=== PATIENT | female | born 1980 | race Caucasian/White ===

== ENCOUNTER 2020-04-11 17:10 | Inpatient (IN) | payer MEDICAID ==
[~2020-04-11] VITALS: Ht 160 cm; Wt 64.0 kg
[2020-04-11] MEDS ORDERED: IV NS 0.9% 1,000 ML BAG IV ONE ×2 (18:00→21:00)
--- NOTE | 2020-04-11 18:00 | NUR ---
SUDDEN ONSET EPIGASTRIC/RUQ PAIN X 15 MINS KITCHEN HAND. PT AAOX4, VSS. RR EVEN & UNLABORED. DENIES SOB, DIZZINESS, N/V/D AT THIS TIME. AWAITING EVAL BY DAYSI/PA. WILL CONT TO MONITOR.
[2020-04-11 18:04] LABS: BASOPHILS # (AUTO) 0.1 /CMM (0.0-0.2); BASOPHILS % (AUTO) 1.1 % (0.0-2.0); EOSINOPHILS % (AUTO) 1.3 % (0.0-6.0); HEMATOCRIT 32 % (33-45); HEMOGLOBIN 9.8 g/dL (11.5-14.8); LYMPHOCYTES # (AUTO) 1.7 /CMM (0.8-4.8); LYMPHOCYTES % (AUTO) 31.3 % (20.0-44.0); MEAN CORPUSCULAR HGB CONC 30 g/dl (31.0-36.0); MEAN CORPUSCULAR VOLUME 87 fL (82-100); MONOCYTES # (AUTO) 0.6 /CMM (0.1-1.30); MONOCYTES % (AUTO) 10.2 % (2.0-12.0); NEUTROPHILS % (AUTO) 56.1 % (43.0-81.0); PLATELET COUNT (AUTO) 185 /CMM (150-450); RED BLOOD CELL COUNT(AUTO) 3.73 MIL/uL (4.0-5.2); WHITE BLOOD COUNT (AUTO) 5.4 K/uL (4.3-11.0)
[2020-04-11 18:21] LABS: ALBUMIN 3.6 g/dL (3.4-5.0); BILIRUBIN,DIRECT 0.2 mg/dL (0.0-0.2); BILIRUBIN,TOTAL 0.5 mg/dL (0.2-1.0); TOTAL PROTEIN, SERUM 7.3 g/dL (6.4-8.2)
[2020-04-11] MEDS ORDERED: HYDROMORPHONE 1 MG/1 ML DISP.SYRIN ONE (18:35)
[2020-04-11] MEDS ORDERED: ONDANSETRON HCL/PF 4 MG/2 ML VIAL ONE (18:35)
[2020-04-11] MEDS ORDERED: LORAZEPAM INJ 2 MG/ML VIAL ONE (18:36)
--- NOTE | 2020-04-11 18:45 | NUR ---
MEDICATED FOR PAIN PER PA'S ORDER, PT JAMILA WELL.
[2020-04-11] MEDS ORDERED: LORAZEPAM INJ 2 MG/ML VIAL IV ONE (19:00)
[2020-04-11] MEDS ORDERED: ONDANSETRON HCL/PF - ER 4 MG/2 ML VIAL IV ONE (19:00)
[2020-04-11] MEDS ORDERED: HYDROMORPHONE 1 MG/1 ML DISP.SYRIN IV ONE (19:00)
--- NOTE | 2020-04-11 19:26 | NUR ---
PT TO CT VIA [facility].
--- NOTE | 2020-04-11 19:50 | NUR ---
PT BACK FROM CT. PT VSS. RR EVEN & UNLABORED. PT STS PAIN " A LITTLE BETTER " ABD PAIN 01/15. DENIES CP, SOB, DIZZINESS, N/V AT THIS TIME. WILL CONT TO MONITOR.
[2020-04-11] MEDS ORDERED: HALOPERIDOL LACTATE INJ 5 MG/ML VIAL IV ONE (21:00)
--- NOTE | 2020-04-11 21:32 | NUR ---
LAB CALLED REGARDING NEGATIVE COVID RESULT.
[2020-04-11 21:56] LABS: BILIRUBIN,URINE Negative (NEGATIVE); BLOOD, URINE Large Ery/uL (NEGATIVE); COLOR,URINE Yellow (YELLOW); LEUKOCYTE ESTERASE ,URINE Negative (NEGATIVE); NITRITE, URINE Negative (NEGATIVE); PH,URINE 7.5 (5.0-8.0); PROTEIN,URINE Trace mg/dl (NEGATIVE); UGLUCOSE Negative (NEGATIVE)
[2020-04-11] MEDS ORDERED: HALOPERIDOL LACTATE INJ 5 MG/ML VIAL ONE (21:58)
--- NOTE | 2020-04-11 21:59 | NUR ---
M/S 322-2
[2020-04-11 22:02] LABS: BACTERIA,URINE Rare /HPF (None Seen); RBC,URINE 21-50 /HPF (0-2); SQUAMOUS EPITHELIAL CELL,UR Few /HPF (None Seen); WBC,URINE NONE SEEN /HPF (0-3)
[2020-04-11 22:05] LABS: CALCIUM, SERUM 9.4 mg/dL (8.5-10.1); CREATININE 0.6 mg/dL (0.6-1.3); POTASSIUM 3.8 mmol/L (3.5-5.1)
--- NOTE | 2020-04-11 22:13 | NUR ---
REPORT GIVEN TO IOANA JONES FOR IRON.
[2020-04-11] MEDS ORDERED: ONDANSETRON HCL/PF 4 MG/2 ML VIAL IVP PRN (22:30)
[2020-04-11] MEDS ORDERED: Potassium Chloride 10 MEQ in IV D5/0.45 NACL 1,000 ML IV PRN (22:30)
[2020-04-11] MEDS ORDERED: ACETAMINOPHEN 650 MG/SUPP.RECT RC PRN (22:30)
--- NOTE | 2020-04-11 22:35 | NUR ---
RN MS OPENING ADMITTING NOTES RECEIVED PATIENT FROM ER SAFELY TRANSFERRED TO BED AMBULATORY STEADY, AWAKE ALERT AND ORIENTED X4, RESPIRATIONS EVEN AND UNLABORED WITH EQUAL RISE AND FALL OF CHEST, IV SITE TO RIGHT FA #22 G INTACT AND PATENT, NO REDNESS, NO INFILTRATION PRESENT, VS WNL, ORIENTED TO STAFF AND CALL LIGHT AND KEPT WITHIN REACH, SAFETY PRECAUTIONS RENDERED LOW BED AND LOCKED, BELONGINGS LIST DONE, DENIES ANY SKIN ISSUES, ALL NEEDS ATTENDED AT THIS TIME, WILL CONTINUE TO MONITOR AND ATTEND TO NEEDS.
[2020-04-11] MEDS: HYDROMORPHONE INJ 2 MG/ML DISP.SYRIN IV PRN (22:47)
--- NOTE | 2020-04-11 22:47 | NUR ---
RN NOTES PATIENT COMPLAINED OF PAIN 9/10 TO ABDOMEN AREA, REQUESTING FOR PAIN MEDICATION, DILAUDID PRN ORDERED GIVEN , WITNESSED AND WASTED WITH IOANA BRYAN, ALL NEEDS ATTENDED WILL CONTINUE TO MONITOR AND ATTEND TO NEEDS, AWAITING IVF FROM NIGHT LOCKER.
[2020-04-11 23:11] VITALS: BP 135/89
--- NOTE | 2020-04-11 23:47 | NUR ---
RN MS NOTES MD MADE AWARE D5 1/2 NS 10 MEQ POTASSIUM CHLORIDE NOT AVAILABLE WITH NEW ORDER FOR D5 1/2 NS AT 125ML/HR, ORDER READ BACK AND CARRIED OUT.
[2020-04-11] MEDS: IV D5/0.45 NACL 1,000 ML IV SCH (23:49)
[2020-04-12] MEDS: HYDROMORPHONE INJ 2 MG/ML DISP.SYRIN IV PRN ×5 (04:23→21:31)
--- NOTE | 2020-04-12 04:23 | NUR ---
rn notes patient c/o pain to abdomen 02/15 requested for pain medication, dilaudid prn given as ordered ,witness and wasted with meliton carr, vs wnl, will continue to monitor.
[2020-04-12 06:27] LABS: BASOPHILS % (AUTO) 0.3 % (0.0-2.0); EOSINOPHILS % (AUTO) 0.6 % (0.0-6.0); HEMATOCRIT 27 % (33-45); HEMOGLOBIN 8.4 g/dL (11.5-14.8); LYMPHOCYTES # (AUTO) 0.7 /CMM (0.8-4.8); LYMPHOCYTES % (AUTO) 15.5 % (20.0-44.0); MEAN CORPUSCULAR HGB CONC 31 g/dl (31.0-36.0); MEAN CORPUSCULAR VOLUME 84 fL (82-100); MONOCYTES # (AUTO) 0.4 /CMM (0.1-1.30); MONOCYTES % (AUTO) 10.4 % (2.0-12.0); NEUTROPHILS # (AUTO) 3.2 /CMM (1.8-8.9); NEUTROPHILS % (AUTO) 73.2 % (43.0-81.0); PLATELET COUNT (AUTO) 141 /CMM (150-450); RED BLOOD CELL COUNT(AUTO) 3.24 MIL/uL (4.0-5.2); WHITE BLOOD COUNT (AUTO) 4.3 K/uL (4.3-11.0)
[2020-04-12 06:48] LABS: ALBUMIN 2.7 g/dL (3.4-5.0); BILIRUBIN,TOTAL 0.5 mg/dL (0.2-1.0); CALCIUM, SERUM 7.7 mg/dL (8.5-10.1); CREATININE 0.4 mg/dL (0.6-1.3); MAGNESIUM 1.7 mg/dL (1.8-2.4); PHOSPHORUS 3.1 mg/dL (2.5-4.9); POTASSIUM 3.3 mmol/L (3.5-5.1); THYROID STIMULATING HORMONE 5.366 uIU/mL (0.358-3.74); TOTAL PROTEIN, SERUM 5.5 g/dL (6.4-8.2)
--- NOTE | 2020-04-12 06:53 | NUR ---
RN MS CLOSING NOTES PATIENT IN BED CURRENTLY SLEEPING , EASILY AROUSABLE. ALERT AND ORIENTED X4, RESPIRATIONS EVEN AND UNLABORED WITH EQUAL RISE AND FALL OF CHEST, IV SITE TO RIGHT FA #22 G INTACT AND PATENT, NO REDNESS, NO INFILTRATION PRESENT, VS WNL, IVF RUNNING ORDERED, CALL LIGHT KEPT WITHIN REACH, SAFETY PRECAUTIONS RENDERED LOW BED AND LOCKED, REMAINS NPO, DENIES ANY SKIN ISSUES, ALL NEEDS ATTENDED AT THIS TIME, WILL CONTINUE TO MONITOR AND ATTEND TO NEEDS AND ENDORSE TO NEXT SHIFT.
[2020-04-12] MEDS: IV D5/0.45 NACL 1,000 ML IV SCH (07:14)
--- NOTE | 2020-04-12 07:17 | NUR ---
RN MS NOTES TOILETING OFFERED STATES SHE IS OKAY DOESNT NEED TO USE RESTROOM AT THIS TIME.
--- NOTE | 2020-04-12 07:30 | NUR ---
RN OPENING NOTES RECEIVED PT IN BED. AWAKE ALERT AND ORIENTED X3. NO CARDIAC OR RESPIRATORY DISTRESS NOTED. NO SOB NOTED. SATURATING WELL ON ROOM AIR. CONTINOUS TO BE NPO. IV ACCESS NOTED ON RFA G20. INTACT AND PATENT AND FLUSHING WELL. NO S/D OF INFECTION OR INFILTRATION NOTED. SAFETY PRECAUTIONS IN PLACE. BED LOCKED AND IN LOW POSITION. SIDE RAILS UP X2. BED ALARM DICTAPHONE TRANSCRIBER LIGHT WITHIN REACH.
[2020-04-12 08:00] VITALS: BP 113/71
[2020-04-12] MEDS ORDERED: CLON0.5T PO (10:55)
[2020-04-12] MEDS: POTASSIUM CL. PREMIX PERIPHER. 50 ML IV SCH ×2 (12:06→13:05)
[2020-04-12] MEDS: LORAZEPAM INJ 2 MG/ML VIAL IV PRN ×2 (12:18→18:21)
[2020-04-12] MEDS: Magnesium 1GM/D5W 100ML PREMIX 100 ML IV SCH ×2 (14:20→15:41)
[2020-04-12] MEDS ORDERED: IBUP-1953 PO (14:50)
[2020-04-12 16:00] VITALS: BP 122/76
--- NOTE | 2020-04-12 18:20 | NUR ---
PT COMPLAINING OF ANXIETY AND BEING NERVOUS AND WORRIED. PROVIDED CALM ENVIRONMENT AND DISTRACTION. ADMINSTERED ATIVAN 1MG VIA IV. TOLERATED WELL.
--- NOTE | 2020-04-12 18:33 | NUR ---
RN CLOSING NOTES PT IN BED. AWAKE ALERT AND ORIENTED X3. NO CARDIAC OR RESPIRATORY DISTRESS NOTED. NO SOB NOTED. SATURATING WELL ON ROOM AIR. CONTINOUS TO BE NPO. IV ACCESS NOTED ON RFA G20. INTACT AND PATENT AND FLUSHING WELL. NO S/S OF INFECTION OR INFILTRATION NOTED. ALL NEEDS MET AND ATTENDED. ALL DUE MEDS ADMINISTERED. NO ASE NOTED. SAFETY PRECAUTIONS IN PLACE. BED LOCKED AND IN LOW POSITION. SIDE RAILS UP X2. BED ALARM EVENT CREW TECHNICIAN LIGHT WITHIN REACH.
--- NOTE | 2020-04-12 19:00 | NUR ---
RN MS OPENING NOTES RECEIVED PATIENT IN BED CURRENTLY SLEEPING , EASILY AROUSABLE. ALERT AND ORIENTED X4, RESPIRATIONS EVEN AND UNLABORED WITH EQUAL RISE AND FALL OF CHEST, IV SITE TO RIGHT FA #20 G INTACT AND PATENT, NO REDNESS, NO INFILTRATION PRESENT, VS WNL, IVF RUNNING ORDERED, ORIENTED TO STAFF AND CALL LIGHT, KEPT WITHIN REACH, SAFETY PRECAUTIONS RENDERED LOW BED AND LOCKED, REMAINS NPO, DENIES ANY SKIN ISSUES, ALL NEEDS ATTENDED AT THIS TIME, WILL CONTINUE TO MONITOR AND ATTEND TO NEEDS .
[2020-04-12 19:54] VITALS: BP 122/73
[2020-04-12 20:00] VITALS: BP 122/73
--- NOTE | 2020-04-12 21:33 | NUR ---
rn notes pt complained of pain 10/10 to abdomen area, requested for pain medication, dilaudid prn as ordered given. vs wnl.will continue to monitor for effectiveness. dilaudid prn was given as ordered, witnessed and wasted with meliton carr, 1mg/0.5ml was given, 1mg wasted.
[2020-04-13] MEDS: IV D5/0.45 NACL 1,000 ML IV SCH (02:34)
[2020-04-13] MEDS: HYDROMORPHONE INJ 2 MG/ML DISP.SYRIN IV PRN ×4 (02:46→19:31)
[2020-04-13 06:24] LABS: BASOPHILS % (AUTO) 0.4 % (0.0-2.0); EOSINOPHILS % (AUTO) 0.5 % (0.0-6.0); HEMATOCRIT 28 % (33-45); HEMOGLOBIN 8.9 g/dL (11.5-14.8); LYMPHOCYTES % (AUTO) 14.4 % (20.0-44.0); MEAN CORPUSCULAR HGB CONC 32 g/dl (31.0-36.0); MEAN CORPUSCULAR VOLUME 84 fL (82-100); MONOCYTES # (AUTO) 0.9 /CMM (0.1-1.30); MONOCYTES % (AUTO) 13.4 % (2.0-12.0); NEUTROPHILS # (AUTO) 4.9 /CMM (1.8-8.9); NEUTROPHILS % (AUTO) 71.3 % (43.0-81.0); PLATELET COUNT (AUTO) 147 /CMM (150-450); RED BLOOD CELL COUNT(AUTO) 3.36 MIL/uL (4.0-5.2); WHITE BLOOD COUNT (AUTO) 6.9 K/uL (4.3-11.0)
--- NOTE | 2020-04-13 06:26 | NUR ---
RN MS CLOSING NOTES PATIENT IN BED CURRENTLY SLEEPING , EASILY AROUSABLE. ALERT AND ORIENTED X4, RESPIRATIONS EVEN AND UNLABORED WITH EQUAL RISE AND FALL OF CHEST, IV SITE TO RIGHT FA #20 G INTACT AND PATENT, NO REDNESS, NO INFILTRATION PRESENT, VS WNL, IVF RUNNING ORDERED, CALL LIGHT KEPT WITHIN REACH, SAFETY PRECAUTIONS RENDERED LOW BED AND LOCKED, REMAINS NPO, DENIES ANY SKIN ISSUES, ALL NEEDS ATTENDED AT THIS TIME, WILL CONTINUE TO MONITOR AND ATTEND TO NEEDS AND ENDORSE TO NEXT SHIFT.
[2020-04-13 06:58] LABS: CALCIUM, SERUM 8.1 mg/dL (8.5-10.1); CREATININE 0.3 mg/dL (0.6-1.3); MAGNESIUM 2.2 mg/dL (1.8-2.4); POTASSIUM 3.2 mmol/L (3.5-5.1)
--- NOTE | 2020-04-13 07:11 | NUR ---
MS RN OPENING NOTES RECEIVED PATIENT IN BED, AWAKE, A/O X4. PATIENT ON ROOM AIR; BREATHING EVEN AND UNLABORED; NO SOB NOTED. PATIENT ABLE TO SELF AMBULATE AND MAKES NEEDS KNOWN. NO COMPLAINS OF PAIN AT THIS TIME. RFA # 20 INTACT AND INFUSING D5 1/2 NS AT 125 MLS/HR. SAFETY PRECAUTIONS IN PLACE; BED IN LOW POSITION AND LOCKED, RAILS UP X2, CALL LIGHT WITHIN REACH. WILL CONTINUE TO MONITOR PATIENT.
[2020-04-13 08:00] VITALS: BP 124/64
--- NOTE | 2020-04-13 08:01 | NUR ---
MS RN NOTES PATIENT REQUESTED PAIN MEDICATION FOR PAIN 8/10 IN THE UPPER ABDOMEN. PRN MEDICATION GIVEN PER MD ORDER.
[2020-04-13] MEDS ORDERED: IBUPROFEN 400 MG TABLET PO PRN (08:30)
[2020-04-13] MEDS ORDERED: clonazePAM 0.5 MG TABLET PO PRN (08:30)
[2020-04-13] MEDS: POTASSIUM CL. PREMIX PERIPHER. 50 ML IV SCH ×4 (09:39→12:54)
--- NOTE | 2020-04-13 13:08 | NUR ---
MS RN NOTES PATIENT REQUESTED PAIN MEDICATION AGAIN FOR PAIN 8/10 IN THE UPPER ABDOMEN. PRN MEDICATION GIVEN PER MD ORDER.
--- NOTE | 2020-04-13 15:50 | NUR ---
MS RN NOTES ENDORSED PATIENT CARE TO NURSE PÉREZ. PATIENT MEDICALLY STABLE AND RESTING COMFORTABLY.
[2020-04-13 16:00] VITALS: BP 106/76
--- NOTE | 2020-04-13 16:00 | NUR ---
RN NOTES RECEIVED PATIENT FROM FELIBERTO TRIPLETT, PATIENT ALERT ORIENTED X 4. NO ACUTE DISTRESS NOTED ,BREATHING UNLABORED, NO SOB NOTED. IV ACCESS PATENT AND INTACT, NO REDNESS, NO SWELLING NOTED. SAFETY MEASURES IN PLACE. CALL LIGHT WITHIN REACH. WILL CONTINUE TO MONITOR ACCORDINGLY.
--- NOTE | 2020-04-13 19:00 | NUR ---
MS RN NOTES PATIENT IN BED ALERT ORIENTED X 4. NO ACUTE DISTRESS NOTED ,BREATHING UNLABORED, NO SOB NOTED. IV ACCESS PATENT AND INTACT, NO REDNESS, NO SWELLING NOTED. NEEDS ATTENDED AND ANTICIPATED. SAFETY MEASURES IN PLACE. CALL LIGHT WITHIN REACH. WILL ENDORSE TO NIGHT NURSE FOR CONTINUITY OF CARE.
--- NOTE | 2020-04-13 20:00 | NUR ---
MS/RN OPENING NOTE Patient awake in bed A/O x4, ambulatory. Breath sounds symmetrical, clear, unlabored. No JVD. CRP <3seconds. Pedal pulses 2+. Skin warm, pink, dry, appropriate for ethnicity, intact. ROM good in all extremities. Abdomen small, round, tenderness noted in RUQ. No difficulty voiding. Urine output clear, yellow, with BRP. IV site RFA 24g running D51/2NS @ 125 ml/hr, no redness or infiltration. Bed in low position, wheels locked, side rails up x2, call light within reach.
[2020-04-13 20:12] VITALS: BP 111/73
[2020-04-13 22:25] VITALS: BP 111/73
[2020-04-14] MEDS: HYDROMORPHONE INJ 2 MG/ML DISP.SYRIN IV PRN ×5 (00:29→19:49)
--- NOTE | 2020-04-14 00:29 | NUR ---
MS/RN NOTE Patient c/o pain in abdomen level 8, aching. Administered PRN dilaudid as ordered. VSS. Will continue to monitor.
--- NOTE | 2020-04-14 06:04 | NUR ---
MS/RN CLOSING NOTE Patient awake in bed A/O x4, ambulatory. Breath sounds symmetrical, clear, unlabored. No pain, N/V/D noted. No SOB or distress. Abdomen small, round, generalized tenderness noted on abdomen.. No difficulty voiding. Urine output clear, yellow, with BRP, void 2x no bowel movement. IV site RFA 24g running D51/2NS @ 125 ml/hr, no redness or infiltration. Bed in low position, wheels locked, side rails up x2, call light within reach.
[2020-04-14 08:00] VITALS: BP 121/83
[2020-04-14] MEDS: DOCUSATE SODIUM 100 MG CAPSULE PO SCH (10:10)
--- NOTE | 2020-04-14 15:58 | NUR ---
MEDICATED X2 THUS FAR FOR ABD. PAIN. STATES PASSING FLATUS.
[2020-04-14 16:00] VITALS: BP 119/70
--- NOTE | 2020-04-14 17:13 | NUR ---
iv site irritated and hep lock removed.restart of #24 angio.rt. upper arm.
--- NOTE | 2020-04-14 19:15 | NUR ---
RN OPENING NOTES Received patient awake on bed. On RA, no complaints made at this time. Call light within easy reach. Will continue to monitor accordingly.
[2020-04-14] MEDS: IV D5/0.45 NACL 1,000 ML IV SCH (19:43)
[2020-04-14 20:00] VITALS: BP 116/66
[2020-04-15] MEDS: HYDROMORPHONE INJ 2 MG/ML DISP.SYRIN IV PRN ×5 (03:53→20:42)
[2020-04-15] MEDS: IV D5/0.45 NACL 1,000 ML IV SCH (06:13)
--- NOTE | 2020-04-15 06:31 | NUR ---
RN CLOSING NOTES Pt resting on bed. Medicated for pain noted effective. All nursing needs attended, no new complaints noted. Endorsed.
[2020-04-15 08:00] VITALS: BP 116/71
[2020-04-15 08:21] LABS: BASOPHILS # (AUTO) 0.1 /CMM (0.0-0.2); BASOPHILS % (AUTO) 0.6 % (0.0-2.0); EOSINOPHILS % (AUTO) 1.5 % (0.0-6.0); HEMATOCRIT 28 % (33-45); HEMOGLOBIN 8.8 g/dL (11.5-14.8); LYMPHOCYTES # (AUTO) 1.1 /CMM (0.8-4.8); LYMPHOCYTES % (AUTO) 11.3 % (20.0-44.0); MEAN CORPUSCULAR HGB CONC 32 g/dl (31.0-36.0); MEAN CORPUSCULAR VOLUME 83 fL (82-100); MONOCYTES # (AUTO) 1.6 /CMM (0.1-1.30); MONOCYTES % (AUTO) 16.7 % (2.0-12.0); NEUTROPHILS # (AUTO) 6.5 /CMM (1.8-8.9); NEUTROPHILS % (AUTO) 69.9 % (43.0-81.0); PLATELET COUNT (AUTO) 228 /CMM (150-450); RED BLOOD CELL COUNT(AUTO) 3.36 MIL/uL (4.0-5.2); WHITE BLOOD COUNT (AUTO) 9.3 K/uL (4.3-11.0)
[2020-04-15] MEDS ORDERED: POTASSIUM CHLORIDE 20 MEQ TAB.PRT.SR PO ONE ×2 (08:30→12:00)
[2020-04-15 08:52] LABS: CALCIUM, SERUM 8.6 mg/dL (8.5-10.1); CREATININE 0.6 mg/dL (0.6-1.3); POTASSIUM 2.9 mmol/L (3.5-5.1)
[2020-04-15 09:17] LABS: EOSINOPHILS % (MANUAL) 2 % (0-4); LYMPHOCYTES % (MANUAL) 14 % (16-48); MONOCYTES % (MANUAL) 11 % (0-11.0); NEUTROPHILS % (MANUAL) 73 (42-76)
[2020-04-15] MEDS: DOCUSATE SODIUM 100 MG CAPSULE PO SCH (09:27)
[2020-04-15] MEDS ORDERED: MAGNESIUM HYDROXIDE 30 ML UDC PO PRN (14:30)
[2020-04-15 15:35] VITALS: BP 127/72
--- NOTE | 2020-04-15 18:30 | NUR ---
Patient is resting in room, awake alert and oriented x4. Steady gait , able to ambulate with no assistance. IV line intact and patent; flushing well. Patien was able to tolerate soft diet with no nausea and vomiting. She still complain of pain but stats it's getting better. Encourage patient to take milk of magnesia; per patient she hasn't have BM since Thursday. All needs attended. Patient kept comfortable at all times. will endorse to next shift for IRON
--- NOTE | 2020-04-15 19:40 | NUR ---
MS RN OPENING NOTES PATIENT AWAKE IN BED. A/OX4. STABLE ON RA. NO C/O SOB; BREATHING IS EVEN AND UNLABORED. PATIENT C/O SLIGHT ABDOMINAL CRAMPING; PER DAY SHIFT RN, PRN DILAUDID 1MG GIVEN EARLIER. IV PRESENT ON RIGHT UPPER ARM, SIZE 24, INTACT & PATENT, HEP LOCKED. SAFETY MEASURES IN PLACE AND PATIENT'S NEEDS MET. BED LOCKED, HOB ELEVATED, SIDE RAILS X2, CALL LIGHT WITHIN REACH. WILL CONTINUE TO MONITOR.
[2020-04-15 20:00] VITALS: BP 120/69
[2020-04-16 00:43] VITALS: BP 120/75
[2020-04-16] MEDS: HYDROMORPHONE INJ 2 MG/ML DISP.SYRIN IV PRN ×3 (00:46→09:49)
[2020-04-16 05:44] VITALS: BP 132/77
--- NOTE | 2020-04-16 06:49 | NUR ---
MS RN CLOSING NOTES PATIENT RESTING COMFORTABLY IN BED. A/OX4. STABLE ON RA. NO C/O SOB; BREATHING IS EVEN AND UNLABORED. NO C/O PAIN AT THIS TIME. IV PRESENT ON RIGHT UPPER ARM, SIZE 24, INTACT & PATENT, HEP LOCKED. SAFETY MEASURES IN PLACE AND PATIENT'S NEEDS MET. BED LOCKED, HOB ELEVATED, SIDE RAILS X2, CALL LIGHT WITHIN REACH. WILL ENDORSE TO DAY SHIFT RN PLAN OF CARE.
[2020-04-16 07:15] LABS: CALCIUM, SERUM 8.6 mg/dL (8.5-10.1); CREATININE 0.5 mg/dL (0.6-1.3); POTASSIUM 3.2 mmol/L (3.5-5.1)
[2020-04-16] MEDS ORDERED: HYDR-4384 PO (07:30)
--- NOTE | 2020-04-16 07:40 | NUR ---
MS RN OPENING NOTES BEDSIDE ENDORSEMENT DONE. PATIENT IS IN BED AWAKE AND VERBALLY RESPONSIVE. A/O X4, ABLE TO MAKE NEEDS KNOWN. BREATHING EVEN AND UNLABORED, TOLERATING ROOM AIR. NO SIGNS OF ACUTE DISTRESS. IV ON CHRIS #24 INTACT AND PATENT. SEEN BY DR. PHILLIP W/ BROOKE. SAFETY PRECAUTIONS IN PLACE: BED LOCKED AND ON LOWEST POSITION, SIDE RAILS UP X2, CALL LIGHT WITHIN REACH. WILL CONTINUE TO MONITOR.
[2020-04-16 08:00] VITALS: BP 113/71
[2020-04-16] MEDS ORDERED: POTASSIUM CHLORIDE 20 MEQ TAB.PRT.SR PO ONE (08:00)
[2020-04-16] MEDS: DOCUSATE SODIUM 100 MG CAPSULE PO SCH (08:39)
[2020-04-16 09:26] LABS: BASOPHILS # (AUTO) 0.1 /CMM (0.0-0.2); BASOPHILS % (AUTO) 0.8 % (0.0-2.0); EOSINOPHILS % (AUTO) 2.8 % (0.0-6.0); HEMATOCRIT 26 % (33-45); HEMOGLOBIN 8.1 g/dL (11.5-14.8); LYMPHOCYTES # (AUTO) 0.8 /CMM (0.8-4.8); LYMPHOCYTES % (AUTO) 11.1 % (20.0-44.0); MEAN CORPUSCULAR HGB CONC 31 g/dl (31.0-36.0); MEAN CORPUSCULAR VOLUME 83 fL (82-100); MONOCYTES # (AUTO) 1.3 /CMM (0.1-1.30); NEUTROPHILS % (AUTO) 67.3 % (43.0-81.0); PLATELET COUNT (AUTO) 286 /CMM (150-450); RED BLOOD CELL COUNT(AUTO) 3.15 MIL/uL (4.0-5.2); WHITE BLOOD COUNT (AUTO) 7.5 K/uL (4.3-11.0)
[2020-04-16 11:32] LABS: BAND % (MANUAL) 1 % (0.0-5.0); LYMPHOCYTES % (MANUAL) 6 % (16-48); MONOCYTES % (MANUAL) 13 % (0-11.0); NEUTROPHILS % (MANUAL) 80 (42-76)
--- NOTE | 2020-04-16 12:20 | NUR ---
PERSONNEL WORKER NOTES PATIENT WAS SEEN BY DR. PHILLIP TODAY W/ ORDER FOR DISCHARGE. PATIENT IS AWAKE AND VERBALLY RESPONSIVE, A/O X4, ABLE TO MAKE NEEDS KNOWN. BREATHING EVEN AND UNLABORED ON ROOM AIR. DISCHARGE INSTRUCTIONS AND EDUCATION PROVIDED TO PATIENT, VERBALIZED UNDERSTANDING OF INSTRUCTIONS AND HOME MEDICATION. BELONGINGS LIST AND DISCHARGE FORM SIGNED; BELONGINGS SENT HOME WITH PATIENT. NAME ARMBAND AND PERIPHERAL IV LINES REMOVED. ACCOMPANIED BY ME TO THE LOBBY VIA WHEELCHAIR AND PICKED UP BY [facility] VIA PRIVATE CAR. CHARGE NURSE AND MD AWARE OF DISCHARGE.
== END 2020-04-16 12:20 | disposition home or self-care (01) | DRG 282 ==
LOC: ER 17:30 → MED 22:18
PROVIDERS: ADMIT Nurse Practitioner Acute Care; ATTEND Family Medicine
DX: K85.90 Acute pancreatitis without necrosis or infection, unspecified (principal); D50.9 Iron deficiency anemia, unspecified; K76.0 Fatty (change of) liver, not elsewhere classified; F41.9 Anxiety disorder, unspecified; F10.10 Alcohol abuse, uncomplicated; Y90.0 Blood alcohol level of less than 20 mg/100 ml; Z88.8 Allergy status to other drugs, medicaments and biological substances; Z82.49 Family history of ischemic heart disease and other diseases of the circulatory system; R79.89 Other specified abnormal findings of blood chemistry; D63.8 Anemia in other chronic diseases classified elsewhere; N92.0 Excessive and frequent menstruation with regular cycle; E87.6 Hypokalemia
CPT/HCPCS: 36415; 71045-TC; 76700-TC; 80048-TC; 80053-TC; 80061-TC; 80076-TC; 81000-TC; 82728-TC; 83540-TC; 83690-TC; 83735-TC; 84100-TC; 84443-TC; 84484-TC; 84703-TC; 85025-TC; 87081-TC; C9803; G0378; G0480; J1170; J1630; J2060; J2405; J3475; J3480; J3490; J7030

== ENCOUNTER 2020-11-25 12:40 | Inpatient (IN) | payer MEDICAID, OTHER ==
[~2020-11-25] VITALS: Ht 160 cm; Wt 49.9 kg
[~2020-11-25 12:40] MED LIST: CLON0.5T PO; HYDR-4384 PO; IBUP-1953 PO
--- NOTE | 2020-11-25 12:40 | NUR ---
PT BIB FRIEND C/O ABDOMINAL PAIN AND N/V STARTED THIS MORNING. PT IS AAOX4, NOT IN RESPIRATORY DISTRESS, V/S STABLE, KEPT AND COMFORTABLE. WILL CONTINUE TO MONITOR.
[2020-11-25] MEDS ORDERED: ONDANSETRON HCL/PF 4 MG/2 ML VIAL ONE (12:51)
[2020-11-25] MEDS ORDERED: ONDANSETRON HCL/PF 4 MG/2 ML VIAL IVP ONE (13:00)
[2020-11-25] MEDS ORDERED: HYDROMORPHONE 1 MG/1 ML DISP.SYRIN ONE ×3 (13:00→16:38)
[2020-11-25] MEDS ORDERED: HYDROMORPHONE INJ 2 MG/ML DISP.SYRIN IV ONE (13:00)
[2020-11-25] MEDS ORDERED: IV NS 0.9% 1,000 ML BAG IV ONE ×2 (13:00→18:30)
--- NOTE | 2020-11-25 13:00 | NUR ---
IV LINE ESTABLISHED BLOOD DRAWN AND SENT TO LAB.
[2020-11-25 13:11] LABS: BASOPHILS # (AUTO) 0.1 /CMM (0.0-0.2); BASOPHILS % (AUTO) 1.1 % (0.0-2.0); EOSINOPHILS % (AUTO) 0.2 % (0.0-6.0); HEMATOCRIT 37 % (33-45); HEMOGLOBIN 11.2 g/dL (11.5-14.8); LYMPHOCYTES # (AUTO) 2.1 /CMM (0.8-4.8); LYMPHOCYTES % (AUTO) 18.7 % (20.0-44.0); MEAN CORPUSCULAR HGB CONC 31 g/dl (31.0-36.0); MEAN CORPUSCULAR VOLUME 74 fL (82-100); MONOCYTES # (AUTO) 0.8 /CMM (0.1-1.30); MONOCYTES % (AUTO) 7.1 % (2.0-12.0); NEUTROPHILS # (AUTO) 8.3 /CMM (1.8-8.9); NEUTROPHILS % (AUTO) 72.9 % (43.0-81.0); PLATELET COUNT (AUTO) 251 /CMM (150-450); RED BLOOD CELL COUNT(AUTO) 4.93 MIL/uL (4.0-5.2); WHITE BLOOD COUNT (AUTO) 11.4 K/uL (4.3-11.0)
[2020-11-25 13:32] LABS: BILIRUBIN,DIRECT 0.2 mg/dL (0.0-0.2); BILIRUBIN,TOTAL 0.6 mg/dL (0.2-1.0); CALCIUM, SERUM 9.3 mg/dL (8.5-10.1); CREATININE 0.5 mg/dL (0.6-1.3); TOTAL PROTEIN, SERUM 7.7 g/dL (6.4-8.2)
[2020-11-25 13:35] LABS: POTASSIUM 2.7 mmol/L (3.5-5.1)
[2020-11-25 14:06] LABS: LYMPHOCYTES % (MANUAL) 25 % (16-48); MONOCYTES % (MANUAL) 6 % (0-11.0); NEUTROPHILS % (MANUAL) 69 (42-76)
[2020-11-25] MEDS ORDERED: HYDR-4303 PO (14:18)
--- NOTE | 2020-11-25 14:27 | NUR ---
CALLED NURSING SUP FOR BED
--- NOTE | 2020-11-25 14:28 | NUR ---
SUBMITTED MOVE SHEET
[2020-11-25] MEDS ORDERED: POTASSIUM CL. PREMIX PERIPHER. 200 ML ONE (14:29)
[2020-11-25] MEDS ORDERED: ONDANSETRON HCL/PF 4 MG/2 ML VIAL IVP PRN (14:30)
[2020-11-25] MEDS ORDERED: HYDROMORPHONE 1 MG/1 ML DISP.SYRIN IV ONE ×2 (14:30→17:00)
[2020-11-25] MEDS ORDERED: MORPHINE SULFATE INJ 2 MG/ML DISP.SYRIN IV PRN (14:30)
[2020-11-25] MEDS: POTASSIUM CL. PREMIX PERIPHER. 50 ML IV SCH ×4 (14:36→17:25)
[2020-11-25 14:50] LABS: ALCOHOL, BLOOD < 3 mg/dL (0-0); MAGNESIUM 1.2 mg/dL (1.8-2.4)
[2020-11-25] MEDS ORDERED: Magnesium 1GM/D5W 100ML PREMIX 100 ML IV SCH (15:30)
[2020-11-25] MEDS ORDERED: Magnesium 1GM/D5W 100ML PREMIX 100 ML IV ONE (15:30)
--- NOTE | 2020-11-25 16:20 | NUR ---
PT IS WHEELED TO CT SCAN VIA [facility].
--- NOTE | 2020-11-25 17:14 | NUR ---
CALLED NURSING SUP FOR A BED. BED WILL OPEN AT 1800
--- NOTE | 2020-11-25 18:13 | NUR ---
BED 308-1
--- NOTE | 2020-11-25 18:22 | NUR ---
REPORT GIVEN TO IOANA SOL FOR IRON.
[2020-11-25] MEDS ORDERED: ONDANSETRON HCL/PF - ER 4 MG/2 ML VIAL IV ONE (18:30)
--- NOTE | 2020-11-25 18:39 | NUR ---
PATIENT TRANSFERRED FROM ER REPORTED BY ESME/RN. VITAL SIGN DOCUMENTED IN INTERVENTION.
[2020-11-25 18:43] VITALS: BP 166/98
[2020-11-25 20:00] VITALS: BP 158/103
--- NOTE | 2020-11-25 20:00 | NUR ---
TRANSFER CONTROLLER NOTES PT RECEIVED IN BED PT ALERT X 4 PT ON ROOM AIR TOLERATING WELL. PT REPORTING 10/10 ABDOMINAL PAIN PRN MORPHINE GIVEN. PT HAS IV ACCES IN THE RIGHT FOREARM 20 G INTACT CURRENTLY RUNNING IV FLUIDS IV PATENT AND INTACT. PT AMBULATORY STEADY GAIT. ALL NURSING NEEDS MET. CALL LIGHT WITHIN REACH. PT ORIENTED TO UNIT AND ROOM. SAFETY PRECAUTIONS FOLLOWED AT ALL TIMES. WILL CONTINUE TO MONITOR.
--- NOTE | 2020-11-25 21:00 | NUR ---
ENAMEL FINISHER NOTES PT REPORTING SEVERE PAIN EVEN THOUGH MORPHINE WAS GIVEN CONTACTED DIETARY AIDE . DIETARY AIDE MD DR PHILLIP GAVE ORDER TO D/C MORPHINE AND START THE PT ON DILAUDID 1MG Q4 PRN. ORDER NOTED AND CARRIED OUT.
[2020-11-26] VITALS: BP 153/102
[2020-11-26] MEDS: HYDROMORPHONE 1 MG/1 ML DISP.SYRIN IV PRN ×7 (00:11→21:55)
[2020-11-26] MEDS: IV NS 0.9% 1,000 ML IV PRN ×4 (01:32→19:25)
[2020-11-26 04:00] VITALS: BP 148/96
[2020-11-26 06:00] LABS: BASOPHILS % (AUTO) 0.1 % (0.0-2.0); HEMATOCRIT 35 % (33-45); HEMOGLOBIN 10.5 g/dL (11.5-14.8); LYMPHOCYTES # (AUTO) 0.5 /CMM (0.8-4.8); LYMPHOCYTES % (AUTO) 4.6 % (20.0-44.0); MEAN CORPUSCULAR HGB CONC 30 g/dl (31.0-36.0); MEAN CORPUSCULAR VOLUME 77 fL (82-100); MONOCYTES # (AUTO) 0.7 /CMM (0.1-1.30); MONOCYTES % (AUTO) 6.6 % (2.0-12.0); NEUTROPHILS # (AUTO) 9.7 /CMM (1.8-8.9); NEUTROPHILS % (AUTO) 88.7 % (43.0-81.0); PLATELET COUNT (AUTO) 167 /CMM (150-450); RED BLOOD CELL COUNT(AUTO) 4.53 MIL/uL (4.0-5.2); WHITE BLOOD COUNT (AUTO) 10.9 K/uL (4.3-11.0)
[2020-11-26 06:38] LABS: CALCIUM, SERUM 7.9 mg/dL (8.5-10.1); CREATININE 0.3 mg/dL (0.6-1.3); MAGNESIUM 1.6 mg/dL (1.8-2.4); POTASSIUM 3.7 mmol/L (3.5-5.1)
[2020-11-26 06:45] LABS: THYROID STIMULATING HORMONE 1.416 uIU/mL (0.358-3.74)
--- NOTE | 2020-11-26 08:00 | NUR ---
VIDEO PRODUCTION INTERN OPENING NOTES RECEIVED PATIENT IN BED, AWAKE. A/O X4. STABLE ON ROOM AIR - NO SOB NOTED. PATIENT STATES 10/10 ABDOMINAL PAIN AND BACK PAIN - DILAUDID 1MG WAS GIVEN AT 0600. I GAVE THE PATIENT A HOT PACK FOR NOW. PATIENT IS NPO. IV ACCESS TO RIGHT FOREARM #20 - INTACT - RUNNING NS @ 200ML/HR. SAFETY MEASURES IN PLACE. CALL LIGHT WITHIN REACH. WILL CONTINUE TO MONITOR.
--- NOTE | 2020-11-26 08:30 | NUR ---
GOVERNMENT AFFAIRS MANAGER NOTE PATIENT'S BLOOD PRESSURE @ 151/102. NOTIFIED MD FOR MEDICATION. CHARGE NURSE AWARE
[2020-11-26 08:48] VITALS: BP 151/102
[2020-11-26] MEDS: Magnesium 1GM/D5W 100ML PREMIX 100 ML IV SCH ×2 (10:00→11:21)
--- NOTE | 2020-11-26 11:36 | NUR ---
MOLDER MACHINE TENDER NOTE PER DR OSORIO - DOES NOT WANT TO GIVE BP MEDICATION.
[2020-11-26 12:11] VITALS: BP 160/100
--- NOTE | 2020-11-26 15:29 | NUR ---
Costume Designer consult: java web services developer consult requested for substance use. Patient is a 39-year-old, female. SW met with patient at her bedside in the med-surg unit. Patient was alert and oriented x4. Patient presented calm and appears well-groomed. Patient's girlfriend, Marco Delgadillo, , was at the bedside. Per chart, patient was brought in to the hospital on 11/25/20 for pancreatitis. Patient stated that she is currently living with her girlfriend at [address] [place] [id number] . 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 SW assessed patient's history of substance use and patient reported recent alcohol use. Patient did not want to elaborate on her frequency of alcohol use. Patient denied drug use. SW assessed patient's history of mental illness and patient stated that she has a history of Depression and Anxiety. Patient is currently taking Klonopin. Patient reported that she utilizes outpatient counseling services regularly. Patient denied suicidal or homicidal ideation. SW offered patient substance use and counseling resources and patient declined resources stating that she did not need them at this time. SW discussed discharge plan with the patient and patient stated that she will return to her prior living arrangement at home. Patient's girlfriend, Marco will provide patient with transportation. PLAN: Patient will return to her prior living arrangement at the time of discharge. No further SS intervention at this time, however, SW will remain available as needed.
--- NOTE | 2020-11-26 15:57 | NUR ---
MS RN NOTE PATIENT BP 160/105 - MD AWARE, STATES IT IS PAIN RELATED. DOES NOT WANT TO GIVE BP MEDICATION AT THIS TIME.
[2020-11-26 16:27] VITALS: BP 160/105
--- NOTE | 2020-11-26 18:34 | NUR ---
MS RN CLOSING NOTE PATIENT CURRENTLY LYING IN BED, AWAKE. FAMILY AT BEDSIDE. A/O X4. STABLE ON ROOM AIR - NO SOB OR DISTRESS NOTED. PATIENT STATES 10/ PAIN. LAST PAIN MED GIVEN @ 1830 - DILAUDID 1MG IV. PATIENT IS STILL NPO PER DIAGNOSIS. ICE CHIPS OK PER MD. IV ACCESS TO RIGHT AC #18 - PATENT AND INTACT - RUNNING NS @ 200ML/HR. PATIENT IS AMBULATORY. SAFETY MEASURES IN PLACE. CALL LIGHT WITHIN REACH. WILL ENDORSE TO OFFICE AIDE NURSE FOR IRON.
--- NOTE | 2020-11-26 19:15 | NUR ---
RN OPENING NOTE PATIENT IN BED, AWAKE. BREATHING EVEN AND UNLABORED, TOLERATES ROOM AIR AT 98% O2 SATURATION. PATIENT COMPLAINS SOF ABDOMINAL PAIN 03/17, PATIENT WAS GIVEN DILAUDID AT 1834. PROVIDED PATIENT A HOT PACK TO HELP WITH THE PAIN. IV ACCESS PATENT AND INTACT, IV FLUIDS RUNNING WELL. PATIENT AMBULATES TO THE BATHROOM. SAFETY MEASURES IN PLACE: JAGJIT LIGHT WITHIN REACH, BED IN LOCKED AND LOWEST POSITION, SIDE RAILS UP. WILL MONITOR PATIENT CLOSELY.
[2020-11-26 20:00] VITALS: BP 148/97
--- NOTE | 2020-11-26 21:55 | NUR ---
ADMINISTERED DILAUDID 1 MG FOR ABDOMINAL PAIN 10/10 ON PAIN SCALE 0-10. WILL REASSESS. INFORMED DR. PHILLIP REGARDING PATIENT'S REQUEST OF SLEEPING MEDICINE AND HOME MED OF KLONOPIN THAT WAS HELD DURING ADMISSION. PER MD, JUST CONTINUE PAIN CONTROL NO NEW ORDERS.
[2020-11-27] MEDS: HYDROMORPHONE 1 MG/1 ML DISP.SYRIN IV PRN ×8 (00:55→21:59)
[2020-11-27] MEDS: IV NS 0.9% 1,000 ML IV PRN ×3 (00:55→11:45)
--- NOTE | 2020-11-27 01:00 | NUR ---
GAVE PATIENT DILAUDID 1 MG FOR ABDOMINAL PAIN 10/10 ON PAIN SCALE 0-10. WILL REASSESS.
[2020-11-27 06:03] LABS: BASOPHILS % (AUTO) 0.2 % (0.0-2.0); EOSINOPHILS % (AUTO) 0.1 % (0.0-6.0); HEMATOCRIT 33 % (33-45); HEMOGLOBIN 10.3 g/dL (11.5-14.8); LYMPHOCYTES # (AUTO) 0.6 /CMM (0.8-4.8); LYMPHOCYTES % (AUTO) 5.1 % (20.0-44.0); MEAN CORPUSCULAR HGB CONC 31 g/dl (31.0-36.0); MEAN CORPUSCULAR VOLUME 75 fL (82-100); MONOCYTES % (AUTO) 8.1 % (2.0-12.0); NEUTROPHILS # (AUTO) 10.5 /CMM (1.8-8.9); NEUTROPHILS % (AUTO) 86.5 % (43.0-81.0); PLATELET COUNT (AUTO) 147 /CMM (150-450); RED BLOOD CELL COUNT(AUTO) 4.44 MIL/uL (4.0-5.2); WHITE BLOOD COUNT (AUTO) 12.1 K/uL (4.3-11.0)
[2020-11-27 07:02] LABS: ALBUMIN 2.7 g/dL (3.4-5.0); BILIRUBIN,TOTAL 0.5 mg/dL (0.2-1.0); CALCIUM, SERUM 7.9 mg/dL (8.5-10.1); CREATININE 0.3 mg/dL (0.6-1.3); MAGNESIUM 1.8 mg/dL (1.8-2.4); PHOSPHORUS 1.9 mg/dL (2.5-4.9); POTASSIUM 3.1 mmol/L (3.5-5.1); TOTAL PROTEIN, SERUM 5.7 g/dL (6.4-8.2)
--- NOTE | 2020-11-27 07:30 | NUR ---
RN CLOSING NOTE PATIENT IN BED, AWAKE. ABLE TO MAKE NEEDS KNOWN. BREATHING EVEN AND UNLABORED, TOLERATES ROOM AIR AT 98% O2 SATURATION. PATIENT COMPLAINS OF ABDOMINAL PAIN 03/17, PATIENT WAS GIVEN DILAUDID AT 0655. PROVIDED PATIENT A HOT PACK TO HELP WITH THE PAIN. IV ACCESS PATENT AND INTACT, IV FLUIDS RUNNING WELL. PATIENT AMBULATES TO THE BATHROOM. SAFETY MEASURES MAINTAINED. ALL NEEDS MET AND ATTENDED, ALL ORDERS CARRIED OUT. ENDORSED TO DAY SHIFT NURSE FOR IRON.
--- NOTE | 2020-11-27 07:39 | NUR ---
DERMATOLOGY PHYSICIAN OPENING NOTES RECEIVED PATIENT IN BED, AWAKE. A/O X4. STABLE ON ROOM AIR - NO SOB NOTED. PATIENT STATES 03/17 ABDOMINAL PAIN AND BACK PAIN - NEXT DOSE OF DILAUDID NOT DUE UNTIL 954. PATIENT IS STILL NPO. IV ACCESS TO RIGHT FOREARM #20 - INTACT - RUNNING NS @ 200ML/HR. SAFETY MEASURES IN PLACE. CALL LIGHT WITHIN REACH. WILL CONTINUE TO MONITOR. Addendum: 11/27/20 at 0744 by JULIEN THORPE RN PATIENT IS MS, NOT TELE
[2020-11-27 08:00] VITALS: BP 112/48
[2020-11-27] MEDS ORDERED: ACETAMINOPHEN 325 MG TABLET PO PRN ×2 (09:00→09:30)
[2020-11-27] MEDS: POTASSIUM CL. PREMIX PERIPHER. 50 ML IV SCH ×4 (11:31→14:53)
[2020-11-27 16:00] VITALS: BP 142/81
[2020-11-27] MEDS ORDERED: Sodium Phosphate 15 MMOL in IV NS 0.9% 245 ML IV SCH (16:00)
--- NOTE | 2020-11-27 18:42 | NUR ---
MS RN CLOSING NOTE PATIENT CURRENTLY LYING IN BED, AWAKE. FAMILY AT BEDSIDE. A/O X4. STABLE ON ROOM AIR - NO SOB OR DISTRESS NOTED. PATIENT STATES 10/10 PAIN. LAST PAIN MED GIVEN @ 1555 - DILAUDID 1MG IV. PATIENT IS FULL LIQUID DIET TOLERATED. IV ACCESS TO RIGHT HAND #22 - PATENT AND INTACT - RUNNING NS @ 200ML/HR. PATIENT IS AMBULATORY. SAFETY MEASURES IN PLACE. CALL LIGHT WITHIN REACH. WILL ENDORSE TO FRONT END WEB DEVELOPER NURSE FOR IRON.
--- NOTE | 2020-11-27 19:44 | NUR ---
MS RN OPENING PATIENT IN BED WITH HER OWN CLOTHES. A/OX4. IN HER LAPTOP, FAMILY MEMBER IN THE ROOM. NO S/S OF APPARENT DISTRESS. NO C/O PAIN AT THE MOMENT. IV ANTIBIOTIC RUNNING. SAFETY IN PLACE: BED IN LOWEST, LOCKED POSITION; CALL LIGHT WITHIN REACH. WILL CONTINUE TO MONITOR.
[2020-11-27 20:38] VITALS: BP 139/90
--- NOTE | 2020-11-27 22:03 | NUR ---
MS TRIPLETT NOTES]] Addendum: 11/27/20 at 2204 by AALIYAH EDUARDO RN MS TRIPLETT NOTES PATIENT C/O 02/15 PAIN. DILAUDID GIVEN AT THIS TIME. WILL REASSESS.
[2020-11-28] MEDS: HYDROMORPHONE 1 MG/1 ML DISP.SYRIN IV PRN ×8 (01:20→22:55)
--- NOTE | 2020-11-28 01:25 | NUR ---
MS RN NOTES PATIENT C/O 10/10 PAIN. DILAUDID GIVEN 1ML PRN. WILL REASSESS.
--- NOTE | 2020-11-28 04:24 | NUR ---
MS RN NOTES PATIENT C/O 10/10 PAIN. DILAUDID GIVEN PRN. V/S STABLE.
--- NOTE | 2020-11-28 06:52 | NUR ---
MS RN CLOSING NOTE PATIENT IN BED WITH EYES CLOSED. EASY TO AROUSE. A/OX4. NO S/S OF APPARENT DISTRESS. PAIN MANAGED WITH MEDICATIONS. AMBULATES WITHOUT ASSISTS. ALL NEEDS ATTENDED. SAFETY KEPT IN PLACE THE WHOLE SHIFT: BED IN LOWEST, LOCKED POSITION;CALL LIGHT WITHIN REACH. NO SIGNIFICANT CHANGE SINCE LAST SHIFT. WILL ENDORSE CARE TO AM SHIFT RN.
[2020-11-28 06:53] LABS: CALCIUM, SERUM 8.6 mg/dL (8.5-10.1); CREATININE 0.3 mg/dL (0.6-1.3); PHOSPHORUS 2.1 mg/dL (2.5-4.9); POTASSIUM 2.9 mmol/L (3.5-5.1)
--- NOTE | 2020-11-28 07:20 | NUR ---
MS RN NOTE PAIN 10/10. GIVEN DILAUDID 1ML. WILL ENDORSE ASSESSMENT TO AM NURSE.
--- NOTE | 2020-11-28 07:56 | NUR ---
MS RN OPENING NOTE PATIENT IS IN BED RESTING, PATIENT IS IN NO ACUTE DISTRESS. PATIENT IS ON ROOM AIR TOLERATING WELL. PATIENT IS ON DILAUDID EVERY 4 HOURS, DUE TO PAIN. SAFETY PRECAUTIONS ARE ON, BED IS LOCKED IN THE LOWEST POSITION, WITH SIDE RAILS UP, CALL LIGHT WITHIN REACH, WILL CONTINUE TO MONITOR CLOSELY THOROUGH OUT THE SHIFT.
[2020-11-28 08:00] VITALS: BP 132/90
[2020-11-28] MEDS: IV NS 0.9% 1,000 ML IV PRN (09:02)
[2020-11-28] MEDS ORDERED: K PHOS NEUTRAL 250 MG TABLET PO ONE (10:00)
[2020-11-28] MEDS: POTASSIUM CHLORIDE 20 MEQ TAB.PRT.SR PO SCH ×2 (10:05→11:37)
--- NOTE | 2020-11-28 18:38 | NUR ---
MS RN CLOSING NOTE PATIENT IS IN BED RESTING, PATIENT IS IN NO ACUTE DISTRESS. PATIENT IS ON ROOM AIR TOLERATING WELL. PATIENT IS ON DILAUDID EVERY 3 HOURS, DUE TO PAIN. SAFETY PRECAUTIONS ARE ON, BED IS LOCKED IN THE LOWEST POSITION, WITH SIDE RAILS UP, CALL LIGHT WITHIN REACH, ENDORSE PATIENT TO ANIMAL SITTER NURSE FOR IRON.
--- NOTE | 2020-11-28 19:30 | NUR ---
MS RN OPENING NOTE PATIENT IS IN BED AWAKE ALERT AND ORIENTED X4, PATIENT IS IN NO ACUTE DISTRESS NOTED. PATIENT IS ON ROOM AIR TOLERATING WELL, NO SOB NOTED AT THIS TIME. IV ACCES ON R HAND G#22 PATENT AND FLUSHES WELL. SAFETY PRECAUTIONS OBSERVED: BED ON LOWEST LOCKED POSITION, KEPT SIDE RAILS UP X 2, KEPT CALL LIGHT WITHIN EASY REACH, INSTRUCTED TO USE CALL LIGHT WHEN ASSISTANCE IS NEEDED, PATIENT VERBALIZED UNDERSTANDING. NO COMPLAINTS OF PAIN AND/OR DISCOMFORT AT THIS TIME. WILL CONTINUE TO MONITOR PATIENT'S CURRENT STATUS.
--- NOTE | 2020-11-28 19:47 | NUR ---
PAIN MANAGEMENT PATIENT HAS C/O OF ABDOMINAL PAIN WITH PAIN SCALE OF 10/10. DUE PRN DILAUDID GIVEN ORDERED. WILL CONTINUE TO MONITOR PATIENT'S PAIN STATUS.
[2020-11-28 20:00] VITALS: BP 139/90
[2020-11-28 20:16] VITALS: BP 139/90
--- NOTE | 2020-11-28 22:55 | NUR ---
PAIN MANAGEMENT PATIENT HAS C/O OF ABDOMINAL PAIN WITH PAIN SCALE OF 8/10. DUE DILAUDID GIVEN ORDERED. WILL CONTINUE TO MONITOR PATIENT'S PAIN STATUS.
[2020-11-29] MEDS: HYDROMORPHONE 1 MG/1 ML DISP.SYRIN IV PRN ×7 (01:57→21:09)
--- NOTE | 2020-11-29 05:18 | NUR ---
PAIN MANAGEMENT PATIENT HAS C/O OF ABDOMINAL PAIN WITH PAIN SCALE OF 8/10. DUE DILAUDID GIVEN ORDERED. WILL CONTINUE TO MONITOR PATIENT'S PAIN STATUS.
--- NOTE | 2020-11-29 06:41 | NUR ---
MS RN CLOSING NOTES PATIENT IN BED, AWAKE, A&O X 4, VS WNL. NOT IN ANY FORM OF ACUTE DISTRESS NOTED. ON ROOM AIR TOLERATING WELL. NO SOB NOTED. NO COMPLAINTS OF PAIN AT THIS TIME. NO N/V THROUGHOUT THE SHIFT. SAFETY PRECAUTIONS OBSERVED AND MAINTAINED DURING THE SHIFT: BED ON LOWEST LOCKED POSITION, SIDE RAILS UP X 2. KEPT CALL LIGHT WITHIN EASY REACH. ALL NEEDS ATTENDED AND MET. DUE MEDS GIVEN ORDERED. ENDORSED TO MORNING SHIFT NURSE FOR CONTINUITY OF CARE.
--- NOTE | 2020-11-29 07:15 | NUR ---
MS RN OPENING NOTE PATIENT IS IN BED RESTING, PATIENT IS IN NO ACUTE DISTRESS. PATIENT IS ON ROOM AIR TOLERATING WELL. PATIENT WITH PERIPHERAL IV ACCESS ON THE RIGHT HAND G22, PATENT AND INTACT. SAFETY PRECAUTIONS ARE ON, BED IS LOCKED IN THE LOWEST POSITION, WITH SIDE RAILS UP, CALL LIGHT WITHIN REACH, WILL CONTINUE TO MONITOR CLOSELY THOROUGH OUT THE SHIFT.
[2020-11-29 07:32] LABS: CALCIUM, SERUM 8.7 mg/dL (8.5-10.1); CREATININE 0.4 mg/dL (0.6-1.3); PHOSPHORUS 3.2 mg/dL (2.5-4.9); POTASSIUM 2.9 mmol/L (3.5-5.1)
[2020-11-29] MEDS ORDERED: POTASSIUM CHLORIDE 20 MEQ TAB.PRT.SR PO ONE ×2 (10:30→13:00)
[2020-11-29] MEDS: POTASSIUM CHLORIDE 20 MEQ TAB.PRT.SR PO SCH ×3 (10:38→13:03)
--- NOTE | 2020-11-29 19:00 | NUR ---
MS RN CLOSING NOTES PATIENT IN BED, A&O X 4. ON ROOM AIR TOLERATING WELL, WITH NO SIGNS OF DISTRESS. NO SOB NOTED. NO COMPLAINTS OF PAIN AT THIS TIME. NO NAUSEA AND VOMITING THROUGHOUT THE SHIFT. SAFETY PRECAUTIONS OBSERVED AND MAINTAINED DURING THE SHIFT: BED ON LOWEST LOCKED POSITION, SIDE RAILS UP X 2. KEPT CALL LIGHT WITHIN EASY REACH. ALL NEEDS ATTENDED AND MET. DUE MEDS GIVEN ORDERED. ENDORSED TO NEXT SHIFT FOR CONTINUITY OF CARE.
--- NOTE | 2020-11-29 19:30 | NUR ---
MS RN OPENING NOTE PATIENT IN BED AWAKE ALERT AND ORIENTED X4, NO ACUTE DISTRESS NOTED. PATIENT IS ON ROOM AIR TOLERATING WELL, NO SOB NOTED AT THIS TIME. IV ACCES ON R HAND G#22, INTACT, PATENT AND FLUSHES WELL. SAFETY PRECAUTIONS OBSERVED: BED ON LOWEST LOCKED POSITION, KEPT SIDE RAILS UP X 2, KEPT CALL LIGHT WITHIN EASY REACH, INSTRUCTED TO USE CALL LIGHT WHEN ASSISTANCE IS NEEDED, PATIENT VERBALIZED UNDERSTANDING. NO COMPLAINTS OF PAIN AND/OR DISCOMFORT AT THIS TIME. WILL CONTINUE TO MONITOR PATIENT'S CURRENT STATUS.
[2020-11-29 20:00] VITALS: BP 131/84
[2020-11-30] MEDS: HYDROMORPHONE 1 MG/1 ML DISP.SYRIN IV PRN ×5 (00:19→14:03)
--- NOTE | 2020-11-30 00:19 | NUR ---
PAIN MANAGEMENT PATIENT C/O OF ABDOMINAL PAIN WITH PAIN SCALE OF 8/10. DUE PRN DILAUDID GIVEN ORDERED.
[2020-11-30 06:24] LABS: BASOPHILS % (AUTO) 0.6 % (0.0-2.0); EOSINOPHILS % (AUTO) 1.3 % (0.0-6.0); HEMATOCRIT 32 % (33-45); LYMPHOCYTES # (AUTO) 0.8 K/uL (0.8-4.8); LYMPHOCYTES % (AUTO) 12.3 % (20.0-44.0); MEAN CORPUSCULAR HGB CONC 31 g/dl (31.0-36.0); MEAN CORPUSCULAR VOLUME 74 fL (82-100); MONOCYTES # (AUTO) 1.2 K/uL (0.1-1.30); MONOCYTES % (AUTO) 17.9 % (2.0-12.0); NEUTROPHILS # (AUTO) 4.7 K/uL (1.8-8.9); NEUTROPHILS % (AUTO) 67.9 % (43.0-81.0); PLATELET COUNT (AUTO) 231 K/uL (150-450); RED BLOOD CELL COUNT(AUTO) 4.35 MIL/uL (4.0-5.2); WHITE BLOOD COUNT (AUTO) 6.9 K/uL (4.3-11.0)
[2020-11-30 07:28] LABS: ALBUMIN 2.6 g/dL (3.4-5.0); BILIRUBIN,TOTAL 0.6 mg/dL (0.2-1.0); CALCIUM, SERUM 8.7 mg/dL (8.5-10.1); CREATININE 0.4 mg/dL (0.6-1.3); MAGNESIUM 1.7 mg/dL (1.8-2.4); PHOSPHORUS 2.6 mg/dL (2.5-4.9); POTASSIUM 3.6 mmol/L (3.5-5.1); TOTAL PROTEIN, SERUM 6.5 g/dL (6.4-8.2)
[2020-11-30 08:17] VITALS: BP 124/85
[2020-11-30] MEDS ORDERED: NAPR-1164 PO (08:48)
[2020-11-30] MEDS ORDERED: HYDR-3980 PO (08:48)
--- NOTE | 2020-11-30 09:10 | NUR ---
MS RN NOTE MD ORDERED DISCHARGE FOR PATIENT. PATIENT NOTIFIED OF MD ORDER. HEALTH TEACHING DONE REGARDING DISCHARGE ORDERS AND INSTRUCTIONS. PATIENT VERBALIZED UNDERSTANDIGN AND APPRECIATION. COMFORT MEASURES PROVIDED. NOT IN DISTRESS. VITAL SIGNS WITHIN NORMAL LIMITS. PATIENT REQUESTED TO HAVE PAIN MEDICATION BEFORE DISCHARGE. WILL CONTINUE MONITOR PATIENT.
[2020-11-30] MEDS: Magnesium 1GM/D5W 100ML PREMIX 100 ML IV SCH ×2 (10:37→11:38)
[2020-11-30 12:40] LABS: EOSINOPHILS % (MANUAL) 1 % (0-4); LYMPHOCYTES % (MANUAL) 11 % (16-48); MONOCYTES % (MANUAL) 16 % (0-11.0); NEUTROPHILS % (MANUAL) 72 (42-76)
--- NOTE | 2020-11-30 14:00 | NUR ---
MS TRIPLETT NOTES PATIENT DISCHARGED ORDERED. PATIENT IN STABLE CONDITION, WITH NO SIGNS OF DISTRESS. PATIENT ACCOMPANIED DOWNSTAIRS ON A WHEELCHAIR AND WAS PICKED UP BY HER FRIEND/ROOMMATE ON A PRIVATE CAR. Addendum: 11/30/20 at 1514 by ARPAN AVALOS RN ADDENDUM IV ACCESS REMOVED INDICATED AND COVERED WITH BANDAID, WITH NO BLEEDING NOTED.
== END 2020-11-30 14:10 | disposition home or self-care (01) | DRG 282 ==
LOC: ER 12:42 → TELE 18:18 → MED 11-26 17:00
PROVIDERS: ATTEND Nurse Practitioner Acute Care
DX: K85.20 Alcohol induced acute pancreatitis without necrosis or infection (principal); K76.0 Fatty (change of) liver, not elsewhere classified; E83.39 Other disorders of phosphorus metabolism; D50.9 Iron deficiency anemia, unspecified; E87.6 Hypokalemia; E83.42 Hypomagnesemia; Z20.822 Contact with and (suspected) exposure to COVID-19; Z82.49 Family history of ischemic heart disease and other diseases of the circulatory system; Z88.8 Allergy status to other drugs, medicaments and biological substances; Z79.899 Other long term (current) drug therapy; R74.01 Elevation of levels of liver transaminase levels
CPT/HCPCS: 36415; 80048-TC; 80053-TC; 80061-TC; 80076-TC; 83690-TC; 83735-TC; 84100-TC; 84443-TC; 84484-TC; 85025-TC; 87081-TC; A9563; C9803; G0378; G0480; J1170; J2270; J2405; J3475; J3480; J7030; J7050

== ENCOUNTER 2022-06-05 17:06 | Emergency (ER) | payer OTHER ==
[~2022-06-05] VITALS: Ht 160 cm; Wt 48.1 kg
[~2022-06-05 17:06] MED LIST changes: +HYDR-3980 PO; -HYDR-4384 PO; -IBUP-1953 PO; +NAPR-1164 PO
--- NOTE | 2022-06-05 18:00 | NUR ---
Reclining in [facility]. NO obvious distress- on the phone surfing the net
[2022-06-05 18:01] LABS: BASOPHILS % (AUTO) 1.6 % (0.0-2.0); EOSINOPHILS % (AUTO) 0.6 % (0.0-6.0); HEMATOCRIT 36 % (33-45); HEMOGLOBIN 10.8 g/dL (11.5-14.8); LYMPHOCYTES % (AUTO) 36.8 % (20.0-44.0); MEAN CORPUSCULAR HGB CONC 31 g/dl (31.0-36.0); MEAN CORPUSCULAR VOLUME 74 fL (82-100); MONOCYTES # (AUTO) 0.3 K/uL (0.1-1.30); MONOCYTES % (AUTO) 11.9 % (2.0-12.0); NEUTROPHILS # (AUTO) 1.3 K/uL (1.8-8.9); NEUTROPHILS % (AUTO) 49.1 % (43.0-81.0); PLATELET COUNT (AUTO) 136 K/uL (150-450); RED BLOOD CELL COUNT(AUTO) 4.77 MIL/uL (4.0-5.2); WHITE BLOOD COUNT (AUTO) 2.7 K/uL (4.3-11.0)
[2022-06-05] MEDS ORDERED: IBUPROFEN 600 MG TABLET ONE (18:07)
[2022-06-05] MEDS: LIDOCAINE 5% (PATCH) 1 EA PATCH TP SCH (18:11)
[2022-06-05] MEDS: CYCLOBENZAPRINE 10 MG TABLET PO ONE (18:11)
[2022-06-05] MEDS: IBUPROFEN 600 MG TABLET PO ONE (18:11)
[2022-06-05 18:54] LABS: ALBUMIN 3.8 g/dL (3.4-5.0); BILIRUBIN,DIRECT 0.2 mg/dL (0.0-0.2); BILIRUBIN,TOTAL 0.7 mg/dL (0.2-1.0); CALCIUM, SERUM 8.9 mg/dL (8.5-10.1); CREATININE 0.4 mg/dL (0.6-1.3); POTASSIUM 3.7 mmol/L (3.5-5.1); TOTAL PROTEIN, SERUM 7.2 g/dL (6.4-8.2)
--- NOTE | 2022-06-05 19:20 | NUR ---
RECEIVED REPORT FROM IOANA SAMANIEGO. PATIENT IS AAOX4. ABLE TO MAKE NEEDS KNOWN. PAIN IS RELIEVED FROM MEDS GIVEN EARLIER. VITALS CHECKED.
--- NOTE | 2022-06-05 19:20 | NUR ---
PATIENT IS AAOX4. ABLE TO MAKE NEEDS KNOWN. VITALS CHECKED
[2022-06-05] MEDS ORDERED: LIDO30AD10 TP (19:38)
[2022-06-05 20:12] LABS: LYMPHOCYTES % (MANUAL) 32 % (16-48); MONOCYTES % (MANUAL) 12 % (0-11.0); NEUTROPHILS % (MANUAL) 56 (42-76)
--- NOTE | 2022-06-05 20:26 | NUR ---
Patient discharged to home in stable condition. Written and verbal after care instructions given. Patient verbalizes understanding of instruction.
[2022-06-05 20:27] VITALS: BP 133/98
== END 2022-06-05 20:27 | disposition home or self-care (01) ==
LOC: ER 17:11
DX: M54.6 Pain in thoracic spine (principal); Z88.8 Allergy status to other drugs, medicaments and biological substances; Z79.899 Other long term (current) drug therapy
CPT/HCPCS: 36415; 71045-TC; 80048-TC; 80076-TC; 83690-TC; 84702-TC; 85025-TC

== ENCOUNTER 2022-07-02 14:49 | Inpatient (IN) | payer OTHER ==
[~2022-07-02] VITALS: Ht 160 cm; Wt 51.7 kg
[~2022-07-02 14:49] MED LIST changes: +LIDO30AD10 TP
--- NOTE | 2022-07-02 15:00 | NUR ---
UPPER QUADRANT ABDOMINAL PAIN, NAUSEA SINCE AM WORST S/P HAVING "FEW" COCKTAILS AT LUNCH PT IN BED RESTING A/O x4 Addendum: 07/02/22 at 1510 by WILLIAM PT CONNECTED TO BED SIDE MONITOR
--- NOTE | 2022-07-02 15:07 | NUR ---
ED Physician at bedside
[2022-07-02] MEDS ORDERED: KETOROLAC TROMETHAMINE INJ 30 MG/ML VIAL IV ONE (15:30)
[2022-07-02] MEDS ORDERED: IV NS 0.9% 1,000 ML BAG IV ONE (15:30)
[2022-07-02] MEDS ORDERED: ONDANSETRON HCL/PF 4 MG/2 ML VIAL IVP ONE (15:30)
[2022-07-02] MEDS ORDERED: KETOROLAC TROMETHAMINE 15 MG/ML VIAL ONE (15:45)
[2022-07-02] MEDS ORDERED: ONDANSETRON HCL/PF 4 MG/2 ML VIAL ONE (15:45)
--- NOTE | 2022-07-02 15:45 | NUR ---
20G IN LEFT FOREARM PERIPHERAL IV
[2022-07-02 15:48] LABS: BASOPHILS # (AUTO) 0.1 K/uL (0.0-0.2); BASOPHILS % (AUTO) 1.4 % (0.0-2.0); EOSINOPHILS % (AUTO) 0.8 % (0.0-6.0); HEMATOCRIT 34 % (33-45); HEMOGLOBIN 10.3 g/dL (11.5-14.8); LYMPHOCYTES # (AUTO) 1.5 K/uL (0.8-4.8); LYMPHOCYTES % (AUTO) 27.4 % (20.0-44.0); MEAN CORPUSCULAR HGB CONC 31 g/dl (31.0-36.0); MEAN CORPUSCULAR VOLUME 78 fL (82-100); MONOCYTES # (AUTO) 0.4 K/uL (0.1-1.30); NEUTROPHILS # (AUTO) 3.5 K/uL (1.8-8.9); NEUTROPHILS % (AUTO) 62.4 % (43.0-81.0); PLATELET COUNT (AUTO) 163 K/uL (150-450); RED BLOOD CELL COUNT(AUTO) 4.34 MIL/uL (4.0-5.2); WHITE BLOOD COUNT (AUTO) 5.5 K/uL (4.3-11.0)
--- NOTE | 2022-07-02 15:53 | NUR ---
URINE COLLECTED AND SENT TO LAB
[2022-07-02 15:55] LABS: BILIRUBIN,URINE NEGATIVE (NEGATIVE); COLOR,URINE YELLOW (YELLOW); LEUKOCYTE ESTERASE ,URINE NEGATIVE (NEGATIVE); NITRITE, URINE NEGATIVE (NEGATIVE); PH,URINE 6.5 (5.0-8.0); PROTEIN,URINE TRACE mg/dl (NEGATIVE); UGLUCOSE NEGATIVE (NEGATIVE); UROBILINOGEN,URINE 0.2 EU/dL (0.2)
--- NOTE | 2022-07-02 16:02 | NUR ---
US TECH AT BED SIDE
[2022-07-02 16:03] LABS: BACTERIA,URINE 1+ /HPF (None Seen); RBC,URINE 51-80 /HPF (0-2); SQUAMOUS EPITHELIAL CELL,UR 21-50 /HPF (None Seen); WBC,URINE 0-2 /HPF (0-3)
[2022-07-02] MEDS ORDERED: TRAMADOL HCL 50 MG TABLET PO ONE (16:30)
[2022-07-02] MEDS ORDERED: TRAMADOL HCL 50 MG TABLET ONE (16:33)
[2022-07-02 16:39] LABS: CALCIUM, SERUM 8.9 mg/dL (8.5-10.1); CREATININE 0.6 mg/dL (0.6-1.3); POTASSIUM 3.4 mmol/L (3.5-5.1)
--- NOTE | 2022-07-02 16:40 | NUR ---
MOVE SHEET SUBMITTED.
[2022-07-02 16:43] LABS: BILIRUBIN,DIRECT 0.1 mg/dL (0.0-0.2); BILIRUBIN,TOTAL 0.4 mg/dL (0.2-1.0)
[2022-07-02 16:44] LABS: ALBUMIN 3.6 g/dL (3.4-5.0); TOTAL PROTEIN, SERUM 7.4 g/dL (6.4-8.2)
[2022-07-02] MEDS ORDERED: HYDROMORPHONE 1 MG/1 ML DISP.SYRIN ONE (16:57)
[2022-07-02] MEDS ORDERED: HYDROMORPHONE 1 MG/1 ML DISP.SYRIN IV ONE (17:00)
--- NOTE | 2022-07-02 17:00 | NUR ---
[facility] CALLED SPA EXPERIENCE COORDINATOR PAGED.
--- NOTE | 2022-07-02 17:28 | NUR ---
COVID SWAB COLLECTED AND SENT TO LAB
[2022-07-02] MEDS ORDERED: Z GUARD REMEDY 4 OZ OINT TP PRN (17:30)
[2022-07-02] MEDS ORDERED: MAGNESIUM HYDROXIDE 30 ML UDC PO PRN (17:30)
[2022-07-02] MEDS ORDERED: MAG HYDROX/AL HYDROX/SIMETH 30 ML UDC PO PRN (17:30)
[2022-07-02] MEDS ORDERED: ACETAMINOPHEN 325 MG TABLET PO PRN (17:30)
--- NOTE | 2022-07-02 18:13 | NUR ---
GOT BED 314-1 ADMITTING NOTIFIED.
--- NOTE | 2022-07-02 18:30 | NUR ---
report given to yael coelho for adrian
--- NOTE | 2022-07-02 18:55 | NUR ---
patient being taken to room my EMT Med Surg Status
--- NOTE | 2022-07-02 19:30 | NUR ---
MS FORM CARPENTER NOTES RECEIVED PATIENT VIA GURNEY FROM ER AT 1915. PATIENT IS A/O TIMES 4. ABLE TO MAKE NEEDS KNOWN. NO PAIN NOTED. NO SOB NOTED. NO DISTRESS NOTED. IV ACCESS ON THE LFA g # 20 INTACT AND RUNNING NS AT 100 ML/HR. OVERALL SKIN INTACT. EDUCATE THE PATIENT ABOUT THE USE OF CALL LIGHT. PATIENT VERBALIZED UNDERSTANDING. WILL MONITOR FOR PAIN, NAUSEA AND VOMITING.ALL SAFETY MEASURES IN PLACE. BED LOCKED IN THE LOWEST POSITION. CALL LIGHT AND TABLE IN EASY REACH. SIDE RAIL UP TIMES 2. WILL CONTINUE TO [id number].
[2022-07-02] MEDS: ONDANSETRON HCL/PF 4 MG/2 ML VIAL IVP PRN (19:38)
[2022-07-02] MEDS: IV NS 0.9% 1,000 ML IV SCH (19:39)
[2022-07-02 20:00] VITALS: BP 138/86
--- NOTE | 2022-07-02 20:08 | NUR ---
RN NOTES NEW ORDER OF DILAUDID 0.5 MG IV Q 6 HOURS PRN RECEIVED FROM TL LIM.PATIENT STATES " MORPHINE IS NOT EFFECTIVE FOR HER PAIN" INFORMED TL LIM.
[2022-07-02] MEDS: HYDROMORPHONE 1 MG/1 ML DISP.SYRIN IV PRN ×2 (20:24→20:59)
--- NOTE | 2022-07-02 20:59 | NUR ---
RN NOTES DILAUDID 0.5 ML PRN GIVEN FOR ABDOMINAL PAIN 02/15 AT 2058. THE ASSESSMENT PART OF THE PAIN MEDICATION WAS FROZEN ON THE COMPUTER AND THERE WAS 2 PAGE OPEN, ACCIDENTALLY DOCUMENTED 2 TIMES. INFORMED CHARGE NURSE KIRK. WILL GO TO THE PHARMACY TOMORROW MORNING TO CHECK THE DOCUMENTATION FOR THE MEDICATION.
[2022-07-02] MEDS ORDERED: CHLORDIAZEPOXIDE HCL 25 MG CAPSULE PO SCH (21:00)
[2022-07-02] MEDS: CHLORDIAZEPOXIDE HCL 5 MG CAPSULE PO SCH (22:19)
[2022-07-03] MEDS: MORPHINE SULFATE INJ 2 MG/ML DISP.SYRIN IV PRN ×2 (00:09→08:36)
[2022-07-03] MEDS: HYDROMORPHONE 1 MG/1 ML DISP.SYRIN IV PRN ×5 (03:42→20:20)
[2022-07-03] MEDS: IV NS 0.9% 1,000 ML IV SCH ×3 (03:49→23:32)
[2022-07-03] MEDS: CHLORDIAZEPOXIDE HCL 5 MG CAPSULE PO SCH ×3 (05:38→21:15)
[2022-07-03 06:17] LABS: BASOPHILS % (AUTO) 0.8 % (0.0-2.0); EOSINOPHILS % (AUTO) 1.6 % (0.0-6.0); HEMATOCRIT 30 % (33-45); HEMOGLOBIN 9.1 g/dL (11.5-14.8); LYMPHOCYTES # (AUTO) 1.2 K/uL (0.8-4.8); LYMPHOCYTES % (AUTO) 25.9 % (20.0-44.0); MEAN CORPUSCULAR HGB CONC 31 g/dl (31.0-36.0); MEAN CORPUSCULAR VOLUME 79 fL (82-100); MONOCYTES # (AUTO) 0.5 K/uL (0.1-1.30); MONOCYTES % (AUTO) 11.9 % (2.0-12.0); NEUTROPHILS # (AUTO) 2.8 K/uL (1.8-8.9); NEUTROPHILS % (AUTO) 59.8 % (43.0-81.0); PLATELET COUNT (AUTO) 132 K/uL (150-450); RED BLOOD CELL COUNT(AUTO) 3.76 MIL/uL (4.0-5.2); WHITE BLOOD COUNT (AUTO) 4.6 K/uL (4.3-11.0)
--- NOTE | 2022-07-03 06:33 | NUR ---
MS RN CLOSING NOTES PATIENT RESTING ON HER BED. PATIENT IS A/O TIMES 4. ABLE TO MAKE NEEDS KNOWN. NO PAIN NOTED AT THIS TIME. NO SOB NOTED. NO DISTRESS NOTED. IV ACCESS ON THE LFA g # 20 INTACT AND RUNNING NS AT 100 ML/HR. OVERALL SKIN INTACT. EDUCATE THE PATIENT ABOUT THE USE OF CALL LIGHT. PATIENT VERBALIZED UNDERSTANDING. ALL DUE MEDS GIVEN ORDERED. PAIN, NAUSEA AND VOMITING MANAGED DURING SHIFT. PATIENT AMBULATORY AND USING RESTROOM.ALL SAFETY MEASURES IN PLACE. BED LOCKED IN THE LOWEST POSITION. CALL LIGHT AND TABLE IN EASY REACH. SIDE RAIL UP TIMES 2. ALL BELONGINGS ACCOUNTED AND SIGNED FOR.WILL ENDORSE FOR IRON.
--- NOTE | 2022-07-03 07:25 | NUR ---
MS RN OPENING NOTES RECEIVED PATIENT IN BED AWAKE, A/O TIMES 4. ABLE TO MAKE NEEDS KNOWN, NO C/O OR DISCOMFORTS AT THIS TIME. ON ROOM AIR, TOLERATING WELL, BREATHING EVEN AND UNLABORED. IV ACCESS ON THE LFA G# 20 INTACT WITH IVF OF NS AT 100 ML/HR INFUSING WELL, NO S/S OF INFILTRATIONS AT SITE NOTED. ALL SAFETY MEASURES IN PLACE: BED IN THE LOWEST LOCKED POSITION, SIDE-RAILS UP X2, CALL LIGHT AND TRAY TABLE W/ IN EASY REACH. WILL CONTINUE TO MONITOR PT ACCORDINGLY.
[2022-07-03 07:56] LABS: CALCIUM, SERUM 8.6 mg/dL (8.5-10.1); CREATININE 0.5 mg/dL (0.6-1.3)
[2022-07-03 08:00] VITALS: BP 135/84
[2022-07-03 08:05] LABS: ALBUMIN 2.9 g/dL (3.4-5.0); BILIRUBIN,DIRECT 0.1 mg/dL (0.0-0.2); BILIRUBIN,TOTAL 0.5 mg/dL (0.2-1.0); MAGNESIUM 1.9 mg/dL (1.8-2.4); PHOSPHORUS 3.9 mg/dL (2.5-4.9)
[2022-07-03 08:33] VITALS: BP 135/84
--- NOTE | 2022-07-03 08:39 | NUR ---
RN NOTES PT GRIMACING IN PAIN AND VERBALIZED THAT SHE HAD 10/10 PAIN SCALE ON WHOLE ABDOMEN, PRN MORPHINE 2 MG/ML ADMINISTERED AT 0831. WILL CONTINUE TO MONITOR AND REASSESS PT.
--- NOTE | 2022-07-03 12:22 | NUR ---
RN NOTES PT NOTED CRYING AND GRIMACING IN PAIN, VERBALIZED THAT SHE HAD 10/10 PAIN SCALE ON WHOLE ABDOMEN, PRN DILAUDID 1 MG/ML ADMINISTERED AT 1215. WILL CONTINUE TO MONITOR AND REASSESS PT.
[2022-07-03 16:21] VITALS: BP 149/91
--- NOTE | 2022-07-03 16:21 | NUR ---
RN NOTES PT C/O ABDOMINAL PAIN, 10/10 PAIN SCALE, PRN DILAUDID 1 MG/ML ADMINISTERED AT 1618. WILL CONTINUE TO MONITOR AND REASSESS PT.
[2022-07-03] MEDS: LORAZEPAM INJ 2 MG/ML VIAL IV PRN ×2 (16:29→23:09)
--- NOTE | 2022-07-03 16:32 | NUR ---
RN NOTES PT VERBALIZED THAT SHE'S ANXIOUS AND REQUESTED FOR ATIVAN. PRN ATIVAN 0.5MG/0.25ML IVP ADMINISTERED AT 1629.
--- NOTE | 2022-07-03 18:39 | NUR ---
MS RN CLOSING NOTES PATIENT IN BED RESTING WITH PARTNER AT BEDSIDE. A/O TIMES 4. ABLE TO MAKE NEEDS KNOWN. AMBULATORY WITH STEADY GAIT. ON ROOM AIR, TOLERATING WELL, BREATHING EVEN AND UNLABORED, NO SOB NOTED. IV ACCESS ON THE LFA G# 20 INTACT WITH IVF OF NS @ 100 ML/HR INFUSING WELL, NO S/S OF INFILTRATIONS AT SITE NOTED. ALL NEEDS/ CARE ATTENDED WELL. ALL SAFETY MEASURES IN PLACE: BED IN THE LOWEST LOCKED POSITION, SIDE-RAILS UP X2, CALL LIGHT AND TRAY TABLE W/ IN EASY REACH. WILL ENDORSE IRON TO TRUST VAULT CLERK NURSE.
--- NOTE | 2022-07-03 19:30 | NUR ---
MS RN NOTES PATIENT IN BED. A/OX 4. ABLE TO MAKE NEEDS KNOWN. AMBULATORY WITH STEADY GAIT. ON ROOM AIR, TOLERATING WELL, BREATHING EVEN AND UNLABORED, NO SOB NOTED. IV ACCESS ON THE LFA G# 20 INTACT WITH IVF OF NS @ 100 ML/HR INFUSING WELL, NO S/S OF INFILTRATIONS AT SITE NOTED. ALL NEEDS/ CARE ATTENDED WELL. ALL SAFETY MEASURES IN PLACE: BED IN THE LOWEST LOCKED POSITION, SIDE-RAILS UP X2, CALL LIGHT AND TRAY TABLE W/ IN EASY REACH.
[2022-07-03] MEDS: ONDANSETRON HCL/PF 4 MG/2 ML VIAL IVP PRN (20:28)
--- NOTE | 2022-07-03 20:31 | NUR ---
RN NOTE PT REQUESTED PRN DILAUDID FOR 9/10 PAIN AND ZOFRAN EMESIS X1 NOTED BOTH ADMINISTERED AND TOLERATED WELL.
[2022-07-03 20:41] VITALS: BP 157/100
--- NOTE | 2022-07-03 23:14 | NUR ---
RN NOTE PRN ATIVAN GIVEN FOR ANXIETY TOLERATED WELL.
[2022-07-04] MEDS: HYDROMORPHONE 1 MG/1 ML DISP.SYRIN IV PRN ×7 (00:22→20:51)
--- NOTE | 2022-07-04 00:26 | NUR ---
rn note prn Dilaudid given for pain 9/10 on a numeric pains scale noted pt anticipated time for medication and calls 10 -15 mins before med can be given again.
--- NOTE | 2022-07-04 04:23 | NUR ---
RN NOTE PT DILAUDID GIVEN FOR 91/10 PAIN TOLERATED WELL.
[2022-07-04] MEDS: CHLORDIAZEPOXIDE HCL 5 MG CAPSULE PO SCH ×3 (05:44→22:25)
--- NOTE | 2022-07-04 06:39 | NUR ---
MS RN NOTES PATIENT IN BED. A/OX 4. ABLE TO MAKE NEEDS KNOWN. AMBULATORY WITH STEADY GAIT. ON ROOM AIR, TOLERATING WELL, BREATHING EVEN AND UNLABORED, NO SOB NOTED. IV ACCESS ON THE LFA G# 20 INTACT WITH IVF OF NS @100 ML/HR INFUSING WELL, NO S/S OF INFILTRATIONS AT SITE NOTED. ALL NEEDS/ CARE ATTENDED WELL. PAIN MANAGEMENT PROVIDED NEEDED. PT HAD ONLY ONE EPISODE OF EMESIS DURING SHIFT ALEXANDRE SNOT REPORT ANY NAUSEA AT THIS TIME. ALL SAFETY MEASURES IN PLACE: BED IN THE LOWEST LOCKED POSITION, SIDE-RAILS UP X2, CALL LIGHT AND TRAY TABLE W/ IN EASY REACH. WILL ENDORSE CARE TO DAY SHIFT NURSE.
[2022-07-04] MEDS: LORAZEPAM INJ 2 MG/ML VIAL IV PRN (07:17)
--- NOTE | 2022-07-04 07:29 | NUR ---
MS RN OPENING NOTES RECEIVED PT IN BED AWAKE, A/O TIMES 4. ABLE TO MAKE NEEDS KNOWN. PT VERBALIZES THAT SHE IS ANXIOUS AND WANTS TO HAVE HER ATIVAN. ATIVAN 0.5MG/0.25ML IV PRN GIVEN AT 0717. NO C/O PAIN AT THIS TIME. ON ROOM AIR, TOLERATING WELL, BREATHING EVEN AND UNLABORED. IV ACCESS ON THE LFA G# 20 INTACT WITH IVF OF NS AT 100 ML/HR INFUSING WELL, NO S/S OF INFILTRATIONS AT SITE NOTED. PT WAS SEEN BY DR. REYES TODAY AND ORDERED TO CHANGE DILAUDID 1MG IV Q 4HRS PRN TO DILAUDID 1MG IV Q 3HRS FOR PAIN. ALL SAFETY MEASURES IN PLACE: BED IN THE LOWEST LOCKED POSITION, SIDE-RAILS UP X2, CALL LIGHT AND TRAY TABLE W/ IN EASY REACH. WILL CONTINUE TO MONITOR PT ACCORDINGLY.
[2022-07-04 08:05] VITALS: BP 139/90
--- NOTE | 2022-07-04 08:35 | NUR ---
RN NOTES PT GRIMACING IN PAIN AND VERBALIZED THAT SHE HAD 9/10 PAIN SCALE ON WHOLE ABDOMEN, PRN DILAUDID 1MG/ML ADMINISTERED AT 0830. WILL CONTINUE TO MONITOR AND REASSESS PT.
[2022-07-04 09:01] LABS: BASOPHILS % (AUTO) 0.3 % (0.0-2.0); EOSINOPHILS % (AUTO) 0.1 % (0.0-6.0); HEMATOCRIT 36 % (33-45); HEMOGLOBIN 10.8 g/dL (11.5-14.8); LYMPHOCYTES # (AUTO) 0.9 K/uL (0.8-4.8); LYMPHOCYTES % (AUTO) 10.4 % (20.0-44.0); MEAN CORPUSCULAR HGB CONC 30 g/dl (31.0-36.0); MEAN CORPUSCULAR VOLUME 80 fL (82-100); MONOCYTES # (AUTO) 0.6 K/uL (0.1-1.30); MONOCYTES % (AUTO) 7.4 % (2.0-12.0); NEUTROPHILS # (AUTO) 6.8 K/uL (1.8-8.9); NEUTROPHILS % (AUTO) 81.8 % (43.0-81.0); PLATELET COUNT (AUTO) 147 K/uL (150-450); RED BLOOD CELL COUNT(AUTO) 4.49 MIL/uL (4.0-5.2); WHITE BLOOD COUNT (AUTO) 8.3 K/uL (4.3-11.0)
[2022-07-04 09:09] LABS: CALCIUM, SERUM 8.7 mg/dL (8.5-10.1); CREATININE 0.4 mg/dL (0.6-1.3); MAGNESIUM 1.6 mg/dL (1.8-2.4); PHOSPHORUS 3.6 mg/dL (2.5-4.9); POTASSIUM 3.9 mmol/L (3.5-5.1)
[2022-07-04 09:35] LABS: BILIRUBIN,DIRECT 0.2 mg/dL (0.0-0.2); BILIRUBIN,TOTAL 0.6 mg/dL (0.2-1.0); TOTAL PROTEIN, SERUM 6.4 g/dL (6.4-8.2)
[2022-07-04] MEDS: IV NS 0.9% 1,000 ML IV PRN (14:43)
[2022-07-04] MEDS: Magnesium 1GM/D5W 100ML PREMIX 100 ML IV SCH ×2 (14:51→15:59)
[2022-07-04 16:20] VITALS: BP 114/80
--- NOTE | 2022-07-04 18:40 | NUR ---
MS RN CLOSING NOTES PATIENT IN BED RESTING WITH PARTNER AT BEDSIDE. A/O TIMES 4. ABLE TO MAKE NEEDS KNOWN. AMBULATORY WITH STEADY GAIT. ON ROOM AIR, TOLERATING WELL, BREATHING EVEN AND UNLABORED, NO SOB NOTED. IV ACCESS ON THE LFA G# 20 INTACT WITH IVF OF NS @ 100 ML/HR INFUSING WELL, NO S/S OF INFILTRATIONS AT SITE NOTED. ALL NEEDS ATTENDED. SAFETY MEASURES IN PLACE: BED IN THE LOWEST LOCKED POSITION, SIDE-RAILS UP X2, CALL LIGHT AND TRAY TABLE W/ IN EASY REACH. WILL ENDORSE IRON TO ACCESS LEAD NURSE.
--- NOTE | 2022-07-04 19:11 | NUR ---
MS RN OPENING NOTES PATIENT IN BED RESTING WITH PARTNER AT BEDSIDE. A/O TIMES 4. ABLE TO MAKE NEEDS KNOWN. AMBULATORY WITH STEADY GAIT. ON ROOM AIR, TOLERATING WELL, BREATHING EVEN AND UNLABORED, NO SOB NOTED. IV ACCESS ON THE LFA G# 20 INTACT WITH IVF OF NS @ 100 ML/HR INFUSING WELL, NO S/S OF INFILTRATIONS AT SITE NOTED. ALL NEEDS ATTENDED. SAFETY MEASURES IN PLACE: BED IN THE LOWEST LOCKED POSITION, SIDE-RAILS UP X2, CALL LIGHT AND TRAY TABLE W/ IN EASY REACH.
[2022-07-04 20:00] VITALS: BP 113/74
--- NOTE | 2022-07-04 20:58 | NUR ---
RN NOTE PRN DILAUDID GIVEN FOR 9/10 PAIN TOLERATED WELL.
[2022-07-05] MEDS: HYDROMORPHONE 1 MG/1 ML DISP.SYRIN IV PRN ×8 (00:09→23:44)
--- NOTE | 2022-07-05 00:14 | NUR ---
RN NOTE PRN DILAUDID GIVEN FOR PAIN 9/10 ON A NUMERIC PAIN SCALE TOLERATED WELL.
--- NOTE | 2022-07-05 03:30 | NUR ---
RN NOTE PRN DILAUDID GIVEN FOR 9/10 PAIN RAFAT NUMERIC PAIN SCALE
[2022-07-05] MEDS: IV NS 0.9% 1,000 ML IV PRN ×2 (05:08→15:56)
[2022-07-05] MEDS: CHLORDIAZEPOXIDE HCL 5 MG CAPSULE PO SCH ×3 (05:08→20:38)
--- NOTE | 2022-07-05 07:00 | NUR ---
MS RN CLOSING NOTES PATIENT IN BED RESTING. ASLEEP AT THIS TIME NO NOTED PAIN AT THIS TIME.A/O TIMES 4. ABLE TO MAKE NEEDS KNOWN. AMBULATORY WITH STEADY GAIT. ON ROOM AIR, TOLERATING WELL, BREATHING EVEN AND UNLABORED, NO SOB NOTED. IV ACCESS ON THE LFA G# 20 INTACT WITH IVF OF NS @ 100 ML/HR INFUSING WELL, NO S/S OF INFILTRATIONS AT SITE NOTED. ALL NEEDS ATTENDED. SAFETY MEASURES IN PLACE: BED IN THE LOWEST LOCKED POSITION, SIDE-RAILS UP X2, CALL LIGHT AND TRAY TABLE W/ IN EASY REACH. WILL ENDORSE CARE TO DAY SHIFT NURSE.
[2022-07-05 07:12] LABS: BASOPHILS % (AUTO) 0.6 % (0.0-2.0); EOSINOPHILS % (AUTO) 1.8 % (0.0-6.0); HEMATOCRIT 33 % (33-45); HEMOGLOBIN 10.1 g/dL (11.5-14.8); LYMPHOCYTES % (AUTO) 14.3 % (20.0-44.0); MEAN CORPUSCULAR HGB CONC 31 g/dl (31.0-36.0); MEAN CORPUSCULAR VOLUME 79 fL (82-100); MONOCYTES # (AUTO) 0.9 K/uL (0.1-1.30); MONOCYTES % (AUTO) 13.7 % (2.0-12.0); NEUTROPHILS # (AUTO) 4.7 K/uL (1.8-8.9); NEUTROPHILS % (AUTO) 69.6 % (43.0-81.0); PLATELET COUNT (AUTO) 147 K/uL (150-450); RED BLOOD CELL COUNT(AUTO) 4.15 MIL/uL (4.0-5.2); WHITE BLOOD COUNT (AUTO) 6.7 K/uL (4.3-11.0)
--- NOTE | 2022-07-05 07:15 | NUR ---
MS CENTRIFUGAL CHILLER TECHNICIAN OPENING NOTES Received patient in bed, alert and oriented x4. Patient is verbal and ambulatory. Patient is on room air, tolerating well. No SOB noted, Patient has IV access on the LFA G#20 intact with IVF of NS @ 100ML/HR infusing well. No infiltrations on site noted. Safety measures in place, bed in lowest locked position, side rails up x2, call light within reach, tray table within reach, will continue to monitor.
[2022-07-05 07:23] LABS: CALCIUM, SERUM 8.4 mg/dL (8.5-10.1); CREATININE 0.3 mg/dL (0.6-1.3); PHOSPHORUS 2.6 mg/dL (2.5-4.9); POTASSIUM 3.2 mmol/L (3.5-5.1)
[2022-07-05 07:40] LABS: ALBUMIN 2.5 g/dL (3.4-5.0); BILIRUBIN,DIRECT 0.2 mg/dL (0.0-0.2); BILIRUBIN,TOTAL 0.5 mg/dL (0.2-1.0); TOTAL PROTEIN, SERUM 5.8 g/dL (6.4-8.2)
[2022-07-05 08:00] VITALS: BP 114/77
--- NOTE | 2022-07-05 08:09 | NUR ---
RN NOTES ADMINISTERED PRN DILAUDID FOR AUTO OVERHAULER SHEREE, FOR PAIN 02/15.
[2022-07-05] MEDS ORDERED: POTASSIUM CL. PREMIX PERIPHER. 50 ML IV SCH (08:30)
[2022-07-05] MEDS: POTASSIUM CHLORIDE 20 MEQ POWDER PACKET PO SCH ×2 (08:54→09:46)
--- NOTE | 2022-07-05 11:08 | NUR ---
RN NOTES ADMINISTERED PRN DILAUDID FOR RADIOSONDE SPECIALIST SHEREE, FOR PAIN 01/15.
--- NOTE | 2022-07-05 14:37 | NUR ---
RN NOTES ADMINISTERED PRN DILAUDID FOR ELECTROCARDIOGRAPH TECHNICIAN SHEREE, FOR PAIN 01/15.
[2022-07-05 16:00] VITALS: BP 119/76
--- NOTE | 2022-07-05 18:26 | NUR ---
MS FARMER AND GRAZIER CLOSING NOTES Patient in bed, alert and oriented x4. Patient is verbal and ambulatory. Patient is on room air, tolerating well. No SOB noted, Patient has IV access on the LFA G#20 intact with IVF of NS @ 100ML/HR infusing well. No infiltrations on site noted. Safety measures in place, bed in lowest locked position, side rails up x2, call light within reach, tray table within reach, will endorse to slot shift manager nurse.
--- NOTE | 2022-07-05 19:16 | NUR ---
RN OPENING NOTE; Received Patient in bed, alert and oriented x4.able to make needs known,sachin wellomrm air,satting 99% No Sob/distress noted,IV access on the LFA G#20 intact with IVF of NS @ 100ML/HR infusing well.Safety measures in place, bed in lowest locked position, side rails up x2, call light within reach,Will continue to monitor.
[2022-07-05 20:00] VITALS: BP 122/82
--- NOTE | 2022-07-05 20:45 | NUR ---
RN NOTE; PT COMPLAINED OF RT UPPER ABD 02/15,PRN DILAUDID 1MG WAS GIVEN,NO A/R NOTED.
--- NOTE | 2022-07-05 23:40 | NUR ---
RN NOTE; PT COMPLAINED OF RT UPPER ABD 02/15,PRN DILAUDID 1MG WAS GIVEN,NO A/R NOTED.
[2022-07-06] MEDS: HYDROMORPHONE 1 MG/1 ML DISP.SYRIN IV PRN ×7 (03:17→23:12)
--- NOTE | 2022-07-06 03:22 | NUR ---
RN NOTE; PT COMPLAINED OF RT UPPER ABD 02/15,PRN DILAUDID 1MG WAS GIVEN,NO A/R NOTED.
[2022-07-06] MEDS: IV NS 0.9% 1,000 ML IV PRN (04:35)
[2022-07-06] MEDS: CHLORDIAZEPOXIDE HCL 5 MG CAPSULE PO SCH (05:00)
[2022-07-06 06:29] LABS: BASOPHILS # (AUTO) 0.1 K/uL (0.0-0.2); BASOPHILS % (AUTO) 1.2 % (0.0-2.0); EOSINOPHILS % (AUTO) 3.6 % (0.0-6.0); HEMATOCRIT 31 % (33-45); HEMOGLOBIN 9.6 g/dL (11.5-14.8); LYMPHOCYTES % (AUTO) 20.3 % (20.0-44.0); MEAN CORPUSCULAR HGB CONC 31 g/dl (31.0-36.0); MEAN CORPUSCULAR VOLUME 79 fL (82-100); MONOCYTES # (AUTO) 0.8 K/uL (0.1-1.30); MONOCYTES % (AUTO) 15.4 % (2.0-12.0); NEUTROPHILS # (AUTO) 2.9 K/uL (1.8-8.9); NEUTROPHILS % (AUTO) 59.5 % (43.0-81.0); PLATELET COUNT (AUTO) 159 K/uL (150-450); RED BLOOD CELL COUNT(AUTO) 3.92 MIL/uL (4.0-5.2)
--- NOTE | 2022-07-06 06:31 | NUR ---
RN CLOSING NOTE;314 Patient in bed, alert and oriented x4.able to make needs known,sachin well on rm air,satting 98.7% No Sob/distress noted,IV access on the LFA G#20 intact with IVF of NS @ 100ML/HR infusing well.due meds given as order,all needs attended,PT very needy and meds seecker,Safety measures in place, bed in lowest locked position, side rails up x2, call light within reach,Will endorsed to next shift.
[2022-07-06 06:43] LABS: ALBUMIN 2.4 g/dL (3.4-5.0); BILIRUBIN,DIRECT 0.1 mg/dL (0.0-0.2); BILIRUBIN,TOTAL 0.4 mg/dL (0.2-1.0); TOTAL PROTEIN, SERUM 5.7 g/dL (6.4-8.2)
[2022-07-06 06:46] LABS: CALCIUM, SERUM 8.4 mg/dL (8.5-10.1); CREATININE 0.3 mg/dL (0.6-1.3)
[2022-07-06 07:00] VITALS: BP 127/90
--- NOTE | 2022-07-06 07:30 | NUR ---
MS RN OPENING NOTES: RECEIVED PT AWAKE, A/O X 4, ABLE TO MAKE NEEDS KNOWN. AMBULATORY WITH STEADY GAIT. ON ROOM AIR, TOLERATING WELL, BREATHING EVEN AND UNLABORED, NO SOB NOTED. PT C/O OF PAIN 02/15, PT STATES SHE "IS LATE 40 MINS" FOR HER PAIN MEDS, WILL MEDICATE ORDERED. IV ACCESS ON THE LFA G# 20 INTACT, NS @ 100 ML/HR ON PAUSE AT THE MOMENT PER PT REQUEST. NO S/S OF INFILTRATIONS AT SITE NOTED. SAFETY MEASURES IN PLACE: BED IN THE LOWEST LOCKED POSITION, SIDE-RAILS UP X2, CALL LIGHT AND TRAY TABLE W/ IN EASY REACH, WILL CONT WITH PLAN OF CARE DURING SHIFT.
[2022-07-06] MEDS: POTASSIUM CHLORIDE 20 MEQ TAB.PRT.SR PO ONE ×2 (08:52→09:00)
[2022-07-06 09:00] LABS: BASOPHILS % (MANUAL) 1 % (0.0-2.0); EOSINOPHILS % (MANUAL) 3 % (0-4); LYMPHOCYTES % (MANUAL) 23 % (16-48); MONOCYTES % (MANUAL) 11 % (0-11.0); NEUTROPHILS % (MANUAL) 62 (42-76)
[2022-07-06] MEDS ORDERED: POTASSIUM CHLORIDE 20 MEQ POWDER PACKET PO SCH (11:30)
--- NOTE | 2022-07-06 14:00 | NUR ---
MS RN NOTES: REINSERTED NEW IV ACCESS AT L AC# 22, REMOVED L FA #20 IV ACCESS DUE TO S/S OF INFILTRATION, GAVE PT ICE PACK FOR FOREARM REDNESS.
[2022-07-06 16:00] VITALS: BP 108/68
--- NOTE | 2022-07-06 17:39 | NUR ---
MS RN NOTES: PT ATE 1/4 OF TURKEY SANDWICH, PT STATES " I FEEL NAUSEATED, MY STOMACH DOESN'T FEEL OK, MAYBE BECAUSE THIS IS MY FIRST TIME EATING SOLID FOOD IN 4 DAYS" RN MADE MD AWARE, WILL MEDICATE FOR NAUSEA PER ORDER.
--- NOTE | 2022-07-06 18:59 | NUR ---
MS TRIPLETT NOTES: PT ASLEEP EASILY ROUSED, A/O X 4, ABLE TO MAKE NEEDS KNOWN. AMBULATORY WITH STEADY GAIT. ON ROOM AIR, TOLERATING WELL, BREATHING EVEN AND UNLABORED, NO S/S OF SOB NOTED. PT PAIN LEVEL IS AT 2-3/10 AT THIS TIME. IV ACCESS ON THE L AC #22 INTACT, NS @ 100 ML/HR ON PAUSE AT THE MOMENT PER PT REQUEST. NO S/S OF INFILTRATIONS AT SITE NOTED. SAFETY MEASURES IN PLACE: BED IN THE LOWEST LOCKED POSITION, SIDE-RAILS UP X2, CALL LIGHT AND TRAY TABLE W/ IN EASY REACH, WILL ENDORSE TO PM SHIFT Addendum: 07/06/22 at 1900 by MASSIEL AMEZQUITA RN CLOSING NOTES:
--- NOTE | 2022-07-06 19:15 | NUR ---
MS RN OPENING NOTES RECEIVED PT AWAKE IN BED, A/O X 4, ABLE TO MAKE NEEDS KNOWN. AMBULATORY WITH STEADY GAIT. ON ROOM AIR, TOLERATING WELL, BREATHING EVEN AND UNLABORED, NO S/S OF SOB NOTED. C/O OF DISCOMFORT IN ABDOMEN AFTER DINNER BUT STATES THAT IT WAS HER FIRST REAL MEAL IN A WHILE. NOTIFIED BY DAY SHIFT NURSE. IV ACCESS ON THE LAC #22 INTACT, NS @ 100 ML/HR ON PAUSE AT THE MOMENT PER PT REQUEST, BUT WILL RESUME AT 2000 PER PT REQUEST. NO S/S OF INFILTRATIONS AT SITE NOTED. SAFETY MEASURES IN PLACE: BED IN THE LOWEST LOCKED POSITION, SIDE-RAILS UP X2, CALL LIGHT AND TRAY TABLE W/ IN EASY REACH. WILL CONTINUE TO MONITOR AND ASSIST.
[2022-07-06 20:00] VITALS: BP 114/76
--- NOTE | 2022-07-06 20:00 | NUR ---
RN NOTES PT OFFERED NAUSEA MEDICATION BUT REFUSED. STATES THAT IT IS STILL MANAGEABLE AND WANTED TO SEE IF SHE CAN TOLERATE. VERBALIZED THAT SHE WILL LET ME KNOW IF SHE NEEDS IT. WILL MONITOR PT.
--- NOTE | 2022-07-06 23:00 | NUR ---
RN NOTES PT REQUESTS PRN ZOFRAN FOR NAUSEA. WILL ADMINISTER ORDERED. WILL CONTINUE TO MONITOR PT.
[2022-07-06] MEDS: ONDANSETRON HCL/PF 4 MG/2 ML VIAL IVP PRN (23:14)
[2022-07-07] MEDS: HYDROMORPHONE 1 MG/1 ML DISP.SYRIN IV PRN ×7 (02:59→22:49)
[2022-07-07] MEDS: IV NS 0.9% 1,000 ML IV PRN ×2 (03:04→12:21)
--- NOTE | 2022-07-07 07:00 | NUR ---
MS RN CLOSING NOTES PT AWAKE IN BED, A/O X 4, ABLE TO MAKE NEEDS KNOWN. AMBULATORY WITH STEADY GAIT. STABLE ON ROOM AIR, TOLERATING WELL, BREATHING EVEN AND UNLABORED, NO S/S OF SOB NOTED. IV ACCESS ON THE LAC #22 INTACT, NS @ 100 ML/HR. PAIN MANAGEMENT REQUESWTED Q3HR. ALL CARE PROVIDED AND MEDS TOLERATED WELL. SAFETY MEASURES IN PLACE: BED IN THE LOWEST LOCKED POSITION, SIDE-RAILS UP X2, CALL LIGHT AND TRAY TABLE W/ IN EASY REACH. WILL ENDORSE IRON TO DAY SHIFT NURSE.
--- NOTE | 2022-07-07 07:29 | NUR ---
RN OPENING NOTES RECEIVED PATIENT IN BED. CONSCIOUS AND COHERENT. ABLE TO VERBALIZED CONCERNS. ON ROOM AIR. BREATH SOUNDS CLEAR. WITH ACTIVE BOWEL SOUNDS. NO COMPLAINS OF PAIN AND SHORTNESS OF BREATH AT THIS TIME. WITH IV ACCESS AT LAC #22 WITH ONGOING NS @100ML/, PATENT AND INTACT. SAFETY MEASURES MAINTAIN. SIDE RAILS UP X 2. KEPT BED AT LOWER LOCKED POSITION. KEPT CALL LIGHT WITHIN REACH. WILL CONTINUE TO MONITOR FOR NAUSEA AND VOMITING AND OTHER POSSIBLE PROBLEMS
[2022-07-07 07:37] LABS: BASOPHILS # (AUTO) 0.1 K/uL (0.0-0.2); BASOPHILS % (AUTO) 2.8 % (0.0-2.0); EOSINOPHILS % (AUTO) 4.8 % (0.0-6.0); HEMATOCRIT 29 % (33-45); HEMOGLOBIN 9.2 g/dL (11.5-14.8); LYMPHOCYTES % (AUTO) 30.2 % (20.0-44.0); MEAN CORPUSCULAR HGB CONC 31 g/dl (31.0-36.0); MEAN CORPUSCULAR VOLUME 79 fL (82-100); MONOCYTES # (AUTO) 0.6 K/uL (0.1-1.30); MONOCYTES % (AUTO) 18.9 % (2.0-12.0); NEUTROPHILS # (AUTO) 1.4 K/uL (1.8-8.9); NEUTROPHILS % (AUTO) 43.3 % (43.0-81.0); PLATELET COUNT (AUTO) 198 K/uL (150-450); RED BLOOD CELL COUNT(AUTO) 3.71 MIL/uL (4.0-5.2); WHITE BLOOD COUNT (AUTO) 3.3 K/uL (4.3-11.0)
[2022-07-07 07:46] LABS: ALBUMIN 2.5 g/dL (3.4-5.0); BILIRUBIN,DIRECT 0.1 mg/dL (0.0-0.2); BILIRUBIN,TOTAL 0.4 mg/dL (0.2-1.0); CALCIUM, SERUM 8.6 mg/dL (8.5-10.1); CREATININE 0.4 mg/dL (0.6-1.3); MAGNESIUM 1.8 mg/dL (1.8-2.4); PHOSPHORUS 3.4 mg/dL (2.5-4.9); POTASSIUM 3.6 mmol/L (3.5-5.1); TOTAL PROTEIN, SERUM 5.8 g/dL (6.4-8.2)
[2022-07-07 08:00] VITALS: BP 119/82
[2022-07-07] MEDS: ONDANSETRON HCL/PF 4 MG/2 ML VIAL IVP PRN ×3 (08:33→21:17)
[2022-07-07 09:12] LABS: EOSINOPHILS % (MANUAL) 6 % (0-4); LYMPHOCYTES % (MANUAL) 32 % (16-48); MONOCYTES % (MANUAL) 14 % (0-11.0); NEUTROPHILS % (MANUAL) 48 (42-76)
[2022-07-07 10:22] VITALS: BP 119/82
[2022-07-07] MEDS: ENSURE CLEAR 237 ML LIQUID (MIX BERRY) PO SCH (14:53)
[2022-07-07 16:00] VITALS: BP 129/79
--- NOTE | 2022-07-07 18:32 | NUR ---
RN CLOSING NOTES PATIENT IN BED, AWAKE. ABLE TO VERBALIZED NEEDS. WITH IV ACCESS AT LAC #22G, WITH ONGOING NS AT 100ML/HR INFUSING WELL. NO PAIN AT THIS TIME. NO EPISODES OF SHORTNESS FOR BREATH AT THIS TIME. MONITOR FOR NAUSEA AND VOMITING. SAFETY MEASURED MAINTAINED. KEPT BED ON LOWERED LOCKED POSITION. KEPT SIDE RAILS UP X 2. ALL DUE MEDICATIONS GIVEN. ALL NEEDS MET.KEPT PATIENT WARM AND COMFORTABLE. WILL ENDORSE TO ROCK WOOL INSULATOR FOR IRON.
--- NOTE | 2022-07-07 19:00 | NUR ---
MS RN OPENING NOTES PATIENT IS SITTING IN BED USING HER LAPTOP. SHE IS ALERT AND ORIENTED, AO X 4. SHE IS ON RA, TOLERATED WELL. NO S/S OF SOB OR DISTRESS. PATIENT DENIES OF HAVING PAIN AT THIS MOMENT. SHE DENIES OF HAVING NAUSEA OR VOMITING AT THIS MOMENT WELL. IV ACCESS IS AT HER L AC, #22G, RUNNING NS @ 100 ML/HR. IV SITE IS PATENT AND INTACT. WITH ONGOING NS @100ML/, PATENT AND INTACT. SAFETY PRECAUTIONS ARE IN PLACED: BED IN LOWEST AND LOCKED POSITION; SIDE RAILS UP X 2; CALL LIGHT AND TABLE ARE WITHIN REACH. INSTRUCTED THE PATIENT TO CALL FOR HELP IF SHE NEEDS ANYTHING; PATIENT VERBALIZED UNDERSTANDING. WILL CONTINUE MONITOR THE PATIENT AND PROVIDE THE CARE PATIENT NEEDS.
[2022-07-07 20:00] VITALS: BP 128/90
[2022-07-08] MEDS: IV NS 0.9% 1,000 ML IV PRN (00:42)
[2022-07-08] MEDS: HYDROMORPHONE 1 MG/1 ML DISP.SYRIN IV PRN ×7 (02:27→21:07)
--- NOTE | 2022-07-08 06:54 | NUR ---
MS RN CLOSING NOTE PATIENT IS SLEEPING IN BED; EASILY BEING AROUSED. SHE IS ALERT AND ORIENTED, AO X 4. SHE IS ON RA, TOLERATED WELL. NO S/S OF SOB OR DISTRESS. PATIENT DENIES OF HAVING PAIN AT THIS MOMENT. SHE DENIES OF HAVING NAUSEA OR VOMITING AT THIS MOMENT WELL. IV ACCESS IS AT HER L AC, #22G, RUNNING NS @ 100 ML/HR. IV SITE IS PATENT AND INTACT. SAFETY PRECAUTIONS ARE IN PLACED: BED IN LOWEST AND LOCKED POSITION; SIDE RAILS UP X 2; CALL LIGHT AND TABLE ARE WITHIN REACH. WILL ENDORSE NEXT SHIFT NURSE FOR CONTINUING PATIENT CARE.
--- NOTE | 2022-07-08 07:30 | NUR ---
RN MS NOTES PT IN BED, AWAKE, ALERT AND ORIENTED, NO COMPLAINT OF PAIN AT THIS TIME, BREATHING PATTERN NORMAL CALL LIGHT WITHIN REACH, NEEDS ATTENDED.
[2022-07-08 08:00] VITALS: BP 118/73
[2022-07-08] MEDS ORDERED: IV NS 0.9% 1,000 ML IV PRN (09:00)
[2022-07-08] MEDS ORDERED: ONDANSETRON HCL/PF 4 MG/2 ML VIAL IVP PRN (09:00)
[2022-07-08] MEDS: ENSURE CLEAR 237 ML LIQUID (MIX BERRY) PO SCH (09:18)
--- NOTE | 2022-07-08 10:33 | NUR ---
RN MS NOTES PT SEEN AND EXAMINED BY DR. JOHNSON, PLAN OF CARE DISCUSSED WITH PT, VERBALIZED UNDERSTANDING.
--- NOTE | 2022-07-08 14:52 | NUR ---
SS Consult: SS consult requested for alcohol rehab referrals. The pt. is a 41 -year-old female pt. who came into ED due to Pancreatitis and possible alcohol use disorder per EMR. Upon SS consult, the pt. is Alert & Oriented x 4 and makes good eye contact. The pt. appears well-groomed. Pt. has depressed mood & affect. Pt.s speech is soft & clear and thought process is WNL. Pt. remained calm & cooperative throughout interview. Pt. denies SI/HI and denies hallucinations. SW explored pt.s living situation. Per pt. he resides alone at home [[address]; [facility] [address]; with her partner, Estefanía Delgadillo tel: [phone]]. Per pt. she has been drinking heavily after her fathers . Pt. is in denial that drinking alcohol is a problem for her. Pt. attempts to minimize her alcohol use. Pt. also reports that she has been drinking a lot of wine as she was recently in [place]. SW used motivational interviewing & provided psychoeducation on alcohol dependence. Pt. was receptive and accepted addiction referrals. Pt. denies any Hx. of a mental illness. Pt. states her support system also includes her sister, Roxana [phone]. Per pt. denied any mental health diagnosis. The pt. stated she is ambulatory and independent with her ADLs. Plan: NETTE provided pt. with the following addiction resources and pt. accepted them. Pt. states she would like to return home [[address]; [facility] [address];] when she is medically cleared. Pt. states her partner, Estefanía Delgadillo tel: [phone] can provide transportation home when ready for discharge. NETTE discussed DC plans with pt.s RN, Eleni. ADDICTION RESOURCES For Drugs and Alcohol [facility] sober living Referrals For Rehabilitation once sober Address:[address] [place] [address] [facility] [address] [place] [address] Detox/residential [facility] Substance Abuse Helpline ([facility]) Outpatient, residential treatment, recovery support for youth/adults [facility] www.actionfamilycounseling.[facility] Teen programs for drug/alcohol education and support Cathleen Cabral Jarrett. Program for adults, sliding scale provides support and education [facility] www.DecoSnapCarmine.org [place]; Detox/residential treatment programs; transition to sober living [facility] www.cri-help.org [place]; Outpatient and residential treatment programs; transition to sober living [facility] TEL: [phone] [facility] [place] [facility] Chris Hoang; Outpatient education and supportive programs for teens and adults [facility] www.oasiswomensrecst. [facility].org [place]; Residential treatment and work program for females only [facility] www.[facility].[employer]ones [employer] [place]: Outpatient/residential treatment program for teens and young adults [facility] www.navos health.org [facility] Detox, inpatient, outpatient for adults and youth [facility]. Exchange; Outpatient programs and referrals to community residential programs. Alcoholics Anonymous -SFV information and meeting and scheduleswww.aa-intergroup.org [place] https://al-anon.org/ [place] support groups for family of alcoholics. Marijuana Anonymous www.madistrict6.org -SFV listing of meetings Narcotics Anonymous www.na.org SOBER LIVING RESOURCES [facility] www.soberhousing.net A non-profit agency that provides resources to recovery and sober living homes throughout [facility] Sober Living Homes: A Work in ProgressAndrew Ernestina Florent[facility], [facility] Womens Sober Living Homes: [facility] x [phone] My New RAMÓN Mar Odyssey [facility] Sober Living Homes: [facility]--Outpatient [facility] [address], [place] [address] (Specializes in in-depth psychotherapy for emotional distress: anxiety, depression, interpersonal conflicts, life transitions, childhood abuse) [facility] [address] [place] [address] (Assist with solving problem marital difficulties, separation & divorce, aging parents, & grief, chronic & terminal illness) [facility] [address] [place] [address] (Deal with loss & grief, anxiety, marital difficulties) Homebound/Mental Health Services [address], [address] [place] [address] (Provide in-home mental services to people who are incapable of leaving their homes) [facility] Elderly Senior Service[facility]Resource Center [address] [place] [address] [facility] [address] [place] [address] Mental Health Services Radha Rothman [address] [place] [address] Services: Outpatient therapy for children, teens, young adults, adults, older adults, and families; Psychiatric services, medication support Psychiatric Outpatient Services [facility] Partial Hospitalization and Intensive Outpatient Program (Managed Care and [place] Only)[address] [facility] [phone] [facility] Partial Hospitalization and Outpatient [id number] [place], [place] [phone] [facility] Nap02440 [address] [facility] [place], [place] [phone] [facility] Partial Hospitalization and Outpatient Eotyett[address] [facility] Natalya, [phone] Crisis and Hotline Telephone Numbers 24-Hour service unless stated [place] Crisis Hotlines: [facility] Mental Health/Crisis Line........[phone] Suicide Prevention Center (24 Hours).......[phone] Suicide Prevention Crisis Center.......[phone] (24 Hours) Assaults Against Women Hotline.........670.805.1313 (24 Hours -- [facility]) Women and Children Crisis Mcfp...........[phone] (24 Hours) Child Abuse Hotline............216.562.7476 [facility] Rape Treatment Center (24 Hours)..........[phone] Alcoholics Anonymous (24 Hours)..........125.262.1247 Cocaine Anonymous (24 Hours)............281.475.1137 Narcotics Anonymous (24 Hours)..........[phone] [address] Count Includes [facility] [address], [place] [address]
--- NOTE | 2022-07-08 18:30 | NUR ---
RN MS NOTES PT IN BED, AWAKE, ALERT AND ORIENTED, PAIN MEDS GIVEN ORDERED, TOLERATED CURRENT DIET BUT STATES THAT HER APPETITE HAS NOT COME BACK FULLY YET, NO COMPLAINT OF NAUSEA, DR. REYES AWARE, AMBULATES TO THE BATHROOM WITH STEADY GAIT, IV FLUIDS INFUSING WELL, ALL NEEDS ATTENDED.
--- NOTE | 2022-07-08 19:05 | NUR ---
MS RN OPENING NOTES PATIENT IS SITTING IN BED USING HER LAPTOP. SHE IS ALERT AND ORIENTED, AO X 4. SHE IS ON RA, TOLERATED WELL. NO S/S OF SOB OR DISTRESS. PATIENT DENIES OF HAVING PAIN AT THIS MOMENT. SHE DENIES OF HAVING NAUSEA OR VOMITING AT THIS MOMENT WELL. IV ACCESS IS AT HER L AC, #22G, RUNNING NS @ 75 ML/HR. IV SITE IS PATENT AND INTACT. SAFETY PRECAUTIONS ARE IN PLACED: BED IN LOWEST AND LOCKED POSITION; SIDE RAILS UP X 2; CALL LIGHT AND TABLE ARE WITHIN REACH. INSTRUCTED THE PATIENT TO CALL FOR HELP IF SHE NEEDS ANYTHING; PATIENT VERBALIZED UNDERSTANDING. WILL CONTINUE MONITOR THE PATIENT AND PROVIDE THE CARE PATIENT NEEDS.
[2022-07-08 20:00] VITALS: BP 131/84
--- NOTE | 2022-07-08 21:22 | NUR ---
STRUCTURAL STEEL WORKER APPRENTICE NOTE PATIENT STATED HE IS HAVING PAIN 8 OUT OF 10 AT HIS EPIGASTRIC REGION AND LEG CRAMPS. TEXT MD ARTIST'S MANAGER AND WAITING FOR ORDERS. Addendum: 07/08/22 at 2127 by OBDULIO TOM RN WRONG PT
[2022-07-09] MEDS: HYDROMORPHONE 1 MG/1 ML DISP.SYRIN IV PRN ×4 (00:08→10:01)
--- NOTE | 2022-07-09 07:22 | NUR ---
MS RN CLOSING NOTES PATIENT IS SLEEPING IN BED; EASILY BEING AROUSED. SHE IS ALERT AND ORIENTED, AO X 4. SHE IS ON RA, TOLERATED WELL. NO S/S OF SOB OR DISTRESS. PATIENT DENIES OF HAVING PAIN AT THIS MOMENT. SHE DENIES OF HAVING NAUSEA OR VOMITING AT THIS MOMENT WELL. IV ACCESS IS AT HER R FA, #22G, RUNNING NS @ 75 ML/HR. IV SITE IS PATENT AND INTACT. THROUGHOUT THE SHIFT, PATIENT HAS BEEN REQUESTING PRN MEDICATION DILAUDID Q 3 HRS AND STATED THAT HER PAIN LEVEL IS 8 OUT OF 10 EACH TIME. PAIN MEDICATIONS HAVE BEEN ADMINISTERED PER MD ORDER THROUGH THE SHIFT. EDUCATED THE PATIENT ABOUT THE PAIN MEDICATION'S SIDE EFFECT, PATIENT VERBALIZED UNDERSTANDING. SAFETY PRECAUTIONS ARE IN PLACED: BED IN LOWEST AND LOCKED POSITION; SIDE RAILS UP X 2; CALL LIGHT AND TABLE ARE WITHIN REACH. WILL ENDORSE NEXT SHIFT NURSE FOR CONTINUING PATIENT CARE.
--- NOTE | 2022-07-09 07:28 | NUR ---
ENGINEER EXHAUSTER OPENING NOTE RECEIVED PT AWAKE AND RESTING IN BED. PT IS A/OX4, ABLE TO MAKE NEEDS KNOWN. ON ROOM AIR, TOLERATING WELL. NO SOB NOTED. NOT IN ANY SIGN OF RESPIRATORY DISTRESS. IV ACCESS ON RFA G#22 INTACT AND PATENT WITH NS INFUSING AT 75ML/HR. SAFETY MEASURES IN PLACE: BED IN LOWEST AND LOCKED POSITION, SIDE RAILS UPX2, AND CALL LIGHT WITHIN REACH. WILL CONTINUE TO MONITOR PT.
[2022-07-09 08:00] VITALS: BP 128/77
[2022-07-09] MEDS ORDERED: HYDR-4303 PO (08:35)
[2022-07-09] MEDS: ENSURE CLEAR 237 ML LIQUID (MIX BERRY) PO SCH (08:43)
--- NOTE | 2022-07-09 10:03 | NUR ---
RN NOTE PT C/O UPPER ABDOMINAL PAIN WITH PAIN SCALE LEVEL OF 8/10 AND REQUESTED FOR HER DILAUDID PAIN MEDICATION. DILAUDID 0.5MG IVP GIVEN ORDERED Q3HRS PRN FOR SEVERE PAIN. PARTIAL DOSE WASTED AND WAS WITNESSED BY IOANA DONALDSON. WILL MONITOR AND REASSESS PT.
--- NOTE | 2022-07-09 11:05 | NUR ---
SWITCH TENDER NOTE PT DISCHARGED TO HOME IN STABLE CONDITION. PT A/O X4, ABLE TO MAKE NEEDS KNOWN. PT IS ON ROOM AIR, TOLERATING WELL WITH SPO2 AT 96%. NO SOB NOTED. NOT IN ANY SIGN OF RESPIRATORY DISTRESS. VITAL SIGNS TAKEN, STABLE, AND RECORDED. PT REFUSED BODY ASSESSMENTS AND PHOTOGRAPHS OF SKIN ISSUES. ALL BELONGINGS ACCOUNTED FOR. DISCHARGED INSTRUCTIONS AND HEALTH TEACHINGS INCLUDING THE PAIN MEDICATIONS ORDERED EXPLAINED TO THE PT. PT VERBALIZED UNDERSTANDING OF INSTRUCTIONS AND HEALTH TEACHINGS. IV ACCESS ON RFA G#22 REMOVED WITH NO ACTIVE BLEEDING NOTED. DRY PRESSURE DRESSING APPLIED AT THE SITE. WRISTBAND REMOVED. PT LEFT THE UNIT AT 1100 VIA WHEELCHAIR ACCOMPANIED BY THE CHUCK CRAMER. PT WAS PICKED UP BY FRIEND VIA PRIVATE CAR. MD AND CHARGED NURSE AWARE OF DISCHARGED.
== END 2022-07-09 10:55 | disposition home or self-care (01) | DRG 282 ==
LOC: ER 14:59 → MED 18:55
PROVIDERS: ADMIT Internal Medicine; ATTEND Internal Medicine
DX: K85.90 Acute pancreatitis without necrosis or infection, unspecified (principal); K70.10 Alcoholic hepatitis without ascites; E83.39 Other disorders of phosphorus metabolism; K76.0 Fatty (change of) liver, not elsewhere classified; E87.6 Hypokalemia; Z20.822 Contact with and (suspected) exposure to COVID-19; Z88.8 Allergy status to other drugs, medicaments and biological substances; Z79.899 Other long term (current) drug therapy; K86.1 Other chronic pancreatitis; Z82.49 Family history of ischemic heart disease and other diseases of the circulatory system; F10.10 Alcohol abuse, uncomplicated; Y90.9 Presence of alcohol in blood, level not specified; R74.01 Elevation of levels of liver transaminase levels
CPT/HCPCS: 36415; 76705-TC; 80048-TC; 80076-TC; 81001; 83690-TC; 83735-TC; 84100-TC; 84703-TC; 85025-TC; 87081-TC; C9803; G0378; J1170; J1885; J2060; J2270; J2405; J3475; J7030

== ENCOUNTER 2022-10-24 21:29 | Inpatient (IN) | payer OTHER ==
[~2022-10-24] VITALS: Ht 160 cm; Wt 52.6 kg
[~2022-10-24 21:29] MED LIST changes: -HYDR-3980 PO; +HYDR-4303 PO; -NAPR-1164 PO
--- NOTE | 2022-10-24 22:25 | NUR ---
BIBS FOR DIFFUSE ABD PAIN HX ALCOHOL INDUCED PANCREATITIS +ALCOHOL TODAY
[2022-10-24] MEDS ORDERED: HYDROMORPHONE 1 MG/1 ML DISP.SYRIN ONE (22:55)
[2022-10-24 22:56] LABS: BASOPHILS # (AUTO) 0.1 K/uL (0.0-0.2); BASOPHILS % (AUTO) 2.9 % (0.0-2.0); EOSINOPHILS % (AUTO) 0.5 % (0.0-6.0); HEMATOCRIT 35 % (33-45); HEMOGLOBIN 10.6 g/dL (11.5-14.8); LYMPHOCYTES # (AUTO) 1.2 K/uL (0.8-4.8); LYMPHOCYTES % (AUTO) 36.4 % (20.0-44.0); MEAN CORPUSCULAR HGB CONC 31 g/dl (31.0-36.0); MEAN CORPUSCULAR VOLUME 70 fL (82-100); MONOCYTES # (AUTO) 0.5 K/uL (0.1-1.30); NEUTROPHILS # (AUTO) 1.5 K/uL (1.8-8.9); NEUTROPHILS % (AUTO) 46.2 % (43.0-81.0); PLATELET COUNT (AUTO) 162 K/uL (150-450); RED BLOOD CELL COUNT(AUTO) 4.97 MIL/uL (4.0-5.2); WHITE BLOOD COUNT (AUTO) 3.3 K/uL (4.3-11.0)
[2022-10-24] MEDS ORDERED: ONDANSETRON HCL/PF 4 MG/2 ML VIAL ONE (22:56)
[2022-10-24] MEDS ORDERED: IV NS 0.9% 1,000 ML BAG IV ONE (23:00)
[2022-10-24] MEDS ORDERED: HYDROMORPHONE INJ 2 MG/ML DISP.SYRIN IV ONE (23:00)
[2022-10-24] MEDS ORDERED: ONDANSETRON HCL/PF 4 MG/2 ML VIAL IVP ONE (23:00)
[2022-10-24 23:20] LABS: CALCIUM, SERUM 9.6 mg/dL (8.5-10.1); CREATININE 0.4 mg/dL (0.6-1.3); POTASSIUM 3.6 mmol/L (3.5-5.1)
[2022-10-24 23:32] LABS: BILIRUBIN,DIRECT 0.2 mg/dL (0.0-0.2); BILIRUBIN,TOTAL 0.5 mg/dL (0.2-1.0); TOTAL PROTEIN, SERUM 7.8 g/dL (6.4-8.2)
[2022-10-24 23:35] LABS: ALCOHOL, BLOOD 101 mg/dL (0-0); AMYLASE 134 U/L (25-115)
--- NOTE | 2022-10-25 00:54 | NUR ---
COVID SWAB COLLECTED, SENT TO LAB
[2022-10-25] MEDS ORDERED: HYDROMORPHONE 1 MG/1 ML DISP.SYRIN IV ONE (01:00)
[2022-10-25] MEDS ORDERED: ONDANSETRON HCL/PF 4 MG/2 ML VIAL IV ONE (01:00)
[2022-10-25] MEDS ORDERED: ONDANSETRON HCL/PF 4 MG/2 ML VIAL ONE (01:00)
[2022-10-25] MEDS ORDERED: HYDROMORPHONE 1 MG/1 ML DISP.SYRIN ONE (01:01)
--- NOTE | 2022-10-25 01:10 | NUR ---
MOVE SHEET SUBMITTED
--- NOTE | 2022-10-25 01:40 | NUR ---
CLINICAL REPORT GIVEN TO CECILLE SNACK STEWARD
--- NOTE | 2022-10-25 02:25 | NUR ---
[facility] PAGED
--- NOTE | 2022-10-25 02:28 | NUR ---
DR SONIA DOTY ON PHONE CALL WITH DR HOWIE DOTY ADMITTING
[2022-10-25] MEDS ORDERED: ENOXAPARIN SODIUM 40 MG/0.4 ML DISP.SYRIN SQ SCH (02:30)
[2022-10-25] MEDS ORDERED: ACETAMINOPHEN 325 MG TABLET PO PRN ×2 (02:30→04:45)
[2022-10-25] MEDS ORDERED: clonazePAM 0.5 MG TABLET PO PRN ×2 (02:30→04:45)
[2022-10-25] MEDS ORDERED: ONDANSETRON HCL/PF 4 MG/2 ML VIAL IVP PRN (02:30)
[2022-10-25] MEDS ORDERED: MORPHINE SULFATE INJ 2 MG/ML DISP.SYRIN IV PRN ×2 (02:30→04:45)
[2022-10-25] MEDS: IV NS 0.9% 1,000 ML IV SCH ×5 (02:38→22:41)
--- NOTE | 2022-10-25 03:50 | NUR ---
urine collected and sent to lab. Pt ambulated to bathroom.
--- NOTE | 2022-10-25 04:25 | NUR ---
Report givn to Francine TRIPLETT with all questins answered.
--- NOTE | 2022-10-25 04:41 | NUR ---
Pt transfered to floor by EMT.
--- NOTE | 2022-10-25 04:50 | NUR ---
ADMISSION NOTE PATIENT BROUGHT IN UNIT AT AROUND 0455 AM, ACCOMPANIED BY 1 ER PERSONNEL VIA [employer]. PATIENT IS AMBULATORY WITH STEADY GAIT. NO S/S OF APPARENT DISTRESS IN ROOM AIR. C/O 10/10 PAIN IN HER ABDOMEN WELL NAUSEA-- WILL MEDICATE. PATIENT REPORTS HAVING LAST DRINK OF ALCOHOL YESTERDAY, VERY VAGUE, SHE SAID SHE ONLY HAD TWO GLASSES. PATIENT REPORTS SMOKING "OCCASIONALLY". PATIENT REPORTS BEING UP-TO-DATE WITH HER IMMUNIZATIONS INCLUDING COVID. PATIENT WISHES TO BE FULL CODE. IV ON HER RIGHT WRIST 20G RUNNING BOLUS FROM ER. ALL NEEDS ATTENDED FOR NOW. NEW ID BAND ON PATIENT. PATIENT ORIENTED IN THE UNIT AND THE USE OF CALL LIGHT. SAFETY IN PLACE. WILL CONTINUE WITH PATIENT'S PLAN OF CARE AND WILL FOLLOW THROUGH DOCTOR'S ORDERS. V/S TAKEN AND CHARTED.
[2022-10-25 04:55] VITALS: BP 135/76
[2022-10-25 05:02] LABS: BILIRUBIN,URINE 1+ (NEGATIVE); COLOR,URINE YELLOW (YELLOW); LEUKOCYTE ESTERASE ,URINE NEGATIVE (NEGATIVE); NITRITE, URINE NEGATIVE (NEGATIVE); PROTEIN,URINE 1+ mg/dl (NEGATIVE); UGLUCOSE NEGATIVE (NEGATIVE); UROBILINOGEN,URINE 0.2 EU/dL (0.2)
[2022-10-25 05:18] LABS: RBC,URINE TOO NUMEROUS TO COUN /HPF (0-2); WBC,URINE NONE SEEN /HPF (0-3)
[2022-10-25 05:19] LABS: BACTERIA,URINE None seen /HPF (None Seen); MUCUS,URINE Few /LPF (None Seen); SQUAMOUS EPITHELIAL CELL,UR None Seen /HPF (None Seen)
[2022-10-25] MEDS: ONDANSETRON HCL/PF 4 MG/2 ML VIAL IVP PRN ×2 (05:39→20:34)
--- NOTE | 2022-10-25 05:43 | NUR ---
noc rn note-- pain and nausea management patient c/o 03/17 pain "in the pancreas" but refused Morphine, per patient only dilaudid works for her. Also patient c/o nausea when she arrived in the unit and per her Zofran does not seem to work for her but she asked for it anyways. Patient also reports being allergic to Reglan. already messaged hospitalist Dr. Sanders for patients requests. awaiting for Doctor's orders. Patient Given Zofran 4mg as ordered PRN and [facility] Ciara to witness. will re-assess and cont. to monitor.
[2022-10-25] MEDS: HYDROMORPHONE 1 MG/1 ML DISP.SYRIN IV PRN ×6 (06:38→21:55)
[2022-10-25 07:00] VITALS: BP 134/78
--- NOTE | 2022-10-25 07:30 | NUR ---
MS RN OPENING NOTES RECEIVED PT ON BED, ALERT/ORIENTED X4, ASLEEP RESTING COMFORTABLY. NO SIGNS OF DISTRESS. DENIES PAIN AT THIS TIME. SKIN INTACT AND AMBULATORY. NPO BUT OK WITH ICE CHIPS. IV ACCESS INTACT AND PATENT ON RIGHT WRIST RUNNING NS @275 ML/HR. OON ROOM AIR TOLERATING WELL, NO SOB. FALL SAFETY MEASURES IN PLACED. BED LOCKED IN LOWEST POSITION, SIDE RAILS UP X2, CALL LIGHT WITHIN REACH. WILL ADMINISTER ALL SCHEDULED MEDS A SORDERED AND CONTINUE TO MONITOR.
--- NOTE | 2022-10-25 07:32 | NUR ---
noc rn closing needs attended. report given to Yuridia Prasad for continuity of patient care.
[2022-10-25] MEDS: ENOXAPARIN SODIUM 40 MG/0.4 ML DISP.SYRIN SQ SCH (09:17)
[2022-10-25 16:00] VITALS: BP 157/94
--- NOTE | 2022-10-25 18:33 | NUR ---
MS RN CLOSING NOTES PT ON BED, ALERT/ORIENTED X4, AWAKE. NO SIGNS OF DISTRESS. COMPLAINING OF SEVERE PAIN 10/. PAIN MGT ROUND THE CLOCK PER PROTOCOL FOLLOWED. SKIN INTACT AND AMBULATORY. NPO BUT OK WITH ICE CHIPS. CT ABD DONE TODAY. IV ACCESS INTACT AND PATENT ON RIGHT WRIST RUNNING NS @150 ML/HR. ON ROOM AIR TOLERATING WELL, NO SOB. FALL SAFETY MEASURES IN PLACED. BED LOCKED IN LOWEST POSITION, SIDE RAILS UP X2, CALL LIGHT WITHIN REACH. ALL SCHEDULED MEDS GIVEN ORDERED. WILL ENDORSE TO NEXT SHIFT.
--- NOTE | 2022-10-25 19:30 | NUR ---
MS RN OPENING NOTES RECEIVED PT ON BED, ALERT/ORIENTED X4. NO PAIN AT THIS TIME. SKIN INTACT AND PATIENT IS AMBULATORY.PATIENT IS NPO BUT OK WITH ICE CHIPS. IV ACCESS INTACT AND PATENT ON RIGHT WRIST RUNNING NS @150 ML/HR. ON ROOM AIR TOLERATING WELL.ALL SAFETY MEASURES IN PLACED. BED LOCKED IN LOWEST POSITION, SIDE RAILS UP X2, CALL LIGHT AND TABLE WITHIN REACH. WILL CONTINUE TO MONITOR CLOSELY.
[2022-10-25 20:00] VITALS: BP 152/89
--- NOTE | 2022-10-25 20:34 | NUR ---
RN NOTES PATIENT COMPLAINS OF NAUSEA. PRN ZOFRAN GIVEN ORDER AT 2033. WILL ASSESS IN 30 MIN.
--- NOTE | 2022-10-25 21:55 | NUR ---
RN NOTES PATIENT COMPLAINS OF 8/10 OF ABDOMINAL PAIN. PRN DILAUDID 1 ML GIVEN ORDER AT 2155. WILL ASSESS IN 30 MIN.
[2022-10-26] MEDS: HYDROMORPHONE 1 MG/1 ML DISP.SYRIN IV PRN ×10 (00:57→22:38)
--- NOTE | 2022-10-26 00:57 | NUR ---
RN NOTES PATIENT COMPLAINS OF PAIN 8/10 OF THE ABDOMEN. PRN DILAUDID GIVEN ORDER AT 0057. WILL ASSESS IN 30 MIN.
--- NOTE | 2022-10-26 04:09 | NUR ---
RN NOTES PATIENT COMPLAINS OF 8/10 ABDOMINAL PAIN. PRN DILAUDID 1 ML GIVEN FOR PAIN AT 0358. WILL ASSESS PAIN IN 30 MIN.
[2022-10-26] MEDS: IV NS 0.9% 1,000 ML IV SCH ×4 (05:22→23:19)
[2022-10-26 06:40] LABS: BASOPHILS % (AUTO) 0.2 % (0.0-2.0); EOSINOPHILS % (AUTO) 0.2 % (0.0-6.0); HEMATOCRIT 37 % (33-45); HEMOGLOBIN 10.8 g/dL (11.5-14.8); LYMPHOCYTES % (AUTO) 17.6 % (20.0-44.0); MEAN CORPUSCULAR HGB CONC 29 g/dl (31.0-36.0); MEAN CORPUSCULAR VOLUME 74 fL (82-100); MONOCYTES # (AUTO) 0.7 K/uL (0.1-1.30); NEUTROPHILS # (AUTO) 3.8 K/uL (1.8-8.9); PLATELET COUNT (AUTO) 132 K/uL (150-450); RED BLOOD CELL COUNT(AUTO) 4.99 MIL/uL (4.0-5.2); WHITE BLOOD COUNT (AUTO) 5.4 K/uL (4.3-11.0)
--- NOTE | 2022-10-26 06:44 | NUR ---
MS RN CLOSING NOTES PT ON BED, ALERT/ORIENTED X4. NO PAIN AT THIS TIME. SKIN INTACT AND PATIENT IS AMBULATORY.PATIENT IS NPO BUT OK WITH ICE CHIPS. IV ACCESS INTACT AND PATENT ON LEFT FOREARM G # 22 RUNNING NS @150 ML/HR. ON ROOM AIR TOLERATING WELL. ALL DUE MEDS GIVEN ORDERED. PATIENT COMFORTABLE. ALL SAFETY MEASURES IN PLACED. BED LOCKED IN LOWEST POSITION, SIDE RAILS UP X2, CALL LIGHT AND TABLE WITHIN REACH. WILL ENDORSE FOR IRON.
[2022-10-26 07:12] LABS: IRON, SERUM 85 ug/dl (50-175); TOTAL IRON BINDING CAPACITY 357 ug/dl (250-450)
[2022-10-26 07:15] LABS: LIPASE 3138 U/L (73-393)
[2022-10-26 07:16] LABS: CALCIUM, SERUM 8.7 mg/dL (8.5-10.1); CREATININE 0.3 mg/dL (0.6-1.3); MAGNESIUM 1.6 mg/dL (1.8-2.4); PHOSPHORUS 2.6 mg/dL (2.5-4.9); POTASSIUM 3.8 mmol/L (3.5-5.1)
--- NOTE | 2022-10-26 07:18 | NUR ---
MS RN OPENING NOTE RECEIVED PATIENT ON BED, ALERT/ORIENTED X4. NO COMPLAIN OF PAIN, DISCOMFORT AT THIS TIME. WITH IV ACCESS ON THE LEFT FA G 22 RUNNING AT 150ML/HR, INFUSING WELL. ON ROOM AIR TOLERATING, WITH NO SIGNS OF RESPIRATORY DISTRESS. KEPT ON NPO ORDERED. SAFETY MEASURES IN PLACED. BED LOCKED IN LOWEST POSITION, SIDE RAILS UP X2, CALL LIGHT AND TABLE WITHIN REACH. WILL CONTINUE WITH PLAN OF CARE.
[2022-10-26 07:26] LABS: FERRITIN 34 ng/mL (8-388)
[2022-10-26 08:46] VITALS: BP 137/76
[2022-10-26] MEDS: Magnesium 1GM/D5W 100ML PREMIX 100 ML IV SCH ×2 (09:28→12:17)
[2022-10-26] MEDS: ENOXAPARIN SODIUM 40 MG/0.4 ML DISP.SYRIN SQ SCH (09:29)
--- NOTE | 2022-10-26 09:30 | NUR ---
MS RN NOTE SEEN BY HOSPITALIST GOLDEN Atkinson
[2022-10-26] MEDS: MEROPENEM 500 MG in IV NS 0.9% 50 ML IV SCH ×3 (10:17→20:32)
[2022-10-26] MEDS ORDERED: diphenhydrAMINE HCL 50 MG/ML VIAL IV PRN (11:30)
[2022-10-26 16:35] LABS: LYMPHOCYTES % (MANUAL) 11 % (16-48); METAMYELOCYTES % 1 % (0-0); MONOCYTES % (MANUAL) 3 % (0-11.0); NEUTROPHILS % (MANUAL) 85 (42-76)
--- NOTE | 2022-10-26 19:23 | NUR ---
MS RN CLOSING NOTE PATIENT ON BED, ALERT/ORIENTED X4. NO COMPLAIN OF PAIN, DISCOMFORT AT THIS TIME. WITH IV ACCESS ON THE LEFT FA G 22 RUNNING AT 200ML/HR, INFUSING WELL. ON ROOM AIR TOLERATING, WITH NO SIGNS OF RESPIRATORY DISTRESS. STILL KEPT ON NPO ORDERED. VERBALIZED PAIN MORE MANAGEABLE AT THIS TIME WITH PAIN MEDICATION . IN STABLE CONDNTION. SAFETY MEASURES IN PLACED. BED LOCKED IN LOWEST POSITION, SIDE RAILS UP X2, CALL LIGHT AND TABLE WITHIN REACH. WILL CONTINUW WITH PLAN OF CARE.
--- NOTE | 2022-10-26 19:32 | NUR ---
MS RN OPENING NOTES RECEIVED PT ON BED, ALERT/ORIENTED X4. NO PAIN AT THIS TIME. NO SOB NOTED. SKIN IS INTACT AND PATIENT IS AMBULATORY.PATIENT IS NPO BUT IT IS OK TO HAVE ICE CHIPS. IV ACCESS INTACT AND PATENT ON LFA # 22 AND RUNNING NS @200 ML/HR. ON ROOM AIR TOLERATING WELL. ABLE TO MAKE NEEDS KNOWN. ALL SAFETY MEASURES IN PLACED. BED LOCKED IN LOWEST POSITION, SIDE RAILS UP X2, CALL LIGHT AND TABLE WITHIN REACH. WILL CONTINUE TO MONITOR CLOSELY.
[2022-10-26 20:00] VITALS: BP 120/76
[2022-10-27] MEDS: HYDROMORPHONE 1 MG/1 ML DISP.SYRIN IV PRN ×12 (00:38→22:57)
[2022-10-27] MEDS: IV NS 0.9% 1,000 ML IV SCH ×2 (04:55→06:44)
[2022-10-27] MEDS: MEROPENEM 500 MG in IV NS 0.9% 50 ML IV SCH ×3 (04:57→20:30)
--- NOTE | 2022-10-27 06:57 | NUR ---
MS RN CLOSING NOTES PT ON BED, ALERT/ORIENTED X4. NO PAIN AT THIS TIME. NO SOB NOTED. SKIN IS INTACT AND PATIENT IS AMBULATORY.PATIENT IS NPO BUT IT IS OK TO HAVE ICE CHIPS. IV ACCESS INTACT AND PATENT ON LFA # 22 AND RUNNING NS @200 ML/HR. ON ROOM AIR TOLERATING WELL. ABLE TO MAKE NEEDS KNOWN. ALL DUE MEDS GIVEN ORDER. ALL SAFETY MEASURES IN PLACED. BED LOCKED IN LOWEST POSITION, SIDE RAILS UP X2, CALL LIGHT AND TABLE WITHIN REACH. WILL ENDORSE FOR IRON.
[2022-10-27 07:24] LABS: CALCIUM, SERUM 8.6 mg/dL (8.5-10.1); CREATININE 0.3 mg/dL (0.6-1.3); MAGNESIUM 2.1 mg/dL (1.8-2.4); PHOSPHORUS 1.9 mg/dL (2.5-4.9); POTASSIUM 3.3 mmol/L (3.5-5.1)
--- NOTE | 2022-10-27 07:25 | NUR ---
RN OPENING NOTE- PT IN BED, ALERT/ORIENTED X4. PAIN RELIEVED W CURRENT ANALGESICS. SKIN IS INTACT AND PATIENT IS AMBULATORY.PATIENT IS NPO BUT IT IS OK TO HAVE ICE CHIPS. IV ACCESS INTACT AND PATENT ON LFA # 22 AND RUNNING NS @200 ML/HR. ON ROOM AIR TOLERATING WELL. ABLE TO MAKE NEEDS KNOWN. ALL DUE MEDS GIVEN ORDER. ALL SAFETY MEASURES IN PLACED. BED LOCKED IN LOWEST POSITION, SIDE RAILS UP X2, CALL LIGHT AND TABLE WITHIN REACH. MONITOR /ASSIST
[2022-10-27 08:58] VITALS: BP 120/74
[2022-10-27 09:02] LABS: BASOPHILS % (AUTO) 0.7 % (0.0-2.0); EOSINOPHILS % (AUTO) 1.5 % (0.0-6.0); HEMATOCRIT 37 % (33-45); HEMOGLOBIN 10.8 g/dL (11.5-14.8); LYMPHOCYTES % (AUTO) 20.7 % (20.0-44.0); MEAN CORPUSCULAR HGB CONC 30 g/dl (31.0-36.0); MEAN CORPUSCULAR VOLUME 75 fL (82-100); MONOCYTES # (AUTO) 0.5 K/uL (0.1-1.30); NEUTROPHILS # (AUTO) 3.1 K/uL (1.8-8.9); NEUTROPHILS % (AUTO) 66.1 % (43.0-81.0); PLATELET COUNT (AUTO) 121 K/uL (150-450); RED BLOOD CELL COUNT(AUTO) 4.86 MIL/uL (4.0-5.2); WHITE BLOOD COUNT (AUTO) 4.7 K/uL (4.3-11.0)
[2022-10-27] MEDS: ENOXAPARIN SODIUM 40 MG/0.4 ML DISP.SYRIN SQ SCH (09:23)
[2022-10-27] MEDS ORDERED: POTASSIUM CL. PREMIX PERIPHER. 50 ML IV SCH (10:30)
[2022-10-27] MEDS ORDERED: POTASSIUM CHLORIDE 20 MEQ TAB.PRT.SR PO ONE (10:30)
[2022-10-27] MEDS: IV NS 0.9% 1,000 ML IV PRN ×2 (12:12→18:18)
[2022-10-27] MEDS ORDERED: K PHOS NEUTRAL 250 MG TABLET PO ONE (15:30)
--- NOTE | 2022-10-27 18:27 | NUR ---
RN CLOSING NOTE- PT IN BED, ALERT/ORIENTED X4. PAIN RELIEVED W CURRENT ANALGESICS. SKIN IS INTACT AND PATIENT IS AMBULATORY. PT TOLERATING CLEARS. IV ACCESS INTACT AND PATENT ON LFA # 22 AND RUNNING NS @200 ML/HR. ON ROOM AIR TOLERATING WELL. ABLE TO MAKE NEEDS KNOWN. ALL DUE MEDS GIVEN ORDERED. REFUSED MRI , WILL RECEIVE MRI AT PRIVATE MD NEXT WEEK. ALL SAFETY MEASURES IN PLACED. BED LOCKED IN LOWEST POSITION, SIDE RAILS UP X2, CALL LIGHT AND TABLE WITHIN REACH. MONITOR /ASSIST
[2022-10-27 20:00] VITALS: BP 129/96
[2022-10-28] MEDS: HYDROMORPHONE 1 MG/1 ML DISP.SYRIN IV PRN ×12 (01:02→23:00)
[2022-10-28] MEDS: IV NS 0.9% 1,000 ML IV PRN ×4 (01:58→22:10)
--- NOTE | 2022-10-28 04:36 | NUR ---
CLOSING NOTES: ALERT AND ORIENTATED X4 NO N/V THIS 12 HOURS AWAKE THE ENTIRE NIGHT WATCHING TV MOVIES AMBULATES INDEPEND STEADY ON HER LEGS ABD/GENERALIZED PAIN AND MEDICATED Q 2 HOURS ATC WITH DILAUDID 1 MG AND EFFECTIVE CLEAR LIQ DIET TOLERATING
[2022-10-28] MEDS: MEROPENEM 500 MG in IV NS 0.9% 50 ML IV SCH ×3 (05:00→20:59)
[2022-10-28 07:30] VITALS: BP 135/96
[2022-10-28 07:46] LABS: BASOPHILS % (AUTO) 1.1 % (0.0-2.0); EOSINOPHILS % (AUTO) 2.5 % (0.0-6.0); HEMATOCRIT 34 % (33-45); HEMOGLOBIN 10.1 g/dL (11.5-14.8); LYMPHOCYTES # (AUTO) 1.2 K/uL (0.8-4.8); LYMPHOCYTES % (AUTO) 30.1 % (20.0-44.0); MEAN CORPUSCULAR HGB CONC 30 g/dl (31.0-36.0); MEAN CORPUSCULAR VOLUME 74 fL (82-100); MONOCYTES # (AUTO) 0.6 K/uL (0.1-1.30); MONOCYTES % (AUTO) 14.9 % (2.0-12.0); NEUTROPHILS # (AUTO) 2.1 K/uL (1.8-8.9); NEUTROPHILS % (AUTO) 51.4 % (43.0-81.0); PLATELET COUNT (AUTO) 136 K/uL (150-450); RED BLOOD CELL COUNT(AUTO) 4.58 MIL/uL (4.0-5.2); WHITE BLOOD COUNT (AUTO) 4.1 K/uL (4.3-11.0)
[2022-10-28 08:10] LABS: CALCIUM, SERUM 8.7 mg/dL (8.5-10.1); CREATININE 0.2 mg/dL (0.6-1.3); MAGNESIUM 1.9 mg/dL (1.8-2.4); PHOSPHORUS 2.2 mg/dL (2.5-4.9)
--- NOTE | 2022-10-28 08:15 | NUR ---
ms RN OPENING NOTE ( DAY SHIFT) PT IUP OUT-OF-BED, ALERT/ORIENTED X 4. USING BATHROOM. PAIN RELIEVED W CURRENT ANALGESICS. SKIN IS INTACT AND PATIENT IS AMBULATORY.PATIENT IS CLEAR LIQUIDS TOLERATING WELL. IV ACCESS INTACT AND PATENT ON LFA # 22 AND RUNNING NS @200 ML/HR. ON ROOM AIR TOLERATING WELL. ABLE TO MAKE NEEDS KNOWN. ALL SAFETY MEASURES IN PLACE. BED LOCKED IN LOWEST POSITION, SIDE RAILS UP X 2, CALL LIGHT AND TABLE WITHIN REACH. MONITOR /ASSIST PER HOSPITALIST'S POC. CRITICAL POTASSIUM LEVEL OF 2.7 REPORTED TO HOSPITALIST ROSA AMANDA.
[2022-10-28 08:21] LABS: POTASSIUM 2.7 mmol/L (3.5-5.1)
[2022-10-28] MEDS: ENOXAPARIN SODIUM 40 MG/0.4 ML DISP.SYRIN SQ SCH (09:21)
[2022-10-28] MEDS: POTASSIUM CL. PREMIX PERIPHER. 50 ML IV SCH ×2 (11:01→11:13)
[2022-10-28] MEDS ORDERED: POTASSIUM CHLORIDE 20 MEQ TAB.PRT.SR PO ONE (12:00)
[2022-10-28 16:00] VITALS: BP 120/85
[2022-10-28] MEDS ORDERED: K PHOS NEUTRAL 250 MG TABLET PO ONE (17:00)
--- NOTE | 2022-10-28 18:58 | NUR ---
MS RN CLOSING NOTE (DAY SHIFT) PT IN BED, ALERT/ORIENTED X4. PAIN RELIEVED W CURRENT ANALGESICS. SKIN IS INTACT AND PATIENT IS AMBULATORY. PT TOLERATING SOFT DIET WITH SOME MANAGED NAUSEA. IV ACCESS INTACT AND PATENT ON LFA # 22 AND INFUSING NS @ 200 ML/HR. ON ROOM AIR TOLERATING WELL. ABLE TO MAKE NEEDS KNOWN. ALL DUE MEDS GIVEN ORDERED. ALL SAFETY MEASURES IN PLACE: BED LOCKED IN LOWEST POSITION; SIDE RAILS UP X2; CALL LIGHT AND TABLE WITHIN REACH. CRITICAL LOW POTASSIUM LEVEL REPORTED AND POTASSIUM LEVEL REPLACEMENT COMPLETED. WILL ENDORSE TO INDUSTRIAL ELECTRICAL TECHNICIAN RN FOR IRON.
[2022-10-28 20:00] VITALS: BP 135/95
[2022-10-29] MEDS: HYDROMORPHONE 1 MG/1 ML DISP.SYRIN IV PRN ×11 (00:54→22:34)
[2022-10-29] MEDS: MEROPENEM 500 MG in IV NS 0.9% 50 ML IV SCH ×3 (05:03→21:33)
[2022-10-29] MEDS: IV NS 0.9% 1,000 ML IV PRN ×2 (05:03→09:58)
--- NOTE | 2022-10-29 06:19 | NUR ---
Closing Notes; alert and orientated X4 cooperative and friendly medicated Q2 hours for ABD pain with dilaudid and effective ambulates in the room will use the call light and make her needs known no V/N this 12 hours
--- NOTE | 2022-10-29 07:42 | NUR ---
MS RN OPENING NOTE RECEIVED PATIENT SITTING BED, AOX4, ABLE TO MAKE NEEDS FULLY KNOWN, ON ROOM AIR BREATHING WITHOUT ANY DIFFICULTY. PAIN IS CONTROLLED WITH DILAUDID 1MG IVP GIVEN AT 0655. DENIED NAUSEA/VOMITTING. PATIENT ASKED FOR ICE CHIPS AND CRANBERRY JUICE AND WILL TRY TO EAT BREAKFAST, HAS APPETITE. HAS IV ACCESS ON RIGHT HAND G#22 CLEAN, PATENT AND INTACT WITH NS INFUSING @200 ML/HR. SAFETY MEASURES IN PLACE: BED LOCKED IN LOWEST POSITION, SIDE RAILS UP X 2, CALL LIGHT AND TRAY TABLE WITHIN EASY REACH. ORIENTED TO ROOM AND STAFF. WILL CONTINUE TO MONITOR DURING MY SHIFT.
[2022-10-29 08:00] VITALS: BP 122/90
[2022-10-29] MEDS: ENOXAPARIN SODIUM 40 MG/0.4 ML DISP.SYRIN SQ SCH (08:54)
--- NOTE | 2022-10-29 08:57 | NUR ---
RN NOTES - PAIN MANAGEMENT PATIENT CALLED TO REQUEST FOR PAIN MEDICATION, DESCRIBES PAIN 10/10 MEDIAL PAIN AFTER EATING SOME BREAKFAST, ADMINISTERED DILAUDID 1 MG IVP AND WILL CONTINUE TO MONITOR
[2022-10-29 09:10] LABS: BASOPHILS % (AUTO) 1.1 % (0.0-2.0); HEMATOCRIT 31 % (33-45); HEMOGLOBIN 9.1 g/dL (11.5-14.8); LYMPHOCYTES # (AUTO) 1.1 K/uL (0.8-4.8); LYMPHOCYTES % (AUTO) 32.5 % (20.0-44.0); MEAN CORPUSCULAR HGB CONC 30 g/dl (31.0-36.0); MEAN CORPUSCULAR VOLUME 73 fL (82-100); MONOCYTES # (AUTO) 0.6 K/uL (0.1-1.30); NEUTROPHILS # (AUTO) 1.5 K/uL (1.8-8.9); NEUTROPHILS % (AUTO) 45.4 % (43.0-81.0); PLATELET COUNT (AUTO) 135 K/uL (150-450); WHITE BLOOD COUNT (AUTO) 3.3 K/uL (4.3-11.0)
[2022-10-29 09:22] LABS: CALCIUM, SERUM 8.5 mg/dL (8.5-10.1); CREATININE 0.2 mg/dL (0.6-1.3)
[2022-10-29 09:25] LABS: POTASSIUM 2.8 mmol/L (3.5-5.1)
--- NOTE | 2022-10-29 10:07 | NUR ---
RN NOTES - CRITICAL LAB RESULT RECEIVED A CALL FROM LAB RE: POTASSIUM OF 2.8 AT 924, REPORTED TO HOSPITALIST Dagoberto AMANDA AT 929, STILL AWAITING RESPONSE. ALSO REPORTED THAT THE PATIENT WASNT ABLE TO TOLERATE FOOD INTAKE, HAD SEVERE PAIN 10/10. STILL AWAITING ORDERS.
--- NOTE | 2022-10-29 10:28 | NUR ---
RN NOTES WORLDWIDE CHIEF CREATIVE OFFICER VASILIY ORDERED 40 MEQS OF IV POTASSIUM FOR HYPOKALEMIA, CALLED PHARMACY TO ADD LIDOCAINE THE PATIENT CANNOT TOLERATE. CONFIRMED, ORDER PLACED.
[2022-10-29] MEDS: Potassium Chloride 10 MEQ, LIDOCAINE HCL/PF 1% 1 ML in IV D5W 50 ML IV SCH ×4 (11:03→15:22)
--- NOTE | 2022-10-29 12:01 | NUR ---
RN NOTES - PAIN MANAGEMENT PAIN OF 02/15 MEDIAL PAIN GIVEN AT 1134, ADMINISTERED DILAUDID 1 MG IVP AND WILL CONTINUE TO MONITOR.
--- NOTE | 2022-10-29 13:35 | NUR ---
RN NOTES - PAIN MANAGEMENT PAIN OF 02/15 MEDIAL PAIN GIVEN AT 1134, NO NAUSEA/VOMITING, LIPASE IS 1395, HOSPITALIST HAS BEEN INFORMED. ADMINISTERED DILAUDID 1 MG IVP AND WILL CONTINUE TO MONITOR.
[2022-10-29 15:27] LABS: EOSINOPHILS % (MANUAL) 3 % (0-4); LYMPHOCYTES % (MANUAL) 30 % (16-48); MONOCYTES % (MANUAL) 15 % (0-11.0); NEUTROPHILS % (MANUAL) 52 (42-76)
[2022-10-29 16:00] VITALS: BP 130/85
--- NOTE | 2022-10-29 17:56 | NUR ---
RN NOTES - PAIN MANAGEMENT PAIN OF 8-9/10 MEDIAL ABDOMINAL PAIN. ADMINISTERED DILAUDID 1 MG IVP AND WILL CONTINUE TO MONITOR.
--- NOTE | 2022-10-29 19:52 | NUR ---
MS RN CLOSING NOTES PT LYING IN BED, AOX4, ABLE TO MAKE NEEDS FULLY KNOWN, STILL ON ROOM AIR BREATHING WITHOUT ANY DIFFICULTY. PAIN IS CONTROLLED WITH DILAUDID 1MG IVP GIVEN AT 1756. NO EPISODES OF NAUSEA/VOMITING DURING MY SHIFT. WAS ABLE TO TOLERATE LUNCH AND DINNER WITHOUT PAIN. IV ACCESS ON RIGHT HAND G#22 CLEAN, PATENT AND INTACT, REQUESTED TO REST FOR NOW DUE TO 4 BAGS OF IV POTASSIUM. ALL NEEDS MET, ALL DUE MEDS GIVEN. SAFETY MEASURES MAINTAINED: BED LOCKED IN LOWEST POSITION, SIDE RAILS UP X 2, CALL LIGHT AND TRAY TABLE WITHIN EASY REACH. ENDORSED TO PNEUMATIC TOOL OPERATOR NURSE.
[2022-10-29 20:00] VITALS: BP 139/94
--- NOTE | 2022-10-29 20:00 | NUR ---
RN OPENING NOTE PATIENT AWAKE IN BED. A/OX4. NO S/S OF DISTRESS, BREATHING WITHOUT DIFFICULTY ON ROOM AIR. R-HAND #22 INTACT AND PATENT W/ NS 200ML/HR ORDERED - PATIENT IS REFUSING IVF FOR NOW. SAFETY MEASURES IN PLACE: BED LOCKED AND AT LOWEST POSITION, RAILS UP X2, CALL LUU WITHIN REACH. WILL CONTINUE TO MONITOR PATIENT.
[2022-10-30] MEDS: HYDROMORPHONE 1 MG/1 ML DISP.SYRIN IV PRN ×9 (00:36→22:00)
[2022-10-30] MEDS: MEROPENEM 500 MG in IV NS 0.9% 50 ML IV SCH ×3 (05:15→21:40)
[2022-10-30 06:32] LABS: BASOPHILS # (AUTO) 0.1 K/uL (0.0-0.2); BASOPHILS % (AUTO) 2.6 % (0.0-2.0); HEMATOCRIT 33 % (33-45); HEMOGLOBIN 10.2 g/dL (11.5-14.8); LYMPHOCYTES # (AUTO) 0.9 K/uL (0.8-4.8); LYMPHOCYTES % (AUTO) 31.4 % (20.0-44.0); MEAN CORPUSCULAR HGB CONC 31 g/dl (31.0-36.0); MEAN CORPUSCULAR VOLUME 72 fL (82-100); MONOCYTES # (AUTO) 0.6 K/uL (0.1-1.30); MONOCYTES % (AUTO) 19.5 % (2.0-12.0); NEUTROPHILS # (AUTO) 1.3 K/uL (1.8-8.9); NEUTROPHILS % (AUTO) 42.5 % (43.0-81.0); PLATELET COUNT (AUTO) 169 K/uL (150-450); RED BLOOD CELL COUNT(AUTO) 4.59 MIL/uL (4.0-5.2)
[2022-10-30 07:00] VITALS: BP 117/85
--- NOTE | 2022-10-30 07:00 | NUR ---
RN CLOSING NOTE PATIENT ASLEEP IN BED. A/OX4. NO S/S OF DISTRESS, BREATHING WITHOUT DIFFICULTY ON ROOM AIR. R-HAND #22 INTACT AND PATENT - PATIENT REFUSES IVF. SAFETY MEASURES IN PLACE: BED LOCKED AND AT LOWEST POSITION, RAILS UP X2, CALL LUU WITHIN REACH. WILL ENDORSE TO NEXT SHIFT FOR IRON.
[2022-10-30 07:10] LABS: CREATININE 0.3 mg/dL (0.6-1.3); MAGNESIUM 1.7 mg/dL (1.8-2.4); PHOSPHORUS 3.1 mg/dL (2.5-4.9)
--- NOTE | 2022-10-30 07:30 | NUR ---
RN CLOSING NOTE PATIENT ASLEEP IN BED, AROUSABLE. A/OX4. NO S/S OF DISTRESS, BREATHING WITHOUT DIFFICULTY ON ROOM AIR. R-HAND #22 INTACT AND PATENT - PATIENT REFUSES IVF. SAFETY MEASURES IN PLACE: BED LOCKED AND AT LOWEST POSITION, RAILS UP X2, CALL LUU WITHIN REACH. WILL CONTINUE TO MONITOR FOR IRON. Addendum: 10/30/22 at 1241 by MELBA DENNIS JR, RN OPENING NOTES
[2022-10-30 08:41] LABS: POTASSIUM 2.8 mmol/L (3.5-5.1)
--- NOTE | 2022-10-30 08:45 | NUR ---
Critical report received from lab-2.8 potassium, TL moya
[2022-10-30] MEDS: ENOXAPARIN SODIUM 40 MG/0.4 ML DISP.SYRIN SQ SCH (09:18)
[2022-10-30] MEDS: Potassium Chloride 10 MEQ, LIDOCAINE HCL/PF 1% 1 ML in IV D5W 50 ML IV SCH ×6 (10:01→15:47)
[2022-10-30] MEDS: Magnesium 1GM/D5W 100ML PREMIX 100 ML IV SCH ×2 (11:29→12:33)
[2022-10-30 15:34] LABS: EOSINOPHILS % (MANUAL) 4 % (0-4); LYMPHOCYTES % (MANUAL) 29 % (16-48); MONOCYTES % (MANUAL) 19 % (0-11.0); NEUTROPHILS % (MANUAL) 48 (42-76)
[2022-10-30 16:00] VITALS: BP 108/69
--- NOTE | 2022-10-30 18:17 | NUR ---
RN CLOSING NOTE PATIENT AWAKE, A/OX4. NO S/S OF DISTRESS, BREATHING WITHOUT DIFFICULTY ON ROOM AIR. R-HAND #22 INTACT AND PATENT. POTASSIUM & MAGNESIUM REPLETED AWAITING LAB RESULT, PAIN MGT Q2, ALL MEDS GIVEN ORDERED. SAFETY MEASURES IN PLACE: BED LOCKED AND AT LOWEST POSITION, RAILS UP X2, CALL LUU WITHIN REACH. WILL ENDORSE TO NEXT SHIFT FOR IRON
[2022-10-30 18:31] LABS: ALBUMIN 4.2 g/dL (3.4-5.0); BILIRUBIN,TOTAL 0.5 mg/dL (0.2-1.0); CALCIUM, SERUM 9.5 mg/dL (8.5-10.1); CREATININE 0.4 mg/dL (0.6-1.3); POTASSIUM 3.5 mmol/L (3.5-5.1); TOTAL PROTEIN, SERUM 8.3 g/dL (6.4-8.2)
--- NOTE | 2022-10-30 19:30 | NUR ---
MS RN OPENING NOTE RECEIVED PATIENT IN BED; AWAKE, ALERT AND ORIENTED X 4. ON ROOM AIR; TOLERATING WELL. NOT IN ANY FORM OF RESPIRATORY OR CARDIAC DISTRESS. WITH COMPLAINTS OF ABDOMINAL PAIN 8/10 PAIN SCALE. WITH IV ACCESS ON RIGHT HAND 22g; INTACT AND PATENT INFUSING WITH NS 1L RUNNING @ 200 ML/HR ORDERED. ABLE TO MAKE NEEDS KNOWN. SAFETY PRECAUTIONS INITIATED: CALL LIGHT AND TABLE WITHIN REACH, SIDE RAILS UP X 2, BED IN LOWEST LOCKED POSITION. WILL CONTINUE TO MONITOR THROUGHOUT SHIFT.
--- NOTE | 2022-10-30 19:48 | NUR ---
RN NOTE-PAIN MANAGEMENT PATIENT COMPLAINED OF PAIN ON MEDIAL ABDOMEN 8/10 PAIN SCALE. PRN DILAUDID 1 MG GIVEN IVP ORDERED. WILL CONTINUE TO MONITOR AND REASSESS PATIENT.
[2022-10-30 20:00] VITALS: BP 117/80
[2022-10-30 20:13] VITALS: BP 117/80
[2022-10-30] MEDS: IV NS 0.9% 1,000 ML IV PRN (20:20)
--- NOTE | 2022-10-30 22:00 | NUR ---
RN NOTE-PAIN MANAGEMENT PATIENT COMPLAINED OF MEDIAL ABDOMINAL PAIN 9/10 PAIN SCALE. PRN DILAUDID 1 MG GIVEN IV PUSH ORDERED. WILL CONTINUE TO MONITOR AND REASSESS PATIENT.
[2022-10-31] MEDS: HYDROMORPHONE 1 MG/1 ML DISP.SYRIN IV PRN ×8 (00:02→15:56)
--- NOTE | 2022-10-31 00:02 | NUR ---
RN NOTE-PAIN MANAGEMENT PATIENT COMPLAINED OF MEDIAL ABDOMINAL PAIN WITH 8/10 PAIN SCALE. PRN DILAUDID 1 MG GIVEN IV PUSH ORDERED. WILL CONTINUE TO MONITOR AND REASSESS PATIENT.
--- NOTE | 2022-10-31 02:10 | NUR ---
RN NOTE-PAIN MANAGEMENT PATIENT COMPLAINED OF ABDOMINAL PAIN 9/10 PAIN SCALE. PRN DILAUDID 1 MG GIVEN IV PUSH ORDERED. WILL CONTINUE TO MONITOR AND REASSESS PATIENT.
--- NOTE | 2022-10-31 04:20 | NUR ---
RN NOTE-PAIN MANAGEMENT PATIENT COMPLAINED OF ABDOMINAL PAIN 9/10 PAIN SCALE. PRN DILAUDID 1 MG GIVEN IV PUSH ORDERED. WILL CONTINUE TO MONITOR AND REASSESS PATIENT.
[2022-10-31] MEDS: MEROPENEM 500 MG in IV NS 0.9% 50 ML IV SCH ×2 (05:53→12:52)
--- NOTE | 2022-10-31 06:44 | NUR ---
RN NOTE-PAIN MANAGEMENT PATIENT COMPLAINED OF ABDOMINAL PAIN 9/10 PAIN SCALE. PRN DILAUDID 1 MG GIVEN IV PUSH ORDERED. WILL CONTINUE TO MONITOR AND REASSESS PATIENT.
[2022-10-31 06:59] LABS: BASOPHILS # (AUTO) 0.1 K/uL (0.0-0.2); EOSINOPHILS % (AUTO) 3.9 % (0.0-6.0); HEMATOCRIT 31 % (33-45); HEMOGLOBIN 9.7 g/dL (11.5-14.8); LYMPHOCYTES # (AUTO) 1.1 K/uL (0.8-4.8); LYMPHOCYTES % (AUTO) 37.3 % (20.0-44.0); MEAN CORPUSCULAR HGB CONC 31 g/dl (31.0-36.0); MEAN CORPUSCULAR VOLUME 73 fL (82-100); MONOCYTES # (AUTO) 0.7 K/uL (0.1-1.30); MONOCYTES % (AUTO) 22.7 % (2.0-12.0); NEUTROPHILS # (AUTO) 0.9 K/uL (1.8-8.9); PLATELET COUNT (AUTO) 142 K/uL (150-450); WHITE BLOOD COUNT (AUTO) 2.9 K/uL (4.3-11.0)
[2022-10-31 07:00] VITALS: BP 100/66
--- NOTE | 2022-10-31 07:03 | NUR ---
MS RN CLOSING NOTE PATIENT IN BED; AWAKE, A/O X 4. STABLE ON ROOM AIR. NOT IN ANY FORM OF RESPIRATORY OR CARDIAC DISTRESS. WITH IV ACCESS ON RIGHT HAND 22g; INTACT AND PATENT INFUSING WITH NS 1L RUNNING @ 200ML/HR ORDERED. ABLE TO MAKE NEEDS KNOWN. SAFETY PRECAUTIONS MAINTAINED: CALL LIGHT AND TABLE WITHIN REACH, SIDE RAILS UP X 2, BED IN LOWEST LOCKED POSITION. ENDORSED TO MORNING SHIFT FOR CONTINUITY OF CARE.
[2022-10-31 07:16] LABS: CALCIUM, SERUM 8.4 mg/dL (8.5-10.1); CREATININE 0.3 mg/dL (0.6-1.3); PHOSPHORUS 3.8 mg/dL (2.5-4.9); POTASSIUM 3.3 mmol/L (3.5-5.1)
--- NOTE | 2022-10-31 07:25 | NUR ---
RN CLOSING NOTE RECEIVED PATIENT AWAKE, A/OX4. NO S/S OF DISTRESS, BREATHING WITHOUT DIFFICULTY ON ROOM AIR. R-HAND #22 INTACT AND PATENT, SAFETY MEASURES IN PLACE: BED LOCKED AND AT LOWEST POSITION, RAILS UP X2, CALL LUU WITHIN REACH. WILL CONTINUE TO MONITOR FOR IRON Addendum: 10/31/22 at 1109 by MELBA DENNIS JR, RN OPENING NOTE
[2022-10-31 07:27] LABS: BASOPHILS % (AUTO) 5.1 % (0.0-2.0)
[2022-10-31] MEDS: ENOXAPARIN SODIUM 40 MG/0.4 ML DISP.SYRIN SQ SCH (08:34)
[2022-10-31] MEDS ORDERED: POTASSIUM CHLORIDE 20 MEQ TAB.PRT.SR PO ONE (09:00)
[2022-10-31 14:09] LABS: BAND % (MANUAL) 1 % (0.0-5.0); EOSINOPHILS % (MANUAL) 6 % (0-4); LYMPHOCYTES % (MANUAL) 27 % (16-48); MONOCYTES % (MANUAL) 20 % (0-11.0); NEUTROPHILS % (MANUAL) 46 (42-76)
--- NOTE | 2022-10-31 16:30 | NUR ---
Patient discharged by MD on stable condition, A/O x4, able to make needs known, pain medications given up to prior to departure. Patient was given discharge instructions both verbally and in writing. All belongings accounted for, IV access removed, C/D/I. Patient left the unit in stable condition at 1617 Addendum: 10/31/22 at 1646 by MELBA DENNIS JR, RN Charge nurse aware.
== END 2022-10-31 16:17 | disposition home or self-care (01) | DRG 282 ==
LOC: ER 21:31 → MED 10-25 04:47
PROVIDERS: ADMIT Nurse Practitioner Acute Care; ATTEND Nurse Practitioner Acute Care
DX: K85.20 Alcohol induced acute pancreatitis without necrosis or infection (principal); E83.39 Other disorders of phosphorus metabolism; E87.20 Acidosis, unspecified; E88.89 Other specified metabolic disorders; K86.3 Pseudocyst of pancreas; E87.1 Hypo-osmolality and hyponatremia; E86.1 Hypovolemia; D50.9 Iron deficiency anemia, unspecified; E83.42 Hypomagnesemia; E87.6 Hypokalemia; Z82.49 Family history of ischemic heart disease and other diseases of the circulatory system; Z20.822 Contact with and (suspected) exposure to COVID-19; Z88.8 Allergy status to other drugs, medicaments and biological substances; Z79.899 Other long term (current) drug therapy; E86.0 Dehydration; R74.01 Elevation of levels of liver transaminase levels; N83.202 Unspecified ovarian cyst, left side
CPT/HCPCS: 36415; 76856-TC; 80048-TC; 80053-TC; 80076-TC; 81001; 82150-TC; 82728-TC; 83540-TC; 83605-TC; 83690-TC; 83735-TC; 84100-TC; 84132-TC; 84702-TC; 85025-TC; 87081-TC; A4223; C9803; G0378; G0480; J1170; J1650; J2185; J2270; J2405; J3475; J3480; J3490; J7030; J7050; J7060

== ENCOUNTER 2023-06-08 08:36 | Inpatient (IN) | payer MEDICAID, OTHER ==
[~2023-06-08] VITALS: Ht 160 cm; Wt 47.2 kg
[~2023-06-08 08:36] MED LIST changes: +CYCL5TAB PO
[2023-06-08] MEDS ORDERED: HYDROMORPHONE INJ 2 MG/ML DISP.SYRIN IV ONE (09:00)
[2023-06-08] MEDS ORDERED: IV NS 0.9% 1,000 ML BAG IV ONE (09:00)
[2023-06-08] MEDS ORDERED: ONDANSETRON HCL/PF 4 MG/2 ML VIAL IVP ONE (09:00)
[2023-06-08] MEDS ORDERED: ONDANSETRON HCL/PF 4 MG/2 ML VIAL ONE ×3 (09:19→20:00)
[2023-06-08] MEDS ORDERED: HYDROMORPHONE 1 MG/1 ML DISP.SYRIN ONE ×4 (09:19→20:48)
[2023-06-08 10:28] LABS: ALANINE AMINOTRANSFERASE 93 U/L (12-78); ALBUMIN 3.8 g/dL (3.4-5.0); ALKALINE PHOSPHATASE 136 U/L (46-116); ASPARTATE AMINOTRANSFERASE 247 U/L (15-37); BILIRUBIN,DIRECT 0.6 mg/dL (0.0-0.2); BILIRUBIN,TOTAL 2.4 mg/dL (0.2-1.0); CALCIUM, SERUM 9.5 mg/dL (8.5-10.1); CARBON DIOXIDE 21 mmol/L (21-32); CHLORIDE 91 mmol/L (98-107); CREATININE 0.5 mg/dL (0.6-1.3); GLUCOSE 85 mg/dL (74-106); POTASSIUM 3.4 mmol/L (3.5-5.1); SODIUM SERUM 132 mmol/L (136-145); UREA NITROGEN, BLOOD 11 mg/dL (7-18)
[2023-06-08 10:32] LABS: BASOPHILS % (AUTO) 0.5 % (0.0-2.0); EOSINOPHILS % (AUTO) 0.9 % (0.0-6.0); HEMATOCRIT 36 % (33-45); HEMOGLOBIN 12.1 g/dL (11.5-14.8); LYMPHOCYTES # (AUTO) 0.8 K/uL (0.8-4.8); MEAN CORPUSCULAR HEMOGLOBIN 33 PG (26.0-33.0); MEAN CORPUSCULAR HGB CONC 34 g/dl (31.0-36.0); MEAN CORPUSCULAR VOLUME 97 fL (82-100); MONOCYTES # (AUTO) 0.4 K/uL (0.1-1.30); MONOCYTES % (AUTO) 12.9 % (2.0-12.0); NEUTROPHILS % (AUTO) 60.7 % (43.0-81.0); PLATELET COUNT (AUTO) 91 K/uL (150-450); RED BLOOD CELL COUNT(AUTO) 3.67 MIL/uL (4.0-5.2); RED CELL DISTRIBUTION WIDTH 14.7 % (11.5-15.0); WHITE BLOOD COUNT (AUTO) 3.2 K/uL (4.3-11.0)
[2023-06-08 10:50] LABS: LIPASE > 375 U/L (16-77)
[2023-06-08 11:48] LABS: BAND % (MANUAL) 1 % (0.0-5.0); EOSINOPHILS % (MANUAL) 1 % (0-4); LYMPHOCYTES % (MANUAL) 26 % (16-48); MONOCYTES % (MANUAL) 8 % (0-11.0); NEUTROPHILS % (MANUAL) 64 (42-76)
[2023-06-08 11:49] LABS: ANISOCYTOSIS 1+; PLATELET ESTIMATE DECREASED
[2023-06-08] MEDS ORDERED: HYDROMORPHONE 1 MG/1 ML DISP.SYRIN IV ONE (13:30)
[2023-06-08] MEDS ORDERED: IV NS 0.9% 250 ML IV ONE (13:32)
[2023-06-08] MEDS ORDERED: IOHEXOL-300 100 ML VIAL IV ONE (13:32)
[2023-06-08 14:36] LABS: PREGNANCY TEST URINE QUAL NEGATIVE (NEGATIVE)
[2023-06-08] MEDS ORDERED: ONDANSETRON HCL/PF - ER 4 MG/2 ML VIAL IV ONE (15:00)
[2023-06-08] MEDS ORDERED: MAGNESIUM HYDROXIDE 30 ML UDC PO PRN (16:00)
[2023-06-08] MEDS ORDERED: Z GUARD REMEDY 4 OZ OINT TP PRN (16:00)
[2023-06-08] MEDS ORDERED: MAG HYDROX/AL HYDROX/SIMETH 30 ML UDC PO PRN (16:00)
[2023-06-08 17:24] LABS: APPEARANCE,URINE SLIGHTLY CLOUDY (CLEAR); BILIRUBIN,URINE NEGATIVE (NEGATIVE); BLOOD, URINE 3+ Ery/uL (NEGATIVE); COLOR,URINE YELLOW (YELLOW); KETONES,URINE 3+ mg/dL (NEGATIVE); LEUKOCYTE ESTERASE ,URINE NEGATIVE (NEGATIVE); NITRITE, URINE POSITIVE (NEGATIVE); PROTEIN,URINE 1+ mg/dl (NEGATIVE); UGLUCOSE NEGATIVE (NEGATIVE)
[2023-06-08 18:13] LABS: ADD URINE CULTURE YES; BACTERIA,URINE RARE /HPF (None Seen); RBC,URINE 51-80 /HPF (0-2); SQUAMOUS EPITHELIAL CELL,UR 0-2 /HPF (None Seen); WBC,URINE 0-2 /HPF (0-3)
[2023-06-08] MEDS: HYDROMORPHONE 1 MG/1 ML DISP.SYRIN IV PRN ×3 (18:24→23:03)
[2023-06-08] MEDS ORDERED: HYDROMORPHONE 1 MG/1 ML DISP.SYRIN IV PRN (18:30)
[2023-06-08] MEDS: ONDANSETRON HCL/PF 4 MG/2 ML VIAL IVP PRN (20:03)
[2023-06-08 21:40] VITALS: BP 120/82; TEMP 98.2; O2SAT 100
[2023-06-08] MEDS: IV 1/2NS 1000 ML 1,000 ML IV PRN (22:05)
[2023-06-09] MEDS: HYDROMORPHONE 1 MG/1 ML DISP.SYRIN IV PRN ×10 (01:13→22:32)
[2023-06-09] MEDS: ONDANSETRON HCL/PF 4 MG/2 ML VIAL IVP PRN ×3 (03:55→19:47)
[2023-06-09 04:00] VITALS: BP 107/69; TEMP 98.2; O2SAT 98
[2023-06-09] MEDS: IV 1/2NS 1000 ML 1,000 ML IV PRN (04:33)
[2023-06-09 06:30] LABS: BASOPHILS % (AUTO) 0.7 % (0.0-2.0); EOSINOPHILS % (AUTO) 0.6 % (0.0-6.0); HEMATOCRIT 29 % (33-45); HEMOGLOBIN 9.6 g/dL (11.5-14.8); LYMPHOCYTES # (AUTO) 0.7 K/uL (0.8-4.8); LYMPHOCYTES % (AUTO) 14.1 % (20.0-44.0); MEAN CORPUSCULAR HEMOGLOBIN 33 PG (26.0-33.0); MEAN CORPUSCULAR HGB CONC 34 g/dl (31.0-36.0); MEAN CORPUSCULAR VOLUME 99 fL (82-100); MONOCYTES # (AUTO) 0.5 K/uL (0.1-1.30); MONOCYTES % (AUTO) 11.6 % (2.0-12.0); NEUTROPHILS # (AUTO) 3.4 K/uL (1.8-8.9); PLATELET COUNT (AUTO) 87 K/uL (150-450); RED CELL DISTRIBUTION WIDTH 14.9 % (11.5-15.0); WHITE BLOOD COUNT (AUTO) 4.6 K/uL (4.3-11.0)
[2023-06-09 06:47] LABS: ALBUMIN 3.3 g/dL (3.4-5.0); BILIRUBIN,TOTAL 1.1 mg/dL (0.2-1.0); CALCIUM, SERUM 8.7 mg/dL (8.5-10.1); CREATININE 0.3 mg/dL (0.6-1.3); MAGNESIUM 1.5 mg/dL (1.8-2.4); PHOSPHORUS 2.5 mg/dL (2.5-4.9); POTASSIUM 2.9 mmol/L (3.5-5.1); TOTAL PROTEIN, SERUM 6.6 g/dL (6.4-8.2)
[2023-06-09 08:00] VITALS: BP 117/80; TEMP 98.4; O2SAT 100
[2023-06-09] MEDS: Magnesium 1GM/D5W 100ML PREMIX 100 ML IV SCH ×2 (11:20→12:07)
[2023-06-09 12:59] LABS: EOSINOPHILS % (MANUAL) 1 % (0-4); LYMPHOCYTES % (MANUAL) 10 % (16-48); MONOCYTES % (MANUAL) 7 % (0-11.0); NEUTROPHILS % (MANUAL) 82 (42-76)
[2023-06-09 13:00] LABS: PLATELET ESTIMATE DECREASED
[2023-06-09] MEDS: POTASSIUM CL. PREMIX PERIPHER. 50 ML IV SCH ×6 (13:38→18:09)
[2023-06-09 16:44] VITALS: BP 114/82; TEMP 98; O2SAT 100
[2023-06-09 20:00] VITALS: BP 111/81; TEMP 98.5; O2SAT 99
[2023-06-10] MEDS: HYDROMORPHONE 1 MG/1 ML DISP.SYRIN IV PRN ×6 (00:36→12:47)
[2023-06-10 04:00] VITALS: BP 107/85; TEMP 97.9; O2SAT 100
[2023-06-10] MEDS: ONDANSETRON HCL/PF 4 MG/2 ML VIAL IVP PRN (04:08)
[2023-06-10 08:06] LABS: EOSINOPHILS # (AUTO) 0.1 K/uL (0.0-0.7); EOSINOPHILS % (AUTO) 2.1 % (0.0-6.0); HEMATOCRIT 28 % (33-45); HEMOGLOBIN 9.5 g/dL (11.5-14.8); LYMPHOCYTES # (AUTO) 0.7 K/uL (0.8-4.8); LYMPHOCYTES % (AUTO) 19.2 % (20.0-44.0); MEAN CORPUSCULAR HEMOGLOBIN 34 PG (26.0-33.0); MEAN CORPUSCULAR HGB CONC 34 g/dl (31.0-36.0); MEAN CORPUSCULAR VOLUME 98 fL (82-100); MONOCYTES # (AUTO) 0.5 K/uL (0.1-1.30); MONOCYTES % (AUTO) 15.2 % (2.0-12.0); NEUTROPHILS # (AUTO) 2.1 K/uL (1.8-8.9); NEUTROPHILS % (AUTO) 62.5 % (43.0-81.0); PLATELET COUNT (AUTO) 120 K/uL (150-450); RED BLOOD CELL COUNT(AUTO) 2.83 MIL/uL (4.0-5.2); RED CELL DISTRIBUTION WIDTH 14.6 % (11.5-15.0); WHITE BLOOD COUNT (AUTO) 3.4 K/uL (4.3-11.0)
[2023-06-10 08:22] LABS: ALBUMIN 3.3 g/dL (3.4-5.0); BILIRUBIN,TOTAL 0.9 mg/dL (0.2-1.0); CALCIUM, SERUM 8.7 mg/dL (8.5-10.1); CREATININE 0.3 mg/dL (0.6-1.3); MAGNESIUM 1.8 mg/dL (1.8-2.4); PHOSPHORUS 2.1 mg/dL (2.5-4.9); TOTAL PROTEIN, SERUM 6.7 g/dL (6.4-8.2)
[2023-06-10 08:43] LABS: POTASSIUM 2.3 mmol/L (3.5-5.1)
[2023-06-10 08:57] VITALS: BP 117/82; TEMP 98.2; O2SAT 100
[2023-06-10 10:42] LABS: EOSINOPHILS % (MANUAL) 4 % (0-4); LYMPHOCYTES % (MANUAL) 13 % (16-48); MONOCYTES % (MANUAL) 12 % (0-11.0); NEUTROPHILS % (MANUAL) 71 (42-76); PLATELET ESTIMATE DECREASED
[2023-06-10] MEDS: POTASSIUM CHLORIDE 20 MEQ TAB.PRT.SR PO SCH ×5 (10:45→15:03)
[2023-06-10] MEDS: IV NS 0.9% 1,000 ML IV ONE ×2 (12:00→15:18)
[2023-06-10 15:00] LABS: CREATININE 0.4 mg/dL (0.6-1.3)
[2023-06-10 15:13] LABS: POTASSIUM 2.8 mmol/L (3.5-5.1)
[2023-06-10] MEDS: HYDROCODONE/APAP 5/325MG TABLET PO PRN ×2 (15:40→20:14)
[2023-06-10] MEDS ORDERED: NEUTRA PHOS 1 POWD.PACKET PO ONE (16:00)
[2023-06-10 16:05] VITALS: BP 114/82; TEMP 98; O2SAT 100
[2023-06-10 20:00] VITALS: BP 101/60; TEMP 98.3; O2SAT 100
[2023-06-10] MEDS: MORPHINE SULFATE INJ 2 MG/ML DISP.SYRIN IV PRN (22:24)
[2023-06-11] MEDS: MORPHINE SULFATE INJ 2 MG/ML DISP.SYRIN IV PRN ×3 (02:46→10:58)
[2023-06-11 04:00] VITALS: BP 101/67; TEMP 98.2; O2SAT 100
[2023-06-11] MEDS ORDERED: Potassium Chloride 20 MEQ in IV NS 0.9% 1,000 ML IV PRN (06:00)
[2023-06-11 08:00] VITALS: BP 108/69; TEMP 98.1; O2SAT 100
[2023-06-11] MEDS ORDERED: Potassium Chloride 20 MEQ in IV NS 0.9% 1,000 ML IV SCH (08:00)
[2023-06-11] MEDS: HYDROCODONE/APAP 5/325MG TABLET PO PRN (08:48)
== END 2023-06-11 13:15 | disposition left against medical advice (07) | DRG 282 ==
LOC: ER 08:36 → MEDSG1 20:52
PROVIDERS: ADMIT Internal Medicine; ATTEND Internal Medicine
DX: K85.90 Acute pancreatitis without necrosis or infection, unspecified (principal); D69.6 Thrombocytopenia, unspecified; K76.0 Fatty (change of) liver, not elsewhere classified; E87.1 Hypo-osmolality and hyponatremia; D72.819 Decreased white blood cell count, unspecified; D50.9 Iron deficiency anemia, unspecified; F10.10 Alcohol abuse, uncomplicated; Z88.8 Allergy status to other drugs, medicaments and biological substances; E87.6 Hypokalemia; K86.3 Pseudocyst of pancreas; Z76.5 Malingerer [conscious simulation]; E83.42 Hypomagnesemia; D69.59 Other secondary thrombocytopenia; Z82.49 Family history of ischemic heart disease and other diseases of the circulatory system; I10 Essential (primary) hypertension; Z53.29 Procedure and treatment not carried out because of patient's decision for other reasons
CPT/HCPCS: 36415; 80048-TC; 80053-TC; 80076-TC; 81001; 83690-TC; 83735-TC; 84100-TC; 84478-TC; 84702-TC; 84703-TC; 85025-TC; A4223; G0378; J1170; J2270; J2405; J3475; J3480; J3490; J7030; J7050; Q9967

== ENCOUNTER 2023-11-19 21:10 | Inpatient (IN) | payer MEDICAID ==
[~2023-11-19] VITALS: Ht 160 cm; Wt 51.3 kg
[~2023-11-19 21:10] MED LIST changes: -CLON0.5T PO; -CYCL5TAB PO; -HYDR-4303 PO; -LIDO30AD10 TP; +NITR100C11 PO
[2023-11-19] MEDS: MAG HYDROX/AL HYDROX/SIMETH 30 ML UDC PO ONE (21:40)
[2023-11-19] MEDS: MORPHINE SULFATE INJ 2 MG/ML DISP.SYRIN IV ONE (21:40)
[2023-11-19] MEDS: IV NS 0.9% 1,000 ML BAG IV ONE (21:40)
[2023-11-19] MEDS: LIDOCAINE VISCOUS 2% UD 15 ML UDC MM ONE (21:40)
[2023-11-19 21:47] LABS: BASOPHILS # (AUTO) 0.1 K/uL (0.0-0.2); BASOPHILS % (AUTO) 1.2 % (0.0-2.0); EOSINOPHILS # (AUTO) 0.1 K/uL (0.0-0.7); HEMATOCRIT 34 % (33-45); HEMOGLOBIN 10.4 g/dL (11.5-14.8); LYMPHOCYTES # (AUTO) 1.4 K/uL (0.8-4.8); LYMPHOCYTES % (AUTO) 13.5 % (20.0-44.0); MEAN CORPUSCULAR HEMOGLOBIN 22 PG (26.0-33.0); MEAN CORPUSCULAR HGB CONC 31 g/dl (31.0-36.0); MEAN CORPUSCULAR VOLUME 70 fL (82-100); MONOCYTES # (AUTO) 0.9 K/uL (0.1-1.30); MONOCYTES % (AUTO) 8.5 % (2.0-12.0); NEUTROPHILS # (AUTO) 7.7 K/uL (1.8-8.9); NEUTROPHILS % (AUTO) 75.8 % (43.0-81.0); PLATELET COUNT (AUTO) 293 K/uL (150-450); RED BLOOD CELL COUNT(AUTO) 4.79 MIL/uL (4.0-5.2); RED CELL DISTRIBUTION WIDTH 22.7 % (11.5-15.0); WHITE BLOOD COUNT (AUTO) 10.2 K/uL (4.3-11.0)
[2023-11-19] MEDS: KETOROLAC TROMETHAMINE INJ 30 MG/ML VIAL IV ONE (22:06)
[2023-11-19 22:38] LABS: ALANINE AMINOTRANSFERASE 33 U/L (12-78); ALBUMIN 3.4 g/dL (3.4-5.0); ALKALINE PHOSPHATASE 97 U/L (46-116); ASPARTATE AMINOTRANSFERASE 62 U/L (15-37); BILIRUBIN,DIRECT 0.2 mg/dL (0.0-0.2); BILIRUBIN,TOTAL 0.7 mg/dL (0.2-1.0); CALCIUM, SERUM 9.7 mg/dL (8.5-10.1); CARBON DIOXIDE 26 mmol/L (21-32); CHLORIDE 99 mmol/L (98-107); CREATININE 0.4 mg/dL (0.6-1.3); GLUCOSE 114 mg/dL (74-106); POTASSIUM 3.6 mmol/L (3.5-5.1); SODIUM SERUM 138 mmol/L (136-145); UREA NITROGEN, BLOOD 9 mg/dL (7-18)
[2023-11-19 22:42] LABS: LIPASE > 375 U/L (16-77)
[2023-11-19] MEDS ORDERED: HYDROMORPHONE 1 MG/1 ML DISP.SYRIN ONE (22:49)
[2023-11-19] MEDS: HYDROMORPHONE INJ 2 MG/ML DISP.SYRIN IV ONE (22:55)
[2023-11-19] MEDS ORDERED: MAGNESIUM HYDROXIDE 30 ML UDC PO PRN (23:30)
[2023-11-19] MEDS ORDERED: IV NS 0.9% 1,000 ML IV SCH (23:30)
[2023-11-19] MEDS ORDERED: ONDANSETRON HCL/PF 4 MG/2 ML VIAL IVP PRN (23:30)
[2023-11-19] MEDS ORDERED: MAG HYDROX/AL HYDROX/SIMETH 30 ML UDC PO PRN (23:30)
[2023-11-19] MEDS ORDERED: ACETAMINOPHEN 325 MG TABLET PO PRN (23:30)
[2023-11-19] MEDS ORDERED: Z GUARD REMEDY 4 OZ OINT TP PRN (23:30)
[2023-11-20] MEDS: IV LR 1000 ML 1,000 ML IV SCH (00:17)
[2023-11-20] MEDS: IV LR 1000 ML 1,000 ML IV ONE (00:17)
[2023-11-20] MEDS: HYDROMORPHONE 1 MG/1 ML DISP.SYRIN IV PRN ×2 (00:48→08:21)
[2023-11-20 01:18] VITALS: BP 132/94; TEMP 98.1; O2SAT 96
[2023-11-20 06:46] LABS: BASOPHILS # (AUTO) 0.1 K/uL (0.0-0.2); BASOPHILS % (AUTO) 1.3 % (0.0-2.0); EOSINOPHILS # (AUTO) 0.1 K/uL (0.0-0.7); EOSINOPHILS % (AUTO) 2.3 % (0.0-6.0); HEMATOCRIT 29 % (33-45); HEMOGLOBIN 8.9 g/dL (11.5-14.8); LYMPHOCYTES # (AUTO) 1.5 K/uL (0.8-4.8); LYMPHOCYTES % (AUTO) 26.5 % (20.0-44.0); MEAN CORPUSCULAR HEMOGLOBIN 22 PG (26.0-33.0); MEAN CORPUSCULAR HGB CONC 31 g/dl (31.0-36.0); MEAN CORPUSCULAR VOLUME 71 fL (82-100); MONOCYTES # (AUTO) 0.7 K/uL (0.1-1.30); MONOCYTES % (AUTO) 11.8 % (2.0-12.0); NEUTROPHILS # (AUTO) 3.2 K/uL (1.8-8.9); NEUTROPHILS % (AUTO) 58.1 % (43.0-81.0); PLATELET COUNT (AUTO) 208 K/uL (150-450); RED BLOOD CELL COUNT(AUTO) 4.08 MIL/uL (4.0-5.2); RED CELL DISTRIBUTION WIDTH 22.5 % (11.5-15.0); WHITE BLOOD COUNT (AUTO) 5.6 K/uL (4.3-11.0)
[2023-11-20 07:00] VITALS: BP 120/90; TEMP 97.7; O2SAT 98
[2023-11-20 07:04] LABS: ALANINE AMINOTRANSFERASE 24 U/L (12-78); ALBUMIN 2.5 g/dL (3.4-5.0); ALKALINE PHOSPHATASE 72 U/L (46-116); ASPARTATE AMINOTRANSFERASE 37 U/L (15-37); BILIRUBIN,DIRECT 0.2 mg/dL (0.0-0.2); BILIRUBIN,TOTAL 0.6 mg/dL (0.2-1.0); CALCIUM, SERUM 8.6 mg/dL (8.5-10.1); CARBON DIOXIDE 25 mmol/L (21-32); CHLORIDE 103 mmol/L (98-107); CREATININE 0.3 mg/dL (0.6-1.3); GLUCOSE 95 mg/dL (74-106); MAGNESIUM 1.9 mg/dL (1.8-2.4); PHOSPHORUS 3.5 mg/dL (2.5-4.9); POTASSIUM 3.4 mmol/L (3.5-5.1); SODIUM SERUM 137 mmol/L (136-145); TOTAL PROTEIN, SERUM 6.1 g/dL (6.4-8.2); UREA NITROGEN, BLOOD 8 mg/dL (7-18)
[2023-11-20 07:23] LABS: LIPASE > 375 U/L (16-77)
[2023-11-20] MEDS ORDERED: OXYC1TAB8 PO (07:48)
[2023-11-20] MEDS: IV LR 1000 ML 1,000 ML IV PRN (08:25)
[2023-11-20] MEDS: PANTOPRAZOLE 40 MG VIAL IV SCH (08:38)
[2023-11-20] MEDS: POTASSIUM CHLORIDE 20 MEQ POWDER PACKET PO ONE (08:39)
[2023-11-20] MEDS: IV NS 0.9% 1,000 ML IV PRN (09:58)
[2023-11-20] MEDS ORDERED: IV NS 0.9% 1,000 ML BAG IV PRN (10:00)
[2023-11-20] MEDS: HYDROCODONE/APAP 10/325MG TABLET PO PRN (13:47)
[2023-11-20 16:00] VITALS: BP 133/92; TEMP 97.9; O2SAT 99
[2023-11-20 20:00] VITALS: BP 120/86; TEMP 98.2; O2SAT 96
[2023-11-20 20:11] VITALS: BP 120/86; TEMP 98.2; O2SAT 96
[2023-11-21 06:46] LABS: BASOPHILS # (AUTO) 0.1 K/uL (0.0-0.2); BASOPHILS % (AUTO) 2.7 % (0.0-2.0); EOSINOPHILS # (AUTO) 0.2 K/uL (0.0-0.7); EOSINOPHILS % (AUTO) 4.8 % (0.0-6.0); HEMATOCRIT 30 % (33-45); HEMOGLOBIN 9.3 g/dL (11.5-14.8); LYMPHOCYTES # (AUTO) 1.3 K/uL (0.8-4.8); LYMPHOCYTES % (AUTO) 25.8 % (20.0-44.0); MEAN CORPUSCULAR HEMOGLOBIN 22 PG (26.0-33.0); MEAN CORPUSCULAR HGB CONC 31 g/dl (31.0-36.0); MEAN CORPUSCULAR VOLUME 73 fL (82-100); MONOCYTES # (AUTO) 0.5 K/uL (0.1-1.30); MONOCYTES % (AUTO) 9.3 % (2.0-12.0); NEUTROPHILS # (AUTO) 2.9 K/uL (1.8-8.9); NEUTROPHILS % (AUTO) 57.4 % (43.0-81.0); PLATELET COUNT (AUTO) 212 K/uL (150-450); RED BLOOD CELL COUNT(AUTO) 4.16 MIL/uL (4.0-5.2); RED CELL DISTRIBUTION WIDTH 23.2 % (11.5-15.0)
[2023-11-21 07:00] LABS: CALCIUM, SERUM 7.8 mg/dL (8.5-10.1); CREATININE 0.3 mg/dL (0.6-1.3); MAGNESIUM 1.8 mg/dL (1.8-2.4); POTASSIUM 3.2 mmol/L (3.5-5.1)
[2023-11-21 08:00] VITALS: BP 119/78; TEMP 98.7; O2SAT 97
[2023-11-21 08:20] LABS: APPEARANCE,URINE CLEAR (CLEAR); BILIRUBIN,URINE NEGATIVE (NEGATIVE); BLOOD, URINE 3+ Ery/uL (NEGATIVE); COLOR,URINE YELLOW (YELLOW); KETONES,URINE NEGATIVE (NEGATIVE); LEUKOCYTE ESTERASE ,URINE NEGATIVE (NEGATIVE); NITRITE, URINE NEGATIVE (NEGATIVE); PROTEIN,URINE NEGATIVE (NEGATIVE); UGLUCOSE NEGATIVE (NEGATIVE); UROBILINOGEN,URINE 0.2 EU/dL (0.2)
[2023-11-21 08:22] LABS: ADD URINE CULTURE NO; BACTERIA,URINE None seen /HPF (None Seen); PREGNANCY TEST URINE QUAL NEGATIVE (NEGATIVE); SQUAMOUS EPITHELIAL CELL,UR Rare /HPF (None Seen); WBC,URINE 0-2 /HPF (0-3)
[2023-11-21] MEDS: POTASSIUM CHLORIDE 20 MEQ TAB.PRT.SR PO SCH (10:34)
[2023-11-21 16:00] VITALS: BP 117/81; TEMP 98; O2SAT 97
[2023-11-21 20:00] VITALS: BP 139/85; TEMP 97.9; O2SAT 99
[2023-11-22 07:05] LABS: BASOPHILS # (AUTO) 0.1 K/uL (0.0-0.2); BASOPHILS % (AUTO) 1.8 % (0.0-2.0); EOSINOPHILS # (AUTO) 0.3 K/uL (0.0-0.7); EOSINOPHILS % (AUTO) 6.4 % (0.0-6.0); HEMATOCRIT 32 % (33-45); HEMOGLOBIN 9.6 g/dL (11.5-14.8); LYMPHOCYTES # (AUTO) 1.3 K/uL (0.8-4.8); LYMPHOCYTES % (AUTO) 27.2 % (20.0-44.0); MEAN CORPUSCULAR HEMOGLOBIN 22 PG (26.0-33.0); MEAN CORPUSCULAR HGB CONC 30 g/dl (31.0-36.0); MEAN CORPUSCULAR VOLUME 73 fL (82-100); MONOCYTES # (AUTO) 0.6 K/uL (0.1-1.30); MONOCYTES % (AUTO) 11.7 % (2.0-12.0); NEUTROPHILS # (AUTO) 2.5 K/uL (1.8-8.9); NEUTROPHILS % (AUTO) 52.9 % (43.0-81.0); PLATELET COUNT (AUTO) 232 K/uL (150-450); RED BLOOD CELL COUNT(AUTO) 4.32 MIL/uL (4.0-5.2); RED CELL DISTRIBUTION WIDTH 22.9 % (11.5-15.0); WHITE BLOOD COUNT (AUTO) 4.7 K/uL (4.3-11.0)
[2023-11-22 07:24] LABS: CALCIUM, SERUM 8.7 mg/dL (8.5-10.1); CREATININE 0.3 mg/dL (0.6-1.3); MAGNESIUM 1.9 mg/dL (1.8-2.4)
[2023-11-22 07:30] VITALS: BP 133/84; TEMP 98.2; O2SAT 97
[2023-11-22 08:13] LABS: ALBUMIN 2.6 g/dL (3.4-5.0); BILIRUBIN,DIRECT 0.1 mg/dL (0.0-0.2); BILIRUBIN,TOTAL 0.4 mg/dL (0.2-1.0); TOTAL PROTEIN, SERUM 6.5 g/dL (6.4-8.2)
[2023-11-22 08:17] LABS: LYMPHOCYTES % (MANUAL) 30 % (16-48); NEUTROPHILS % (MANUAL) 53 (42-76)
[2023-11-22 08:18] LABS: ANISOCYTOSIS 1+; EOSINOPHILS % (MANUAL) 5 % (0-4); HYPOCHROMASIA 1+; MONOCYTES % (MANUAL) 12 % (0-11.0); PLATELET ESTIMATE ADEQUATE; SMUDGE CELLS FEW
[2023-11-22] MEDS: PANTOPRAZOLE 40 MG TABLET.DR PO SCH (08:38)
[2023-11-22] MEDS: POTASSIUM CHLORIDE 20 MEQ TAB.PRT.SR PO SCH (09:21)
[2023-11-22] MEDS ORDERED: IV NS 0.9% 100 ML IV PRN (10:30)
[2023-11-22] MEDS: KETOROLAC TROMETHAMINE INJ 30 MG/ML VIAL IM PRN (16:21)
[2023-11-22 16:31] VITALS: BP 141/93; TEMP 97.9; O2SAT 100
[2023-11-22] MEDS: IV NS 0.9% 1,000 ML IV PRN (18:43)
[2023-11-22 20:00] VITALS: BP 142/95; TEMP 97.3; O2SAT 100
[2023-11-22 20:08] VITALS: BP 142/95; TEMP 97.3; O2SAT 100
[2023-11-23 07:05] LABS: BASOPHILS # (AUTO) 0.1 K/uL (0.0-0.2); BASOPHILS % (AUTO) 1.7 % (0.0-2.0); EOSINOPHILS # (AUTO) 0.2 K/uL (0.0-0.7); EOSINOPHILS % (AUTO) 5.8 % (0.0-6.0); HEMATOCRIT 31 % (33-45); HEMOGLOBIN 9.3 g/dL (11.5-14.8); LYMPHOCYTES % (AUTO) 25.4 % (20.0-44.0); MEAN CORPUSCULAR HEMOGLOBIN 22 PG (26.0-33.0); MEAN CORPUSCULAR HGB CONC 30 g/dl (31.0-36.0); MEAN CORPUSCULAR VOLUME 72 fL (82-100); MONOCYTES # (AUTO) 0.6 K/uL (0.1-1.30); MONOCYTES % (AUTO) 13.6 % (2.0-12.0); NEUTROPHILS # (AUTO) 2.2 K/uL (1.8-8.9); NEUTROPHILS % (AUTO) 53.5 % (43.0-81.0); PLATELET COUNT (AUTO) 284 K/uL (150-450); RED BLOOD CELL COUNT(AUTO) 4.23 MIL/uL (4.0-5.2); RED CELL DISTRIBUTION WIDTH 22.7 % (11.5-15.0); WHITE BLOOD COUNT (AUTO) 4.1 K/uL (4.3-11.0)
[2023-11-23 07:13] LABS: CALCIUM, SERUM 8.4 mg/dL (8.5-10.1); CREATININE 0.2 mg/dL (0.6-1.3); MAGNESIUM 1.7 mg/dL (1.8-2.4); PHOSPHORUS 3.5 mg/dL (2.5-4.9); POTASSIUM 3.4 mmol/L (3.5-5.1)
[2023-11-23 08:22] VITALS: BP 130/90; TEMP 98.2; O2SAT 95
[2023-11-23] MEDS: MAGNESIUM OXIDE 400 MG TABLET PO ONE (09:24)
[2023-11-23] MEDS: POTASSIUM CHLORIDE 20 MEQ TAB.PRT.SR PO SCH (11:18)
[2023-11-23] MEDS ORDERED: HYDR-3972 PO (18:57)
[2023-11-23] MEDS ORDERED: ONDA4TAB11 PO (18:57)
[2023-11-23] MEDS ORDERED: IBUP-1490 PO (18:57)
[2023-11-23] MEDS ORDERED: OXYC-128 PO (20:00)
== END 2023-11-23 14:40 | disposition home or self-care (01) | DRG 282 ==
LOC: ER 21:16 → MED 23:31
PROVIDERS: ATTEND Student in an Organized Health Care Education/Training Program
DX: K85.20 Alcohol induced acute pancreatitis without necrosis or infection (principal); E44.0 Moderate protein-calorie malnutrition; D64.9 Anemia, unspecified; F10.10 Alcohol abuse, uncomplicated; E87.6 Hypokalemia; Y90.9 Presence of alcohol in blood, level not specified; K86.2 Cyst of pancreas; Z88.8 Allergy status to other drugs, medicaments and biological substances; R63.0 Anorexia; Z68.20 Body mass index [BMI] 20.0-20.9, adult; E83.42 Hypomagnesemia; Z82.49 Family history of ischemic heart disease and other diseases of the circulatory system
CPT/HCPCS: 36415; 71045-TC; 80048-TC; 80076-TC; 81001; 83690-TC; 83735-TC; 84100-TC; 84703-TC; 85025-TC; A4223; C9113; G0378; J1170; J1885; J2270; J7030; J7120

== ENCOUNTER 2023-11-23 17:42 | Emergency (ER) | payer MEDICAID ==
[~2023-11-23] VITALS: Ht 160 cm; Wt 47.6 kg
[~2023-11-23 17:42] MED LIST changes: +OXYC1TAB8 PO
[2023-11-23] MEDS ORDERED: IBUP-1490 PO (18:57)
[2023-11-23] MEDS ORDERED: ONDA4TAB11 PO (18:57)
[2023-11-23] MEDS ORDERED: HYDR-3972 PO (18:57)
[2023-11-23 19:02] VITALS: BP 135/99; TEMP 98.3; O2SAT 99
[2023-11-23] MEDS ORDERED: OXYC-128 PO (20:00)
== END 2023-11-23 19:03 | disposition home or self-care (01) ==
LOC: ER 17:42
DX: K86.0 Alcohol-induced chronic pancreatitis (principal); R10.13 Epigastric pain; R11.0 Nausea; Z86.59 Personal history of other mental and behavioral disorders; Z88.8 Allergy status to other drugs, medicaments and biological substances

== ENCOUNTER 2023-11-27 08:43 | Emergency (ER) | payer MEDICAID, OTHER ==
[~2023-11-27] VITALS: Ht 160 cm; Wt 47.2 kg
[~2023-11-27 08:43] MED LIST changes: +IBUP-1490 PO; -NITR100C11 PO; +ONDA4TAB11 PO; +OXYC-128 PO
[2023-11-27 09:22] LABS: BASOPHILS # (AUTO) 0.1 K/uL (0.0-0.2); BASOPHILS % (AUTO) 0.8 % (0.0-2.0); EOSINOPHILS # (AUTO) 0.1 K/uL (0.0-0.7); EOSINOPHILS % (AUTO) 0.8 % (0.0-6.0); HEMATOCRIT 34 % (33-45); HEMOGLOBIN 10.3 g/dL (11.5-14.8); LYMPHOCYTES # (AUTO) 1.3 K/uL (0.8-4.8); LYMPHOCYTES % (AUTO) 17.7 % (20.0-44.0); MEAN CORPUSCULAR HEMOGLOBIN 21 PG (26.0-33.0); MEAN CORPUSCULAR HGB CONC 30 g/dl (31.0-36.0); MEAN CORPUSCULAR VOLUME 71 fL (82-100); MONOCYTES # (AUTO) 1.2 K/uL (0.1-1.30); MONOCYTES % (AUTO) 15.7 % (2.0-12.0); NEUTROPHILS # (AUTO) 4.9 K/uL (1.8-8.9); PLATELET COUNT (AUTO) 432 K/uL (150-450); RED BLOOD CELL COUNT(AUTO) 4.78 MIL/uL (4.0-5.2); RED CELL DISTRIBUTION WIDTH 22.7 % (11.5-15.0); WHITE BLOOD COUNT (AUTO) 7.6 K/uL (4.3-11.0)
[2023-11-27 09:31] LABS: CALCIUM, SERUM 9.2 mg/dL (8.5-10.1); CREATININE 0.5 mg/dL (0.6-1.3); POTASSIUM 3.6 mmol/L (3.5-5.1)
[2023-11-27] MEDS: ONDANSETRON HCL/PF 4 MG/2 ML VIAL IV ONE (09:32)
[2023-11-27] MEDS ORDERED: LIDOCAINE VISCOUS 2% UD 15 ML UDC ONE (09:34)
[2023-11-27] MEDS ORDERED: MORPHINE SULFATE INJ 4 MG/ML DISP.SYRIN ONE ×2 (09:34→11:32)
[2023-11-27] MEDS ORDERED: FAMOTIDINE/PF INJ 20 MG/2 ML VIAL IV ONE (09:35)
[2023-11-27] MEDS: PANTOPRAZOLE 40 MG VIAL IV ONE (09:36)
[2023-11-27 09:39] LABS: ALBUMIN 3.2 g/dL (3.4-5.0); BILIRUBIN,DIRECT 0.2 mg/dL (0.0-0.2); BILIRUBIN,TOTAL 0.6 mg/dL (0.2-1.0); TOTAL PROTEIN, SERUM 8.1 g/dL (6.4-8.2)
[2023-11-27] MEDS ORDERED: PANTOPRAZOLE 40 MG VIAL ONE (09:39)
[2023-11-27] MEDS: IV NS 0.9% 1,000 ML BAG IV ONE (09:45)
[2023-11-27] MEDS: MORPHINE SULFATE INJ 2 MG/ML DISP.SYRIN IV ONE (09:47)
[2023-11-27 09:52] LABS: APPEARANCE,URINE CLEAR (CLEAR); BILIRUBIN,URINE 1+ (NEGATIVE); BLOOD, URINE NEGATIVE Ery/uL (NEGATIVE); COLOR,URINE DARK YELLOW (YELLOW); KETONES,URINE NEGATIVE (NEGATIVE); LEUKOCYTE ESTERASE ,URINE TRACE (NEGATIVE); NITRITE, URINE NEGATIVE (NEGATIVE); PROTEIN,URINE TRACE mg/dl (NEGATIVE); UGLUCOSE NEGATIVE (NEGATIVE)
[2023-11-27] MEDS: LIDOCAINE VISCOUS 2% UD 15 ML UDC MM ONE (09:54)
[2023-11-27] MEDS: MAG HYDROX/AL HYDROX/SIMETH 30 ML UDC PO ONE (09:54)
[2023-11-27 10:01] LABS: PREGNANCY TEST URINE QUAL NEGATIVE (NEGATIVE)
[2023-11-27 10:02] LABS: ADD URINE CULTURE NO; BACTERIA,URINE Rare /HPF (None Seen); SQUAMOUS EPITHELIAL CELL,UR Few /HPF (None Seen)
[2023-11-27] MEDS: MORPHINE SULFATE INJ 10 MG/ML DISP.SYRIN IV ONE (11:30)
[2023-11-27 12:59] VITALS: BP 121/69; TEMP 98.5; O2SAT 100
== END 2023-11-27 13:01 | disposition home or self-care (01) ==
LOC: ER 09:00
DX: K86.1 Other chronic pancreatitis (principal); R11.0 Nausea; Z88.8 Allergy status to other drugs, medicaments and biological substances
CPT/HCPCS: 99285; 96374; 76705; 96361; 96375 ×2; 96376; 85025; 80048; 83690; 80076; 84703; 81001; 36415; 82962; J2270 ×2; J2405; J7030; C9113; J3490

== ENCOUNTER 2024-01-06 21:58 | Inpatient (IN) | payer MEDICAID, OTHER ==
[~2024-01-06] VITALS: Ht 160 cm; Wt 58.5 kg
[2024-01-06] MEDS ORDERED: ONDANSETRON HCL/PF 4 MG/2 ML VIAL ONE (23:39)
[2024-01-06] MEDS ORDERED: KETOROLAC TROMETHAMINE 15 MG/ML VIAL ONE (23:39)
[2024-01-06] MEDS ORDERED: FAMOTIDINE/PF INJ 20 MG/2 ML VIAL IV ONE (23:40)
[2024-01-06] MEDS: FAMOTIDINE/PF INJ 20 MG/2 ML VIAL IV ONE (23:48)
[2024-01-06] MEDS: IV NS 0.9% 1,000 ML BAG IV ONE (23:48)
[2024-01-06] MEDS: KETOROLAC TROMETHAMINE 15 MG/ML VIAL IV ONE (23:48)
[2024-01-06] MEDS: ONDANSETRON HCL/PF 4 MG/2 ML VIAL IVP ONE (23:49)
[2024-01-07 00:02] LABS: BASOPHILS % (AUTO) 1.2 % (0.0-2.0); EOSINOPHILS % (AUTO) 0.9 % (0.0-6.0); HEMATOCRIT 36 % (33-45); HEMOGLOBIN 10.8 g/dL (11.5-14.8); LYMPHOCYTES % (AUTO) 24.2 % (20.0-44.0); MEAN CORPUSCULAR HEMOGLOBIN 21 PG (26.0-33.0); MEAN CORPUSCULAR HGB CONC 30 g/dl (31.0-36.0); MEAN CORPUSCULAR VOLUME 69 fL (82-100); MONOCYTES % (AUTO) 10.8 % (2.0-12.0); NEUTROPHILS % (AUTO) 62.9 % (43.0-81.0); PLATELET COUNT (AUTO) 187 K/uL (150-450); RED BLOOD CELL COUNT(AUTO) 5.14 MIL/uL (4.0-5.2); RED CELL DISTRIBUTION WIDTH 22.5 % (11.5-15.0); WHITE BLOOD COUNT (AUTO) 7.3 K/uL (4.3-11.0)
[2024-01-07 00:03] LABS: BASOPHILS # (AUTO) 0.1 K/uL (0.0-0.2); EOSINOPHILS # (AUTO) 0.1 K/uL (0.0-0.7); LYMPHOCYTES # (AUTO) 1.8 K/uL (0.8-4.8); MONOCYTES # (AUTO) 0.8 K/uL (0.1-1.30); NEUTROPHILS # (AUTO) 4.6 K/uL (1.8-8.9)
[2024-01-07] MEDS ORDERED: MORPHINE SULFATE INJ 2 MG/ML DISP.SYRIN ONE ×2 (00:09→01:22)
[2024-01-07] MEDS: MORPHINE SULFATE INJ 2 MG/ML DISP.SYRIN IV ONE ×2 (00:14→01:25)
[2024-01-07 00:23] LABS: CALCIUM, SERUM 8.6 mg/dL (8.5-10.1); CREATININE 0.3 mg/dL (0.6-1.3); POTASSIUM 2.9 mmol/L (3.5-5.1)
[2024-01-07 00:29] LABS: ALBUMIN 3.4 g/dL (3.4-5.0); BILIRUBIN,DIRECT 0.3 mg/dL (0.0-0.2); BILIRUBIN,TOTAL 0.8 mg/dL (0.2-1.0); TOTAL PROTEIN, SERUM 7.9 g/dL (6.4-8.2)
[2024-01-07] MEDS ORDERED: POTASSIUM CL. PREMIX PERIPHER. 100 ML ONE (00:57)
[2024-01-07] MEDS: POTASSIUM CL. PREMIX PERIPHER. 50 ML IV SCH (01:07)
[2024-01-07] MEDS ORDERED: POTASSIUM CL. PREMIX PERIPHER. 50 ML ONE (02:09)
[2024-01-07] MEDS ORDERED: ACETAMINOPHEN 325 MG TABLET PO PRN (02:30)
[2024-01-07] MEDS ORDERED: hydrALAZINE HCL IV 20 MG VIAL IV PRN (02:30)
[2024-01-07 03:48] LABS: APPEARANCE,URINE CLEAR (CLEAR); BILIRUBIN,URINE 1+ (NEGATIVE); BLOOD, URINE NEGATIVE Ery/uL (NEGATIVE); COLOR,URINE DARK YELLOW (YELLOW); KETONES,URINE 2+ mg/dL (NEGATIVE); LEUKOCYTE ESTERASE ,URINE NEGATIVE (NEGATIVE); NITRITE, URINE NEGATIVE (NEGATIVE); PREGNANCY TEST URINE QUAL NEGATIVE (NEGATIVE); PROTEIN,URINE TRACE mg/dl (NEGATIVE); UGLUCOSE NEGATIVE (NEGATIVE)
[2024-01-07 03:49] LABS: ADD URINE CULTURE NO; BACTERIA,URINE Rare /HPF (None Seen); SQUAMOUS EPITHELIAL CELL,UR Rare /HPF (None Seen); WBC,URINE 0-2 /HPF (0-3)
[2024-01-07] MEDS: IV LR 1000 ML 1,000 ML IV SCH (04:05)
[2024-01-07] MEDS: MORPHINE SULFATE INJ 2 MG/ML DISP.SYRIN IV PRN ×2 (05:00→12:24)
[2024-01-07] MEDS: ONDANSETRON HCL/PF 4 MG/2 ML VIAL IVP PRN (07:59)
[2024-01-07 08:00] VITALS: BP 124/79; TEMP 97.9; O2SAT 95
[2024-01-07] MEDS: HEPARIN SODIUM, PORCINE 5000 UNITS/1 ML VIAL SQ SCH (08:41)
[2024-01-07 15:25] LABS: CALCIUM, SERUM 7.8 mg/dL (8.5-10.1); CREATININE 0.4 mg/dL (0.6-1.3); POTASSIUM 3.8 mmol/L (3.5-5.1)
[2024-01-07] MEDS: PANTOPRAZOLE 40 MG VIAL IV SCH (17:59)
[2024-01-07 20:00] VITALS: BP 134/92; TEMP 98.2; O2SAT 94
[2024-01-07 20:24] VITALS: BP 134/92; TEMP 98.2; O2SAT 94
[2024-01-07] MEDS: TRAZODONE 50 MG TABLET PO PRN (22:42)
[2024-01-08 06:06] LABS: BASOPHILS % (AUTO) 0.9 % (0.0-2.0); EOSINOPHILS # (AUTO) 0.2 K/uL (0.0-0.7); EOSINOPHILS % (AUTO) 3.7 % (0.0-6.0); HEMATOCRIT 29 % (33-45); HEMOGLOBIN 8.6 g/dL (11.5-14.8); LYMPHOCYTES # (AUTO) 1.2 K/uL (0.8-4.8); LYMPHOCYTES % (AUTO) 25.5 % (20.0-44.0); MEAN CORPUSCULAR HEMOGLOBIN 21 PG (26.0-33.0); MEAN CORPUSCULAR HGB CONC 30 g/dl (31.0-36.0); MEAN CORPUSCULAR VOLUME 70 fL (82-100); MONOCYTES # (AUTO) 0.5 K/uL (0.1-1.30); MONOCYTES % (AUTO) 10.5 % (2.0-12.0); NEUTROPHILS # (AUTO) 2.8 K/uL (1.8-8.9); NEUTROPHILS % (AUTO) 59.4 % (43.0-81.0); PLATELET COUNT (AUTO) 136 K/uL (150-450); RED BLOOD CELL COUNT(AUTO) 4.09 MIL/uL (4.0-5.2); RED CELL DISTRIBUTION WIDTH 22.5 % (11.5-15.0); WHITE BLOOD COUNT (AUTO) 4.8 K/uL (4.3-11.0)
[2024-01-08 06:27] LABS: ALBUMIN 2.3 g/dL (3.4-5.0); BILIRUBIN,TOTAL 0.6 mg/dL (0.2-1.0); CALCIUM, SERUM 8.1 mg/dL (8.5-10.1); CREATININE 0.2 mg/dL (0.6-1.3); MAGNESIUM 1.6 mg/dL (1.8-2.4); PHOSPHORUS 2.3 mg/dL (2.5-4.9); POTASSIUM 3.3 mmol/L (3.5-5.1); TOTAL PROTEIN, SERUM 5.8 g/dL (6.4-8.2)
[2024-01-08 08:00] VITALS: BP 118/91; TEMP 98.4; O2SAT 95
[2024-01-08 08:20] VITALS: BP 152/99; TEMP 98.2; O2SAT 100
[2024-01-08] MEDS: PANTOPRAZOLE 40 MG TABLET.DR PO SCH (08:37)
[2024-01-08] MEDS: MAGNESIUM OXIDE 400 MG TABLET PO ONE (10:13)
[2024-01-08] MEDS: POTASSIUM CHLORIDE 20 MEQ TAB.PRT.SR PO SCH (10:13)
[2024-01-08] MEDS: KETOROLAC TROMETHAMINE INJ 30 MG/ML VIAL IM PRN (13:58)
[2024-01-08] MEDS: K PHOS NEUTRAL 250 MG TABLET PO ONE (15:24)
[2024-01-08 16:09] VITALS: BP 139/89; TEMP 98.6; O2SAT 97
[2024-01-09 02:11] LABS: BASOPHILS % (AUTO) 0.4 % (0.0-2.0); EOSINOPHILS # (AUTO) 0.1 K/uL (0.0-0.7); EOSINOPHILS % (AUTO) 2.1 % (0.0-6.0); HEMATOCRIT 29 % (33-45); HEMOGLOBIN 8.6 g/dL (11.5-14.8); LYMPHOCYTES # (AUTO) 1.1 K/uL (0.8-4.8); MEAN CORPUSCULAR HEMOGLOBIN 21 PG (26.0-33.0); MEAN CORPUSCULAR HGB CONC 30 g/dl (31.0-36.0); MEAN CORPUSCULAR VOLUME 70 fL (82-100); MONOCYTES # (AUTO) 0.6 K/uL (0.1-1.30); NEUTROPHILS # (AUTO) 3.1 K/uL (1.8-8.9); NEUTROPHILS % (AUTO) 63.5 % (43.0-81.0); PLATELET COUNT (AUTO) 160 K/uL (150-450); RED BLOOD CELL COUNT(AUTO) 4.09 MIL/uL (4.0-5.2); RED CELL DISTRIBUTION WIDTH 23.1 % (11.5-15.0); WHITE BLOOD COUNT (AUTO) 4.9 K/uL (4.3-11.0)
[2024-01-09 02:28] LABS: ALBUMIN 2.5 g/dL (3.4-5.0); BILIRUBIN,DIRECT 0.2 mg/dL (0.0-0.2); BILIRUBIN,TOTAL 0.5 mg/dL (0.2-1.0); TOTAL PROTEIN, SERUM 6.1 g/dL (6.4-8.2)
[2024-01-09 02:32] LABS: CALCIUM, SERUM 8.3 mg/dL (8.5-10.1); CREATININE 0.3 mg/dL (0.6-1.3); MAGNESIUM 1.6 mg/dL (1.8-2.4); PHOSPHORUS 2.9 mg/dL (2.5-4.9); POTASSIUM 3.2 mmol/L (3.5-5.1)
[2024-01-09 08:00] VITALS: BP 129/89; TEMP 98.6; O2SAT 97
[2024-01-09] MEDS ORDERED: KETOROLAC TROMETHAMINE INJ 30 MG/ML VIAL IV PRN (10:30)
[2024-01-09] MEDS: POTASSIUM CHLORIDE 20 MEQ TAB.PRT.SR PO ONE (12:03)
[2024-01-09] MEDS: MAGNESIUM OXIDE 400 MG TABLET PO ONE (12:03)
[2024-01-09] MEDS: HYDROMORPHONE 1 MG/1 ML DISP.SYRIN IV PRN (18:00)
[2024-01-09 20:00] VITALS: BP 143/105; TEMP 98.2; O2SAT 98
[2024-01-09] MEDS: HYDROCODONE/APAP 10/325MG TABLET PO PRN (21:07)
[2024-01-10] VITALS: BP 137/99; O2SAT 95
[2024-01-10 06:47] LABS: BASOPHILS % (AUTO) 1.1 % (0.0-2.0); EOSINOPHILS # (AUTO) 0.1 K/uL (0.0-0.7); EOSINOPHILS % (AUTO) 2.8 % (0.0-6.0); HEMATOCRIT 30 % (33-45); HEMOGLOBIN 8.9 g/dL (11.5-14.8); LYMPHOCYTES % (AUTO) 22.1 % (20.0-44.0); MEAN CORPUSCULAR HEMOGLOBIN 21 PG (26.0-33.0); MEAN CORPUSCULAR HGB CONC 30 g/dl (31.0-36.0); MEAN CORPUSCULAR VOLUME 70 fL (82-100); MONOCYTES # (AUTO) 0.8 K/uL (0.1-1.30); MONOCYTES % (AUTO) 17.6 % (2.0-12.0); NEUTROPHILS # (AUTO) 2.5 K/uL (1.8-8.9); NEUTROPHILS % (AUTO) 56.4 % (43.0-81.0); PLATELET COUNT (AUTO) 192 K/uL (150-450); RED CELL DISTRIBUTION WIDTH 22.8 % (11.5-15.0); WHITE BLOOD COUNT (AUTO) 4.4 K/uL (4.3-11.0)
[2024-01-10 07:00] LABS: CALCIUM, SERUM 8.6 mg/dL (8.5-10.1); CREATININE 0.2 mg/dL (0.6-1.3); MAGNESIUM 1.6 mg/dL (1.8-2.4); POTASSIUM 3.3 mmol/L (3.5-5.1)
[2024-01-10 07:05] LABS: ALANINE AMINOTRANSFERASE 29 U/L (12-78); ALBUMIN 2.5 g/dL (3.4-5.0); ALKALINE PHOSPHATASE 82 U/L (46-116); ASPARTATE AMINOTRANSFERASE 56 U/L (15-37); BILIRUBIN,DIRECT 0.2 mg/dL (0.0-0.2); BILIRUBIN,TOTAL 0.7 mg/dL (0.2-1.0); TOTAL PROTEIN, SERUM 6.4 g/dL (6.4-8.2)
[2024-01-10 07:06] LABS: LIPASE > 375 U/L (16-77)
[2024-01-10 07:35] LABS: ANISOCYTOSIS 1+; EOSINOPHILS % (MANUAL) 2 % (0-4); LYMPHOCYTES % (MANUAL) 11 % (16-48); MONOCYTES % (MANUAL) 10 % (0-11.0); NEUTROPHILS % (MANUAL) 77 (42-76); PLATELET ESTIMATE ADEQUATE
[2024-01-10 07:36] LABS: OVALOCYTES 1+; TEAR DROP CELLS 1+
[2024-01-10 08:58] VITALS: BP 150/105; TEMP 98.2; O2SAT 96
[2024-01-10] MEDS: POTASSIUM CHLORIDE 20 MEQ TAB.PRT.SR PO SCH (11:49)
[2024-01-10] MEDS: MAGNESIUM OXIDE 400 MG TABLET PO ONE (11:50)
[2024-01-10] MEDS: ESCITALOPRAM OXALATE (10 MG) 10 MG TABLET PO SCH (11:50)
[2024-01-10] MEDS: IV LR 1000 ML 1,000 ML IV PRN (14:05)
[2024-01-10 16:23] VITALS: BP 132/90; TEMP 98.2; O2SAT 97
[2024-01-10 20:00] VITALS: BP 135/88; TEMP 98.8; O2SAT 96
[2024-01-11 07:20] LABS: CALCIUM, SERUM 8.7 mg/dL (8.5-10.1); CREATININE 0.3 mg/dL (0.6-1.3); MAGNESIUM 1.5 mg/dL (1.8-2.4); PHOSPHORUS 3.1 mg/dL (2.5-4.9); POTASSIUM 3.3 mmol/L (3.5-5.1)
[2024-01-11 07:33] LABS: BASOPHILS # (AUTO) 0.1 K/uL (0.0-0.2); BASOPHILS % (AUTO) 2.9 % (0.0-2.0); EOSINOPHILS # (AUTO) 0.2 K/uL (0.0-0.7); EOSINOPHILS % (AUTO) 5.2 % (0.0-6.0); HEMATOCRIT 28 % (33-45); HEMOGLOBIN 8.5 g/dL (11.5-14.8); LYMPHOCYTES # (AUTO) 1.1 K/uL (0.8-4.8); LYMPHOCYTES % (AUTO) 27.6 % (20.0-44.0); MEAN CORPUSCULAR HEMOGLOBIN 22 PG (26.0-33.0); MEAN CORPUSCULAR HGB CONC 31 g/dl (31.0-36.0); MEAN CORPUSCULAR VOLUME 71 fL (82-100); MONOCYTES # (AUTO) 0.9 K/uL (0.1-1.30); MONOCYTES % (AUTO) 21.8 % (2.0-12.0); NEUTROPHILS # (AUTO) 1.7 K/uL (1.8-8.9); NEUTROPHILS % (AUTO) 42.5 % (43.0-81.0); PLATELET COUNT (AUTO) 229 K/uL (150-450); RED BLOOD CELL COUNT(AUTO) 3.93 MIL/uL (4.0-5.2); RED CELL DISTRIBUTION WIDTH 23.6 % (11.5-15.0); WHITE BLOOD COUNT (AUTO) 3.9 K/uL (4.3-11.0)
[2024-01-11 08:00] VITALS: BP 124/85; TEMP 98.2; O2SAT 95
[2024-01-11 08:50] VITALS: BP 149/101; TEMP 97.9; O2SAT 96
[2024-01-11 10:10] LABS: ALBUMIN 2.4 g/dL (3.4-5.0); BILIRUBIN,DIRECT 0.2 mg/dL (0.0-0.2); BILIRUBIN,TOTAL 0.5 mg/dL (0.2-1.0); TOTAL PROTEIN, SERUM 6.1 g/dL (6.4-8.2)
[2024-01-11] MEDS: POTASSIUM CHLORIDE 20 MEQ TAB.PRT.SR PO ONE (12:12)
[2024-01-11] MEDS: MAGNESIUM OXIDE 400 MG TABLET PO ONE (12:55)
[2024-01-11 13:13] LABS: PLATELET ESTIMATE ADEQUATE
[2024-01-11 14:12] LABS: BASOPHILS % (MANUAL) 0 % (0.0-2.0); EOSINOPHILS % (MANUAL) 2 % (0-4); LYMPHOCYTES % (MANUAL) 24 % (16-48); MONOCYTES % (MANUAL) 10 % (0-11.0); NEUTROPHILS % (MANUAL) 64 (42-76)
[2024-01-12 06:29] LABS: BASOPHILS # (AUTO) 0.1 K/uL (0.0-0.2); BASOPHILS % (AUTO) 2.8 % (0.0-2.0); EOSINOPHILS # (AUTO) 0.2 K/uL (0.0-0.7); EOSINOPHILS % (AUTO) 4.3 % (0.0-6.0); HEMATOCRIT 31 % (33-45); HEMOGLOBIN 9.2 g/dL (11.5-14.8); LYMPHOCYTES # (AUTO) 1.5 K/uL (0.8-4.8); LYMPHOCYTES % (AUTO) 38.4 % (20.0-44.0); MEAN CORPUSCULAR HEMOGLOBIN 21 PG (26.0-33.0); MEAN CORPUSCULAR HGB CONC 30 g/dl (31.0-36.0); MEAN CORPUSCULAR VOLUME 72 fL (82-100); MONOCYTES # (AUTO) 0.7 K/uL (0.1-1.30); MONOCYTES % (AUTO) 17.5 % (2.0-12.0); NEUTROPHILS # (AUTO) 1.5 K/uL (1.8-8.9); PLATELET COUNT (AUTO) 289 K/uL (150-450)
[2024-01-12 06:37] LABS: ALANINE AMINOTRANSFERASE 34 U/L (12-78); ALBUMIN 2.7 g/dL (3.4-5.0); ALKALINE PHOSPHATASE 104 U/L (46-116); ASPARTATE AMINOTRANSFERASE 70 U/L (15-37); BILIRUBIN,DIRECT 0.2 mg/dL (0.0-0.2); BILIRUBIN,TOTAL 0.4 mg/dL (0.2-1.0); TOTAL PROTEIN, SERUM 6.8 g/dL (6.4-8.2)
[2024-01-12 06:42] LABS: CALCIUM, SERUM 9.2 mg/dL (8.5-10.1); CREATININE 0.5 mg/dL (0.6-1.3); MAGNESIUM 1.8 mg/dL (1.8-2.4); PHOSPHORUS 3.5 mg/dL (2.5-4.9); POTASSIUM 3.3 mmol/L (3.5-5.1)
[2024-01-12 07:00] VITALS: BP 121/87; TEMP 98.1; O2SAT 95
[2024-01-12 07:16] LABS: LIPASE > 375 U/L (16-77)
[2024-01-12 11:06] LABS: ANISOCYTOSIS 1+; BASOPHILS % (MANUAL) 0 % (0.0-2.0); EOSINOPHILS % (MANUAL) 3 % (0-4); HYPOCHROMASIA 1+; LYMPHOCYTES % (MANUAL) 35 % (16-48); MONOCYTES % (MANUAL) 9 % (0-11.0); NEUTROPHILS % (MANUAL) 53 (42-76); OVALOCYTES 1+; PLATELET ESTIMATE ADEQUATE
[2024-01-12 16:00] VITALS: BP 139/88; TEMP 98; O2SAT 94
[2024-01-12] MEDS: ENSURE CLEAR 237 ML LIQUID (MIX BERRY) PO SCH (16:59)
[2024-01-12] MEDS: POTASSIUM CHLORIDE 20 MEQ TAB.PRT.SR PO ONE (19:22)
[2024-01-12 20:00] VITALS: BP 140/101; TEMP 98.1; O2SAT 98
[2024-01-13 06:47] LABS: BASOPHILS # (AUTO) 0.1 K/uL (0.0-0.2); BASOPHILS % (AUTO) 3.9 % (0.0-2.0); EOSINOPHILS # (AUTO) 0.2 K/uL (0.0-0.7); EOSINOPHILS % (AUTO) 4.7 % (0.0-6.0); HEMATOCRIT 28 % (33-45); HEMOGLOBIN 8.6 g/dL (11.5-14.8); LYMPHOCYTES # (AUTO) 1.2 K/uL (0.8-4.8); LYMPHOCYTES % (AUTO) 33.4 % (20.0-44.0); MEAN CORPUSCULAR HEMOGLOBIN 21 PG (26.0-33.0); MEAN CORPUSCULAR HGB CONC 30 g/dl (31.0-36.0); MEAN CORPUSCULAR VOLUME 71 fL (82-100); MONOCYTES # (AUTO) 0.8 K/uL (0.1-1.30); MONOCYTES % (AUTO) 21.5 % (2.0-12.0); NEUTROPHILS # (AUTO) 1.3 K/uL (1.8-8.9); NEUTROPHILS % (AUTO) 36.5 % (43.0-81.0); PLATELET COUNT (AUTO) 308 K/uL (150-450); RED BLOOD CELL COUNT(AUTO) 4.02 MIL/uL (4.0-5.2); WHITE BLOOD COUNT (AUTO) 3.6 K/uL (4.3-11.0)
[2024-01-13 07:16] LABS: CALCIUM, SERUM 8.2 mg/dL (8.5-10.1); CREATININE 0.4 mg/dL (0.6-1.3); MAGNESIUM 1.7 mg/dL (1.8-2.4); PHOSPHORUS 4.1 mg/dL (2.5-4.9); POTASSIUM 3.4 mmol/L (3.5-5.1)
[2024-01-13 09:14] LABS: ANISOCYTOSIS 1+; BASOPHILS % (MANUAL) 0 % (0.0-2.0); EOSINOPHILS % (MANUAL) 3 % (0-4); HYPOCHROMASIA 1+; LYMPHOCYTES % (MANUAL) 31 % (16-48); MONOCYTES % (MANUAL) 14 % (0-11.0); NEUTROPHILS % (MANUAL) 52 (42-76); OVALOCYTES 1+; PLATELET ESTIMATE ADEQUATE; TARGET CELLS 1+
[2024-01-13 09:46] VITALS: BP 130/97; TEMP 98.2; O2SAT 97
[2024-01-13] MEDS: MAGNESIUM OXIDE 400 MG TABLET PO ONE (10:33)
[2024-01-13] MEDS: POTASSIUM CHLORIDE 20 MEQ TAB.PRT.SR PO SCH (11:23)
[2024-01-13] MEDS: POTASSIUM CHLORIDE 20 MEQ POWDER PACKET PO ONE (11:23)
[2024-01-13] MEDS ORDERED: LORAZEPAM 1 MG TABLET PO PRN (11:30)
[2024-01-13] MEDS ORDERED: MAGNESIUM OXIDE 400 MG TABLET PO ONE (11:30)
[2024-01-13] MEDS: SOD FERRIC GLUC 125 MG in IV NS 0.9% 100 ML IV SCH (14:37)
[2024-01-13 16:23] VITALS: BP 122/100; TEMP 98.2; O2SAT 96
[2024-01-13 20:00] VITALS: BP 130/84; TEMP 97.5; O2SAT 96
[2024-01-14 06:42] LABS: CALCIUM, SERUM 9.1 mg/dL (8.5-10.1); CREATININE 0.4 mg/dL (0.6-1.3); MAGNESIUM 1.9 mg/dL (1.8-2.4); POTASSIUM 3.8 mmol/L (3.5-5.1)
[2024-01-14 08:00] VITALS: BP 119/94; TEMP 98.1; O2SAT 94
[2024-01-14 16:00] VITALS: BP 123/93; TEMP 98.2; O2SAT 96
[2024-01-14 20:00] VITALS: BP 126/83; TEMP 98.4; O2SAT 96
[2024-01-15 08:33] VITALS: BP 149/93; TEMP 98.6; O2SAT 97
[2024-01-15] MEDS ORDERED: OXYC-128 PO (09:51)
[2024-01-15] MEDS ORDERED: LORA-259 PO (09:51)
[2024-01-15 16:48] VITALS: BP 125/84; TEMP 98.4; O2SAT 96
[2024-01-18 10:09] LABS: *HGBFRC HEMOGLOBIN A 98.2 % (96.4-98.8); *HGBFRC HEMOGLOBIN A2 1.8 % (1.8-3.2)
== END 2024-01-15 18:00 | disposition home or self-care (01) | DRG 282 ==
LOC: ER 21:58 → MED 01-07 02:32
PROVIDERS: ADMIT Student in an Organized Health Care Education/Training Program; ATTEND Nurse Practitioner Acute Care
DX: K85.20 Alcohol induced acute pancreatitis without necrosis or infection (principal); R18.8 Other ascites; E44.0 Moderate protein-calorie malnutrition; E88.09 Other disorders of plasma-protein metabolism, not elsewhere classified; K76.0 Fatty (change of) liver, not elsewhere classified; D64.9 Anemia, unspecified; F10.10 Alcohol abuse, uncomplicated; D50.9 Iron deficiency anemia, unspecified; E83.42 Hypomagnesemia; E87.6 Hypokalemia; K86.1 Other chronic pancreatitis; R74.01 Elevation of levels of liver transaminase levels; Z68.22 Body mass index [BMI] 22.0-22.9, adult; Z79.899 Other long term (current) drug therapy; Z91.09 Other allergy status, other than to drugs and biological substances; Y90.9 Presence of alcohol in blood, level not specified; F32.A Depression, unspecified; F41.0 Panic disorder [episodic paroxysmal anxiety]; K86.2 Cyst of pancreas; Z82.49 Family history of ischemic heart disease and other diseases of the circulatory system
CPT/HCPCS: 36415; 80048-TC; 80053-TC; 80076-TC; 81001; 83690-TC; 83735-TC; 84100-TC; 84702-TC; 84703-TC; 85025-TC; 86140-TC; 87086-TC; A4223; G0378; J1170; J1644; J1885; J2270; J2405; J2470; J2916; J3480; J3490; J7030; J7040; J7120

== ENCOUNTER 2024-06-15 00:03 | Emergency (ER) | payer MEDICAID ==
[~2024-06-15] VITALS: Ht 152.4 cm; Wt 47.6 kg
[~2024-06-15 00:03] MED LIST changes: +LORA-259 PO
[2024-06-15 00:25] VITALS: BP 148/100; TEMP 98.3
[2024-06-15] MEDS ORDERED: KETOROLAC TROMETHAMINE INJ 30 MG/ML VIAL ONE (01:43)
[2024-06-15] MEDS: KETOROLAC TROMETHAMINE INJ 30 MG/ML VIAL IV ONE (01:49)
[2024-06-15 01:53] LABS: BASOPHILS % (AUTO) 0.7 % (0.0-2.0); EOSINOPHILS # (AUTO) 0.1 K/uL (0.0-0.7); EOSINOPHILS % (AUTO) 1.9 % (0.0-6.0); HEMATOCRIT 33 % (33-45); HEMOGLOBIN 10.4 g/dL (11.5-14.8); LYMPHOCYTES # (AUTO) 1.1 K/uL (0.8-4.8); LYMPHOCYTES % (AUTO) 21.1 % (20.0-44.0); MEAN CORPUSCULAR HEMOGLOBIN 24 PG (26.0-33.0); MEAN CORPUSCULAR HGB CONC 32 g/dl (31.0-36.0); MEAN CORPUSCULAR VOLUME 77 fL (82-100); MONOCYTES # (AUTO) 0.9 K/uL (0.1-1.30); MONOCYTES % (AUTO) 17.4 % (2.0-12.0); NEUTROPHILS # (AUTO) 3.2 K/uL (1.8-8.9); NEUTROPHILS % (AUTO) 58.9 % (43.0-81.0); PLATELET COUNT (AUTO) 136 K/uL (150-450); RED BLOOD CELL COUNT(AUTO) 4.28 MIL/uL (4.0-5.2); RED CELL DISTRIBUTION WIDTH 19.7 % (11.5-15.0); WHITE BLOOD COUNT (AUTO) 5.4 K/uL (4.3-11.0)
[2024-06-15 02:00] LABS: ALANINE AMINOTRANSFERASE 89 U/L (12-78); ALBUMIN 3.3 g/dL (3.4-5.0); ALKALINE PHOSPHATASE 83 U/L (46-116); ASPARTATE AMINOTRANSFERASE 89 U/L (15-37); BILIRUBIN,TOTAL 0.4 mg/dL (0.2-1.0); CALCIUM, SERUM 9.2 mg/dL (8.5-10.1); CARBON DIOXIDE 31 mmol/L (21-32); CHLORIDE 100 mmol/L (98-107); CREATININE 0.5 mg/dL (0.6-1.3); GLUCOSE 98 mg/dL (74-106); LIPASE 310 U/L (16-77); POTASSIUM 3.9 mmol/L (3.5-5.1); SODIUM SERUM 134 mmol/L (136-145); TOTAL PROTEIN, SERUM 7.5 g/dL (6.4-8.2); UREA NITROGEN, BLOOD 9 mg/dL (7-18)
[2024-06-15 02:17] LABS: ALCOHOL, BLOOD < 3 mg/dL (0-10)
[2024-06-15 02:35] LABS: PREGNANCY TEST URINE QUAL NEGATIVE (NEGATIVE)
[2024-06-15 02:36] LABS: ADD URINE CULTURE NO; APPEARANCE,URINE SLIGHTLY CLOUDY (CLEAR); BACTERIA,URINE None seen /HPF (None Seen); BILIRUBIN,URINE NEGATIVE (NEGATIVE); BLOOD, URINE NEGATIVE Ery/uL (NEGATIVE); COLOR,URINE YELLOW (YELLOW); KETONES,URINE NEGATIVE (NEGATIVE); LEUKOCYTE ESTERASE ,URINE NEGATIVE (NEGATIVE); NITRITE, URINE NEGATIVE (NEGATIVE); PROTEIN,URINE NEGATIVE (NEGATIVE); RBC,URINE 0-2 /HPF (0-2); SQUAMOUS EPITHELIAL CELL,UR Rare /HPF (None Seen); UGLUCOSE NEGATIVE (NEGATIVE); UROBILINOGEN,URINE 0.2 EU/dL (0.2); WBC,URINE 0-2 /HPF (0-3)
[2024-06-15 02:44] LABS: AMPHETAMINE, URINE NEGATIVE (NEGATIVE); BARBITURATE, URINE NEGATIVE (NEGATIVE); BENZODIAZEPINE, URINE NEGATIVE (NEGATIVE); CANNABINOID, URINE NEGATIVE (NEGATIVE); COCCAINE, URINE NEGATIVE (NEGATIVE); PHENCYCLIDINE SCREEN,URINE NEGATIVE (NEGATIVE)
[2024-06-15 02:48] LABS: OPIATE, URINE POSITIVE (NEGATIVE)
[2024-06-15] MEDS ORDERED: HYDROMORPHONE 1 MG/1 ML DISP.SYRIN ONE (02:55)
[2024-06-15] MEDS: HYDROMORPHONE 1 MG/1 ML DISP.SYRIN IV ONE (02:59)
[2024-06-15 03:03] VITALS: O2SAT 97
== END 2024-06-15 03:03 | disposition home or self-care (01) ==
LOC: ER 00:05
DX: K86.1 Other chronic pancreatitis (principal); Z88.5 Allergy status to narcotic agent
CPT/HCPCS: 99284; 96374; 96375; 85025; 83690; 84703; 81001; 36415; 80053; 80320; 80307; J1885; J1171; G0480